=== PATIENT | male | born 1965 | race Caucasian/White ===

== ENCOUNTER 2018-08-06 18:42 | Inpatient (IN) | payer OTHER, BC ==
[2018-08-06] MEDS ORDERED: SODIUM CHLORIDE 1,000 ML IV STA (19:09)
[2018-08-06] MEDS: NOREPINEPHRINE BITARTRATE 4,000 MCG in DEXTROSE 5%-WATER - 496 ML IV SCH (19:25)
[2018-08-06] MEDS ORDERED: NOREPINEPHRINE BITARTRATE 4 MG/4 ML ML IV ONE (19:29)
[2018-08-06 19:35] LABS: VENOUS PO2 35.8 mmHg (30-40)
[2018-08-06 19:40] LABS: VENOUS PH 6.85 (7.31-7.41)
[2018-08-06 19:41] LABS: VENOUS PC02 98.5 mmHg (41-51)
[2018-08-06 19:43] LABS: BASO % 0.8 % (0-2.0); EOS % 0.7 % (0-4.5); HEMATOCRIT 37.9 % (35.4-49); HEMOGLOBIN 11.3 GM/dL (11.7-16.9); LYMPH % 26.9 % (8-40); MCH 30.9 pg (25.7-33.7); MCHC 29.8 g/dl (32.0-35.9); MEAN CELL VOLUME 103.6 fl (80-96); MEAN PLT VOLUME 10.8 fl (7.5-11.1); MONO % 5.2 % (3.8-10.2); NEUT % 66.4 % (42.8-82.8); PLATELET COUNT 218 K/MM3 (134-434); RBC 3.66 M/mm3 (4.00-5.60); RDW 17.6 % (11.9-15.9)
--- NOTE | 2018-08-06 20:04 | PDOC ---
Attending Attestation - Resident Resident Name: Reginald Connors - HPI HPI: 08/06/18 20:15 The patient is a 52 year old male, with a significant past medical history of CHF, Pulmonary Hypertension, O2 Dependent,Sleep Apnea, Constipation,GI Bleed, Renal Failure, ESRD on Hemodialysis, Anemia, Gout, Diabetes Mellitus, who presents to the emergency department for witnessed cardiac arrest at around 1810 this evening. <Jessica Weir - Last Filed: 08/06/18 20:17> - ED Attending Attestation I have performed the following: I have examined & evaluated the patient, The case was reviewed & discussed with the resident, I agree w/resident's findings & plan, Exceptions are as noted - Physicial Exam PE: 08/07/18 01:30 Vitals: Triage Vital signs reviewed General Appearance: Morbidly obese, intubated. CPR in progress Head: Atraumatic, Eyes: Pupils fixed Cardiac:Asystole Lungs: Intubated/ Bilateral Breath Sounds Abdomen: Soft, non distended, normal bowel sounds, non tender to palpation Skin: Warm and dry, no rashes or lesions, no rash, no petechiae Neuro: Unresponsive - Critical Care Time Total Critical Care Time: 65 Critical Care Statement: The care of this patient involved high complexity decision making to prevent further life threatening deterioration of the patient 's condition and/or to evaluate & treat vital organ system(s) failure or risk of failure. - Medical Decision Making 08/06/18 20:09 52 years old past medical history significant for CHF pulmonary hypertension insulin-dependent diabetes renal failure on dialysis Thursday who presents to the emergency department with witnessed cardiac arrest while at dialysis today. At approximately 545 during dialysis patient had a witnessed arrest CPR was started EMS was called upon arrival by EMS at approximately 6 PM patient intubated with a Kendrick airway tube patient was pulseless CPR continued patient was given 1 amp of calcium gluconate 1 amp of sodium bicarbonate, and 3 rounds of epinephrine. High-quality CPR continued during transfer with no return of spontaneous circulation. Patient arrived at the emergency department about 6:30 CPR continued additional bicarbonate and epinephrine given Patient with large amount of vomit in airway difficult to obtain oxygen saturation difficult to auscultate breath sounds decision made to reintubate After suctioning patient reintubated with no complications confirmed by direct visualization auscultation and capnography After greater than 1 hour of total CPR patient regained a pulse blood pressure 160 initially patient noted to be tachycardic but with a blood pressure and a pulse Post arrest EKG intially demonstrated wide complex tachycardia, Repeat EKG showed narrow complex sinus rhythm Hypothermia protocol initiated Reevaluation patient's blood pressure began to drop started on peripheral Levophed central line placed confirmed by ultrasound and x-ray Map greater than 60 Repeat labs notable for hyperkalemia 6.5 patient had a ready received sodium bicarbonate and calcium gluconate insulin and dextrose given Patient's at bedside informed and updated. Prognosis very guarded at this time discussed at length with Patient admitted to ICU for further management. <Richard Valencia - Last Filed: 08/07/18 01:33> Attestations - Attestations 08/06/18 20:16 Documentation prepared by Jessica Weir, acting as medical coding specialist for Richard Valencia MD <Jessica Weir - Last Filed: 08/06/18 20:17>
[2018-08-06 20:08] LABS: INR 1.1 (0.83-1.09)
[2018-08-06 20:11] LABS: ACTIVATED PTT 27.5 SECONDS (25.2-36.5)
[2018-08-06 20:34] LABS: MACROCYTOSIS 1+
[2018-08-06 20:35] LABS: PLATELET ESTIMATE ADEQUATE
--- NOTE | 2018-08-06 20:40 | PDOC ---
History of Present Illness <Judi Storey - Last Filed: 08/06/18 21:05> <Carlos Manuel Montana - Last Filed: 08/06/18 21:16> - History of Present Illness Initial Comments: 08/06/18 22:12 52M with pmh CHF pulmonary hypertension insulin-dependent diabetes renal failure on dialysis M/W/F brought in by EMS after witnessed cardiac arrest while at dialysis today an hour and half before the end. At approximately 545 during dialysis patient had a witnessed arrest CPR was started EMS was called upon arrival by EMS at approximately 6 PM patient intubated with a Kendrick airway tube patient was PEA. CPR with ANGELIA machine continued patient was given 1 amp of calcium gluconate 1 amp of sodium bicarbonate, and 4 rounds of epinephrine. High-quality CPR continued during transfer with no return of spontaneous circulation. Patient arrived at the emergency department about 6:30. Continued CPR with Angelia machine and patient given 3 more rounds of epi, 1 of bicard and 1 of calcium after which the patient switched his rhythm from PEA to Wide complex V-Tach with pulse. Meanwhile large amount of vomit notice in airway with low saturation in the 40- 30's and difficulty venticlating. Patyient was reintubated with ET tube and sat came back up to 100%. Confirmed by direct visualization auscultation and capnography ROSC was obtained 60min post arrest. After suctioning patient reintubated with no complications After greater than 1 hour of total CPR patient regained a pulse blood pressure 160 initially patient noted to be tachycardic but with a blood pressure and a pulse <Reginald Connors - Last Filed: 08/06/18 22:56> - General Chief Complaint: Cardiac Arrest Stated Complaint: CARDIAC ARREST Time Seen by Provider: 08/06/18 19:08 Past History <Judi Storey - Last Filed: 08/06/18 21:05> <Carlos Manuel Montana - Last Filed: 08/06/18 21:16> - Past Medical History Anemia: Yes (REQUIRING TRANSFUSION) Asthma: No Cancer: No Cardiac Disorders: Yes (HYPERKALEMIC CARDIAC ARREST) CVA: No COPD: Yes (RESOLVED) CHF: Yes (DIASTOLIC CHF H/O) Dementia: No Diabetes: Yes (IDDM) GI Disorders: Yes (SLIDING HIATAL HERNIA,MULTIPLE ANTRAL EROSIONS) Disorders: No HTN: Yes (PULMONARY HYPERTENSION H/O) Hypercholesterolemia: Yes Liver Disease: No Seizures: No Thyroid Disease: No - Surgical History Abdominal Surgery: Yes (BILATERAL INGUINAL HERNIA) Appendectomy: No Cardiac Surgery: Yes (EXPLORATORY S/P TRAUMA: 1982) Cholecystectomy: No Lung Surgery: Yes (MAMMARY ARTERY SEVERED BY GLASS REQUIRING THORACOTOMY-1982) Neurologic Surgery: No Orthopedic Surgery: No - Suicide/Smoking/Psychosocial Hx Smoking Status: No Smoking History: Unknown if ever smoked Have you smoked in the past 12 months: No Number of Cigarettes Smoked Daily: 0 If you are a former smoker, when did you quit?: 1994 Hx Alcohol Use: No Drug/Substance Use Hx: No Substance Use Type: None Hx Substance Use Treatment: No <Reginald Connors - Last Filed: 08/06/18 22:56> - Past Medical History Allergies/Adverse Reactions: Allergies Allergy/AdvReac Type Severity Reaction Status Date / Time amoxicillin trihydrate Allergy Intermediate Rash Verified 08/06/18 19:55 [From Augmentin] ciprofloxacin [From Cipro] Allergy Intermediate Rash Verified 08/06/18 19:55 ciprofloxacin HCl Allergy Intermediate Rash Verified 08/06/18 19:55 [From Cipro] potassium clavulanate Allergy Intermediate Rash Verified 08/06/18 19:55 [From Augmentin] cyclosporine Allergy Verified 08/06/18 19:55 Home Medications: Ambulatory Orders Aspirin [ASA -] 81 mg PO DAILY 02/14/16 Atorvastatin Ca [Lipitor] 10 mg PO HS 02/14/16 Gabapentin 400 mg PO DAILY 02/14/16 Sevelamer Carbonate [Renvela] 3,200 mg PO TID 01/05/18 Folic Acid/Vit B Complex and C [Dialyvite Tablet] 1 each PO 08/06/18 Review of Systems - Review of Systems Able to Perform ROS?: No <Reginald Connors - Last Filed: 08/06/18 22:56> *Physical Exam - Vital Signs Last Vital Signs Temp Pulse Resp BP Pulse Ox 61 14 79/59 L 100 08/06/18 19:25 08/06/18 19:05 08/06/18 19:25 08/06/18 19:05 <Judi Storey - Last Filed: 08/06/18 21:05> - Vital Signs Last Vital Signs Temp Pulse Resp BP Pulse Ox 61 14 79/59 L 100 08/06/18 19:25 08/06/18 19:05 08/06/18 19:25 08/06/18 19:05 <Carlos Manuel Montana - Last Filed: 08/06/18 21:16> - Vital Signs Last Vital Signs Temp Pulse Resp BP Pulse Ox 61 14 79/59 L 100 08/06/18 19:25 08/06/18 19:05 08/06/18 19:25 08/06/18 19:05 - Physical Exam General Appearance: Yes: Obese HEENT: positive: Other (intubated, vomitus in the mouth) Respiratory/Chest: positive: Other (ventilated) Gastrointestinal/Abdominal: positive: Other (Greatly protuberant and distended abdomen. ) Neurologic: positive: Other (pupils fixed and dilated.) <Reginald Connors - Last Filed: 08/06/18 22:56> Procedures - Intubation Time of Intubation: 18:45 Intubation Method: orotracheal Blade used: Mac Tube Size (Fr): 7.0 Tube position @ lip (cm): 22 Tube position confirmed by: Direct visualization, CO2 detector, Chest x-ray, Breath sounds Breath Sounds after Intubation: equal Intubation Complications: no complications Post Intubation Xray: Yes <Judi Storey - Last Filed: 08/06/18 21:05> - Central Line Central Line Lumen: triple Central Line Position: internal jugular (L) Complications: none Post Central Line Insertion: sutured, good blood return, position confirmed w/ CXR <Carlos Manuel Montana - Last Filed: 08/06/18 21:16> ED Treatment Course - LABORATORY CBC & Chemistry Diagram: 08/06/18 19:10 08/06/18 19:10 - ADDITIONAL ORDERS Additional order review: Laboratory Results 08/06/18 08/06/18 08/06/18 19:10 19:10 19:10 PT with INR INR PTT (Actin FS) VBG pH POC VBG pCO2 POC VBG pO2 VBG HCO3 VBG O2 Sat (Marzena) VBG Base Excess Sodium Potassium Chloride Carbon Dioxide Anion Gap BUN Creatinine Creat Clearance w eGFR POC Glucometer 398 Random Glucose Lactic Acid 12.2 H* Calcium Total Bilirubin AST ALT Alkaline Phosphatase Troponin I < 0.02 Total Protein Albumin 08/06/18 08/06/18 08/06/18 19:10 19:10 19:10 PT with INR 13.00 INR 1.10 H PTT (Actin FS) 27.5 VBG pH 6.85 L* POC VBG pCO2 98.5 H* POC VBG pO2 35.8 VBG HCO3 16.3 L VBG O2 Sat (Marzena) 30.4 L VBG Base Excess -19.7 L Sodium Cancelled Potassium Cancelled Chloride Cancelled Carbon Dioxide Cancelled Anion Gap Cancelled BUN Cancelled Creatinine Cancelled Creat Clearance w eGFR Cancelled POC Glucometer Random Glucose Cancelled Lactic Acid Calcium Cancelled Total Bilirubin Cancelled AST Cancelled ALT Cancelled Alkaline Phosphatase Cancelled Troponin I Total Protein Cancelled Albumin Cancelled 08/06/18 08/06/18 19:10 19:10 RBC 3.66 L MCV 103.6 H MCHC 29.8 L RDW 17.6 H MPV 10.8 Neutrophils % 66.4 Lymphocytes % 26.9 D Monocytes % 5.2 Eosinophils % 0.7 Basophils % 0.8 POC Glucometer 398 - Medications Given in the ED: ED Medications Discontinued Medications Generic Name Dose Route Start Last Admin Trade Name Devonq PRN Reason Stop Dose Admin Sodium Chloride 1,000 mls @ 1,000 mls/hr 08/06/18 19:09 08/06/18 19:00 Normal Saline - IV 08/06/18 20:08 1,000 mls/hr ASDIR STA Administration <Judi Storey - Last Filed: 08/06/18 21:05> - LABORATORY CBC & Chemistry Diagram: 08/06/18 19:10 08/06/18 20:30 - ADDITIONAL ORDERS Additional order review: Laboratory Results 08/06/18 08/06/18 08/06/18 20:30 19:10 19:10 PT with INR INR PTT (Actin FS) VBG pH POC VBG pCO2 POC VBG pO2 VBG HCO3 VBG O2 Sat (Marzena) VBG Base Excess Sodium 136 Potassium 6.5 H* Chloride 100 Carbon Dioxide 16 L Anion Gap 20 H BUN 56 H Creatinine 5.5 H Creat Clearance w eGFR 10.97 POC Glucometer 398 Random Glucose 424 H* Lactic Acid Calcium 9.0 Total Bilirubin 0.3 AST 120 H ALT 87 H Alkaline Phosphatase 188 H Troponin I < 0.02 Total Protein 6.6 Albumin 2.7 L 08/06/18 08/06/18 08/06/18 19:10 19:10 19:10 PT with INR INR PTT (Actin FS) VBG pH 6.85 L* POC VBG pCO2 98.5 H* POC VBG pO2 35.8 VBG HCO3 16.3 L VBG O2 Sat (Marzena) 30.4 L VBG Base Excess -19.7 L Sodium Cancelled Potassium Cancelled Chloride Cancelled Carbon Dioxide Cancelled Anion Gap Cancelled BUN Cancelled Creatinine Cancelled Creat Clearance w eGFR Cancelled POC Glucometer Random Glucose Cancelled Lactic Acid 12.2 H* Calcium Cancelled Total Bilirubin Cancelled AST Cancelled ALT Cancelled Alkaline Phosphatase Cancelled Troponin I Total Protein Cancelled Albumin Cancelled 08/06/18 19:10 PT with INR 13.00 INR 1.10 H PTT (Actin FS) 27.5 VBG pH POC VBG pCO2 POC VBG pO2 VBG HCO3 VBG O2 Sat (Marzena) VBG Base Excess Sodium Potassium Chloride Carbon Dioxide Anion Gap BUN Creatinine Creat Clearance w eGFR POC Glucometer Random Glucose Lactic Acid Calcium Total Bilirubin AST ALT Alkaline Phosphatase Troponin I Total Protein Albumin 08/06/18 08/06/18 19:10 19:10 RBC 3.66 L MCV 103.6 H MCHC 29.8 L RDW 17.6 H MPV 10.8 Neutrophils % 66.4 Lymphocytes % 26.9 D Monocytes % 5.2 Eosinophils % 0.7 Basophils % 0.8 POC Glucometer 398 - Medications Given in the ED: ED Medications Discontinued Medications Generic Name Dose Route Start Last Admin Trade Name Freq PRN Reason Stop Dose Admin Sodium Chloride 1,000 mls @ 1,000 mls/hr 08/06/18 19:09 08/06/18 19:00 Normal Saline - IV 08/06/18 20:08 1,000 mls/hr ASDIR STA Administration <Carlos Manuel Montana - Last Filed: 08/06/18 21:16> - LABORATORY CBC & Chemistry Diagram: 08/06/18 19:10 08/06/18 20:30 - ADDITIONAL ORDERS Additional order review: Laboratory Results 08/06/18 08/06/18 08/06/18 19:10 19:10 19:10 WBC RBC Hgb Hct MCV MCH MCHC RDW Plt Count MPV Absolute Neuts (auto) Neutrophils % Lymphocytes % Monocytes % Eosinophils % Basophils % Nucleated RBC % PT with INR INR PTT (Actin FS) VBG pH POC VBG pCO2 POC VBG pO2 VBG HCO3 VBG O2 Sat (Marzena) VBG Base Excess Sodium Potassium Chloride Carbon Dioxide Anion Gap BUN Creatinine Creat Clearance w eGFR POC Glucometer 398 Random Glucose Lactic Acid 12.2 H* Calcium Total Bilirubin AST ALT Alkaline Phosphatase Troponin I < 0.02 Total Protein Albumin 08/06/18 08/06/18 08/06/18 19:10 19:10 19:10 WBC RBC Hgb Hct MCV MCH MCHC RDW Plt Count MPV Absolute Neuts (auto) Neutrophils % Lymphocytes % Monocytes % Eosinophils % Basophils % Nucleated RBC % PT with INR 13.00 INR 1.10 H PTT (Actin FS) 27.5 VBG pH 6.85 L* POC VBG pCO2 98.5 H* POC VBG pO2 35.8 VBG HCO3 16.3 L VBG O2 Sat (Marzena) 30.4 L VBG Base Excess -19.7 L Sodium Cancelled Potassium Cancelled Chloride Cancelled Carbon Dioxide Cancelled Anion Gap Cancelled BUN Cancelled Creatinine Cancelled Creat Clearance w eGFR Cancelled POC Glucometer Random Glucose Cancelled Lactic Acid Calcium Cancelled Total Bilirubin Cancelled AST Cancelled ALT Cancelled Alkaline Phosphatase Cancelled Troponin I Total Protein Cancelled Albumin Cancelled 08/06/18 19:10 WBC 23.0 H RBC 3.66 L Hgb 11.3 L Hct 37.9 MCV 103.6 H MCH 30.9 MCHC 29.8 L RDW 17.6 H Plt Count 218 MPV 10.8 Absolute Neuts (auto) 15.3 H Neutrophils % 66.4 Lymphocytes % 26.9 D Monocytes % 5.2 Eosinophils % 0.7 Basophils % 0.8 Nucleated RBC % 1 H PT with INR INR PTT (Actin FS) VBG pH POC VBG pCO2 POC VBG pO2 VBG HCO3 VBG O2 Sat (Marzena) VBG Base Excess Sodium Potassium Chloride Carbon Dioxide Anion Gap BUN Creatinine Creat Clearance w eGFR POC Glucometer Random Glucose Lactic Acid Calcium Total Bilirubin AST ALT Alkaline Phosphatase Troponin I Total Protein Albumin 08/06/18 08/06/18 19:10 19:10 RBC 3.66 L MCV 103.6 H MCHC 29.8 L RDW 17.6 H MPV 10.8 Neutrophils % 66.4 Lymphocytes % 26.9 D Monocytes % 5.2 Eosinophils % 0.7 Basophils % 0.8 POC Glucometer 398 - RADIOLOGY Radiology Studies Ordered: Category Date Time Status CXRPORT [CHEST X-RAY PORTABLE*] [RAD] Stat Radiology 08/06/18 19:59 Completed - Medications Given in the ED: ED Medications Discontinued Medications Generic Name Dose Route Start Last Admin Trade Name John PRN Reason Stop Dose Admin Sodium Chloride 1,000 mls @ 1,000 mls/hr 08/06/18 19:09 08/06/18 19:00 Normal Saline - IV 08/06/18 20:08 1,000 mls/hr ASDIR STA Administration <Reginald Connors - Last Filed: 08/06/18 22:56> Medical Decision Making - Medical Decision Making 08/06/18 22:20 Hypotension correcteed withplacement of RIJ central line and norepinephrine. Correcting hyperkalemia with insulin and albuterol. Calcium already given to protext the heart. EKG @ 18:57: Wide QRS tachycardia, RBBB, inferior infarct, age undertermined, vent rate 129 EKG @20:51: Unusual P axis, possible ectopic atrial rhythm, RBB, vent rate 67 PAtient admitted to ICU 08/06/18 22:55 <Reginald Connors - Last Filed: 08/06/18 22:56> *DC/Admit/Observation/Transfer <Judi Storey - Last Filed: 08/06/18 21:05> <Carlos Manuel Montana - Last Filed: 08/06/18 21:16> - Discharge Dispostion Decision to Admit order: Yes <Reginald Connors - Last Filed: 08/06/18 22:56> Diagnosis at time of Disposition: Cardiac arrest
--- NOTE | 2018-08-06 20:46 | PN ---
Teaching Attending Note Name of Resident: Jose L Hill ATTENDING PHYSICIAN STATEMENT I saw and evaluated the patient. I reviewed the resident's note and discussed the case with the resident. I agree with the resident's findings and plan as documented. SUBJECTIVE: Patient is a 52 year old man with PMH of CHF, pulmonary hypertension, insulin- treated DM, ESRD on hemodialysis (M-W-F) and chronic hypotension (on midodrine) who presents to the ER with witnessed cardiac arrest while at dialysis today. At approximately 545 during dialysis patient had a witnessed arrest CPR was started EMS was called upon arrival by EMS at approximately 6 PM patient intubated with a Kendrick airway tube patient was pulseless CPR continued patient was given 1 amp of calcium gluconate 1 amp of sodium bicarbonate, and 3 rounds of epinephrine. High-quality CPR continued during transfer with no return of spontaneous circulation. Patient arrived at the emergency department about 6:30 CPR continued additional bicarbonate and epinephrine given. Patient with large amount of vomit in airway difficult to obtain oxygen saturation difficult to auscultate breath sounds decision made to reintubate. After greater than 1 hour of total CPR patient regained a pulse blood pressure 160 initially patient noted to be tachycardic but with a low blood pressure. Patient started on levphed and is on hypothermia protocol. OBJECTIVE: Unresponsive and intubated; obese Vital Signs Period Temp Pulse Resp BP Sys/[place] Pulse Ox Last 24 Hr 97.7 F 0-122 14-16 00-99/00-59 97-100 HEENT: No Jaundice, eye redness or discharge, Normocephalic, atraumatic. OGT in place. External ears are normal; No nasal discharge. Neck: Supple, nontender. No palpable adenopathy or thyromegaly. No JVD Chest: Skin tears on chest wall and sequelae of pruritus. Clear to auscultation and percussion. Heart: Regular. No S3, rub or murmur Abdomen: Distended, soft, and tympanic no HSM. No rebound or guarding. Hypoactive bowel sounds. Ext: Peripheral pulses intact. No leg edema. Left arm AV fistula. Skin: Warm and dry. No petechiae, rash or ecchymosis. Neuro: Intubated and unresponsive. Psych: Cannot assess Current Medications Generic Name Dose Route Start Last Admin Trade Name Freq PRN Reason Stop Dose Admin Chlorhexidine Gluconate 1 applic 08/06/18 22:00 Hibiclens For Decolonization - TP HS ELEONORA Norepinephrine Bitartrate 4, 500 mls @ 37.5 mls/hr 08/06/18 19:30 08/06/18 20 :00 000 mcg/ Dextrose IV 8 mcg/min TITR ELEONORA 60 mls/hr Titration Protocol 5 MCG/MIN Mupirocin 1 applic 08/06/18 22:00 Bactroban Ointment (For Decolonization) - NS 08/11/18 21:59 BID [facility] Home Medications Medication Instructions Recorded Aspirin [ASA -] 81 mg PO DAILY 02/14/16 Atorvastatin Ca [Lipitor] 10 mg PO HS 02/14/16 Gabapentin 400 mg PO DAILY 02/14/16 Sevelamer Carbonate [Renvela] 3,200 mg PO TID 01/05/18 Folic Acid/Vit B Complex and C 1 each PO 08/06/18 [Dialyvite Tablet] Abnormal Lab Results 08/06/18 08/06/18 08/06/18 19:10 19:10 19:10 WBC 23.0 H RBC 3.66 L Hgb 11.3 L MCV 103.6 H MCHC 29.8 L RDW 17.6 H Absolute Neuts (auto) 15.3 H Monocytes % (Manual) 3 L D Myelocytes % (Man) 5 H Nucleated RBC % 4 H Metamyelocytes 3 H INR 1.10 H ABG pH ABG pCO2 at Pt Temp ABG pO2 at Pt Temp ABG HCO3 ABG Base Excess VBG pH 6.85 L* POC VBG pCO2 98.5 H* VBG HCO3 16.3 L VBG O2 Sat (Marzena) 30.4 L VBG Base Excess -19.7 L Potassium Carbon Dioxide Anion Gap BUN Creatinine Random Glucose Lactic Acid AST ALT Alkaline Phosphatase Albumin 08/06/18 08/06/18 08/06/18 19:10 20:30 22:20 WBC RBC Hgb MCV MCHC RDW Absolute Neuts (auto) Monocytes % (Manual) Myelocytes % (Man) Nucleated RBC % Metamyelocytes INR ABG pH 6.96 L* ABG pCO2 at Pt Temp 75.1 H* ABG pO2 at Pt Temp 126 H ABG HCO3 16.1 L ABG Base Excess -17.2 L VBG pH POC VBG pCO2 VBG HCO3 VBG O2 Sat (Marzena) VBG Base Excess Potassium 6.5 H* Carbon Dioxide 16 L Anion Gap 20 H BUN 56 H Creatinine 5.5 H Random Glucose 424 H* Lactic Acid 12.2 H* AST 120 H ALT 87 H Alkaline Phosphatase 188 H Albumin 2.7 L ASSESSMENT AND PLAN: 1. ESRD/Post cardiac arrest and resuscitation - Etiology of cardiac arrest is unclear. Patient is being managed in the ICU on the ventilator and hypothermia blanket in place. Will manage hyperkalemia conservatively with Ca gluconate, glucose and insulin, pending dialysis. Once stable, will get abdominal CT to evaluate distension. Its unclear whether leukocytosis preceded CPR. No obvious source of infection. Sepsis workup done; will consult ID and ?treat with broad spectrum antibiotics pending culture. 2. Hypoalbuminemia - Possibly due to combined effects of malnutrition and inflammation associated with comorbid chronic conditions. Will ensure adequate dietary protein intake and also consult fur tinter. 3. DM For now, we will hold the home diabetes drugs and implement sliding scale insulin regimen. Provide comprehensive diabetes care with patient teaching and counseling about the importance of adherence to prescribed diabetes regimen, euglycemia, eye care and foot care. 4. Macrocytic Anemia - Do basic anemia work up including serial stool guaiacs, reticulocyte count and iron studies. Check B12 and folate levels. 5. Obesity Once clincially stable and appropriate, will after school counselor on the risks associated with obesity. Will provide patient all the necessary assistance, counseling and positive reinforcement to facilitate weight loss. Consult fur tinter. 6. DVT prophylaxis - Heparin 5000u sq tid. 7. Advance directives - Full code
[2018-08-06 21:09] LABS: ALBUMIN 2.7 g/dl (3.4-5.0); ALK PHOS 188 U/L (45-117); ANION GAP 20 MMOL/L (8-16); BILIRUBIN,TOTAL 0.3 mg/dL (0.2-1); BLOOD UREA NITROGEN 56 mg/dL (7-18); CHLORIDE 100 mmol/L (98-107); CO2 16 mmol/L (21-32); CREATININE 5.5 mg/dL (0.55-1.3); SGOT/AST 120 U/L (15-37); SGPT/ALT 87 U/L (13-61); SODIUM 136 mmol/L (136-145); TOT PROT 6.6 g/dl (6.4-8.2)
[2018-08-06 21:11] LABS: GLUCOSE,RANDOM 424 mg/dL (74-106)
[2018-08-06 21:12] LABS: POTASSIUM 6.5 mmol/L (3.5-5.1)
[2018-08-06] MEDS ORDERED: INSULIN REGULAR HUMAN 100 UNITS/ML *VIAL IVPUSH ONE (21:18)
[2018-08-06] MEDS ORDERED: ALBUTEROL SO4 0.5 % INH SOLN 2.5 MG/0.5 ML VIAL.NEB. NEB ONE (21:20)
[2018-08-06] MEDS ORDERED: INSULIN REGULAR HUMAN 100 UNITS/ML *VIAL ONE (21:34)
--- NOTE | 2018-08-06 22:20 | HP ---
CHIEF COMPLAINT: Cardiac Arrest PCP: Dr. Schroeder HISTORY OF PRESENT ILLNESS: 52yo M with h/o ESRD (M/W/F), dCHF, IDDM, pulmonary HTN, MJ, gout, and anemia of chronic disease who presented to the ED due to a witnessed cardiac arrest. Pt was receiving HD today and about 1.5 hrs into his session he was witnessed to become unresponsive 2/2 to sudden cardiac arrest (~5:45pm). During his dialysis session it was noted that pt was hypotensive and was given Midodrine for support. Pt has previously been on Midodrine before, however he did not respond to his baseline dosing this time. ACLS protocol was followed and upon arrival of EMS pt was intubated with a Kendrick Supraglottic tube and placed on a kelly compression device. Pt's original rhythm was noted to be PEA. Pt received 4 rounds of epi, 1 amp NaHCO3, 1 amp CaGluc in the field. Pt arrived at the ED shortly thereafter where CPR/ACLS protocol was continued. He received another 3 rounds of epi, 1 amp HCO3, and 1 amp CaGluc while noting rhythm changes to Wide Complex ventricular tachycardia. At this point pt was noted to have large amount secretions from his oropharynx with desaturation to 40's on pulse oximetry. Pt's was reintubated with size 7.0 ETT at the 22 jania resulting in increased saturations and notable ROSC at this time (total arrest time 50minutes). Pt had no return of neurological function and thus post-arrest TTM was initiated. Pt was placed on Levophed due to refractory hypotension at this time. PAST MEDICAL HISTORY: ESRD (M/W/F) dCHF IDDM PAH HTN MJ Gout Anemia of chronic disease PAST SURGICAL HISTORY: AVF creation Social History: Unable to obtain Family History: Unable to obtain Allergies amoxicillin trihydrate [From Augmentin] Allergy (Intermediate, Verified 19:55) Rash ciprofloxacin [From Cipro] Allergy (Intermediate, Verified 08/06/18 19:55) Rash ciprofloxacin HCl [From Cipro] Allergy (Intermediate, Verified 08/06/18 19:55) Rash potassium clavulanate [From Augmentin] Allergy (Intermediate, Verified 08/06/18 19:55) Rash cyclosporine Allergy (Verified 08/06/18 19:55) HOME MEDICATIONS: Home Medications Medication Instructions Recorded Aspirin [ASA -] 81 mg PO DAILY 02/14/16 Atorvastatin Ca [Lipitor] 10 mg PO HS 02/14/16 Gabapentin 400 mg PO DAILY 02/14/16 Sevelamer Carbonate [Renvela] 3,200 mg PO TID 01/05/18 Folic Acid/Vit B Complex and C 1 each PO 08/06/18 [Dialyvite Tablet] REVIEW OF SYSTEMS Unable to obtain PHYSICAL EXAMINATION Vital Signs - 24 hr 08/06/18 08/06/18 08/06/18 18:45 18:50 19:00 Temperature Pulse Rate 0 L Pulse Rate [ Apical] Respiratory 14 Rate Blood Pressure 00/00 L Blood Pressure [Right Arm] O2 Sat by Pulse 100 Oximetry (%) 08/06/18 08/06/18 08/06/18 19:05 19:25 20:00 Temperature 97.7 F Pulse Rate 122 H 61 81 Pulse Rate [ 78 Apical] Respiratory 14 16 Rate Blood Pressure 79/59 L 89/50 L Blood Pressure 89/50 L [Right Arm] O2 Sat by Pulse 100 100 Oximetry (%) 08/06/18 21:15 Temperature Pulse Rate Pulse Rate [ 81 Apical] Respiratory 16 Rate Blood Pressure Blood Pressure 99/55 L [Right Arm] O2 Sat by Pulse 100 Oximetry (%) GENERAL: Unresponsive to painful stimuli HEENT: Dried blood of left nare, NC, atraumatic calvarium, fixed pupils without corneal reflex, no doll's eyes, no gag reflex elicited, ETT noted with feculent materials suctions from oropharynx NECK: No JVD, trachea midline LUNGS: Rhonchorous breath sounds bilaterally. No wheezes, and no crackles. AC ventilator mode HEART: RRR, normal S1 and S2 without murmu. Chest wall noted with abrasions from Kelly device ABDOMEN: Soft, distended, distant hypoactive bowel sounds, no livedo reticularis MUSCULOSKELETAL: No CVA tenderness. EXTREMITIES: 1+ DP pulses, warm, No peripheral edema. Cap refill ~2-3sec. L AVF noted with weak palpable thrill NEUROLOGICAL: Fixed pupils, no corneal reflex, no doll's eyes appreciated, no gag reflex with ETT suction catheter SKIN: Warm, dry, normal turgor, no rashes Laboratory Results 08/06/18 08/06/18 08/06/18 19:10 19:10 19:10 WBC 23.0 H RBC 3.66 L Hgb 11.3 L Hct 37.9 MCV 103.6 H MCH 30.9 MCHC 29.8 L RDW 17.6 H Plt Count 218 MPV 10.8 Absolute Neuts (auto) 15.3 H Neutrophils % 66.4 Neutrophils % (Manual) 51.0 D Band Neutrophils % 10.0 Lymphocytes % 26.9 D Lymphocytes % (Manual) 25.0 Monocytes % 5.2 Monocytes % (Manual) 3 L D Eosinophils % 0.7 Eosinophils % (Manual) 1.0 D Basophils % 0.8 Basophils % (Manual) 0.0 Myelocytes % (Man) 5 H Nucleated RBC % 4 H Metamyelocytes 3 H Platelet Estimate Adequate Macrocytosis 1+ PT with INR 13.00 INR 1.10 H PTT (Actin FS) 27.5 VBG pH 6.85 L* POC VBG pCO2 98.5 H* POC VBG pO2 35.8 VBG HCO3 16.3 L VBG O2 Sat (Marzena) 30.4 L VBG Base Excess -19.7 L Sodium Potassium Chloride Carbon Dioxide Anion Gap BUN Creatinine Creat Clearance w eGFR POC Glucometer Random Glucose Lactic Acid Calcium Total Bilirubin AST ALT Alkaline Phosphatase Troponin I Total Protein Albumin Blood Type Antibody Screen 08/06/18 08/06/18 08/06/18 19:10 19:10 19:10 WBC RBC Hgb Hct MCV MCH MCHC RDW Plt Count MPV Absolute Neuts (auto) Neutrophils % Neutrophils % (Manual) Band Neutrophils % Lymphocytes % Lymphocytes % (Manual) Monocytes % Monocytes % (Manual) Eosinophils % Eosinophils % (Manual) Basophils % Basophils % (Manual) Myelocytes % (Man) Nucleated RBC % Metamyelocytes Platelet Estimate Macrocytosis PT with INR INR PTT (Actin FS) VBG pH POC VBG pCO2 POC VBG pO2 VBG HCO3 VBG O2 Sat (Marzena) VBG Base Excess Sodium Cancelled Potassium Cancelled Chloride Cancelled Carbon Dioxide Cancelled Anion Gap Cancelled BUN Cancelled Creatinine Cancelled Creat Clearance w eGFR Cancelled POC Glucometer Random Glucose Cancelled Lactic Acid 12.2 H* Calcium Cancelled Total Bilirubin Cancelled AST Cancelled ALT Cancelled Alkaline Phosphatase Cancelled Troponin I < 0.02 Total Protein Cancelled Albumin Cancelled Blood Type Antibody Screen 08/06/18 08/06/18 08/06/18 19:10 19:10 20:30 WBC RBC Hgb Hct MCV MCH MCHC RDW Plt Count MPV Absolute Neuts (auto) Neutrophils % Neutrophils % (Manual) Band Neutrophils % Lymphocytes % Lymphocytes % (Manual) Monocytes % Monocytes % (Manual) Eosinophils % Eosinophils % (Manual) Basophils % Basophils % (Manual) Myelocytes % (Man) Nucleated RBC % Metamyelocytes Platelet Estimate Macrocytosis PT with INR INR PTT (Actin FS) VBG pH POC VBG pCO2 POC VBG pO2 VBG HCO3 VBG O2 Sat (Marzena) VBG Base Excess Sodium 136 Potassium 6.5 H* Chloride 100 Carbon Dioxide 16 L Anion Gap 20 H BUN 56 H Creatinine 5.5 H Creat Clearance w eGFR 10.97 POC Glucometer 398 Random Glucose 424 H* Lactic Acid Calcium 9.0 Total Bilirubin 0.3 AST 120 H ALT 87 H Alkaline Phosphatase 188 H Troponin I Total Protein 6.6 Albumin 2.7 L Blood Type A POSITIVE Antibody Screen Negative ASSESSMENT/PLAN: Cardiac arrest with ROSC after 60 minutes Distributive shock Mixed metabolic and respiratory acidosis Lactic acidosis Abdominal distention Leukocytosis Hyperkalemia Transaminitis ESRD (M/W/F HD) IDDM HFpEF Neuro: No neurological return of baseline after PEA to V-tach arrest Begin TTM for target of <33* C if possible declining at 0.5*C per hour (Head CT needed for r/o ICH prior to initiation) --Start 24hr TTM once target temperature reached No brainstem reflexes appreciated; will assess after TTM however poor prognosis given neurological findings and time of arrest >>>15 min Respiratory: Pt on AC mode of vent 500/14/100%/5 Maintain saturations of >90% Likely aspiration pneumonitis given findings during arrest and post-arrest Continue further suctioning Low threshold for antibiotic administration given pneumonitis picture CXR daily Monitor ABG for interval improvement of respiratory acidosis while on AC Cardiovascular: Differential wide on cardiac arrest --Most likely 2/2 to hypotension during dialysis resulting in aspiration pneumonitis and resultant severe hypoxia --Currently on Levophed 8mcg; titrate for MAP 65+ --Troponins elevated due to cardiac arrest; no need to trend to peak Cardiology on board Renal: Pt anuric per ; no need for clements Nephrology on board; discussion re: possible dialysis in AM for correction of metabolic derangments Monitor Cr/BUN; increase multifactorial with global hypotension and improper dialysis being top Hyperkalemia likely factor of Cr failure and cell lysis; pt given CaGluc, albuterol, and insulin prior; trend K+ HCO3 amps as needed for mitigation of metabolic acidosis while lactic acidosis clears GI: Elevated transaminitis likely early liver injury vs. early shock liver presentation Trend LFTs but expect to increase in short term due to global hypotension Distention likely insufflation from supraglottic airway Decompressive OG placed with resultant AXR showing malpositioning of OG --Removed OG and NG placed by me in R nare (jania 65) with better stomach auscultation and notable return of feculant material through wall suction --AXR ordered with f/u showing placement below diaphragm Endocrine: BGM ACHS and ISS Strict glycemic control paramount in critically ill patient; goal 120-150 ID: Leukocytosis likely reactive, however must r/o reactive on top of infection Monitor temp BCx and UCx ordered in ED Lactic acidosis elevated 2/2 to cardiac arrest, continue to monitor ID on board One dose Meropenem for broadspectrum coverage to be dosed by pharmacy given ESRD FEN: Fluids: Use for CV stability as needed with monitoring volume status Electrolyte abnormalities: Hyperkalemia Nutrition: intubated Dispo: ICU admission GOC: Verbalized that pt has poor prognosis given sheer amount of time of the cardiac arrest without any meaninful return of neurological function. Per currently pt remains full code with all measures wanted. Son is en route as well. Further discussions to continue as weight of prognosis is still being processed by family. Case discussed with Dr. Noé Hill, DO - Im PGy-2 Visit type - Emergency Visit Emergency Visit: Yes ED Registration Date: 08/06/18 Care time: The patient presented to the Emergency Department on the above date and was hospitalized for further evaluation of their emergent condition. - New Patient This patient is new to me today: Yes Date on this admission: 08/07/18 - Critical Care Critical Care patient: Yes Total Critical Care Time (in minutes): 45 Critical Care Statement: The care of this patient involved high complexity decision making to prevent further life threatening deterioration of the patient 's condition and/or to evaluate & treat vital organ system(s) failure or risk of failure.
[2018-08-06 22:30] LABS: ARTERIAL BLD GAS O2 SATURATION 95.7 % (95-98); ARTERIAL BLOOD GAS BASE EXCESS -17.2 meq/l (-2-2); ARTERIAL BLOOD GAS PO2 126 mmHg (80-105); CARBOXYHEMOGLOBIN 0.7 % (0-2)
[2018-08-06 22:33] LABS: ALLENS TEST POSITIVE
[2018-08-06 22:37] LABS: ARTERIAL BLOOD GAS PCO2 75.1 mmHg (35-45); ARTERIAL BLOOD GAS pH 6.96 (7.35-7.45)
[2018-08-06] MEDS: CHLORHEXIDINE GLUCONATE 4% CLEANSER FOR DECOLONIZATION TP SCH (23:36)
[2018-08-06] MEDS: MUPIROCIN 2% TOPICAL OINTMENT FOR DECOLONIZATION NS SCH (23:56)
--- NOTE | 2018-08-07 00:09 | CONSULT ---
Consultation: REQUESTING PROVIDER: Dr. Connors CONSULT REQUEST: We have been asked to medically evaluate this patient for s/p cardiac arrest. HISTORY OF PRESENT ILLNESS: History taken by pt's and ED staff. 52M w/ pmhx of IDDM, diastolic CHF, pulmonary HTN, renal failure (on HD MWF), sleep apnea, gout presented to the ED after a cardiac arrest. Pt was getting hemodialysis when had a witnessed cardiac arrest 1.5 hours prior to the completion of his HD session at about 5:45pm. CPR was started and upon EMS arrival, pt was intubated with a Kendrick airway tube noted to be in PEA. He was then given 1 amp of calcium gluconate 1 amp of sodium bicarbonate, and 4 rounds of epinephrine. High-quality CPR continued during transfer with no return of spontaneous circulation. Upon arrival in the ED at 630pm, pt presented with continued CPR via TOPHER machine. He was given 3 more rounds of epi, 1 of bicarb and 1 of calcium after which the patient switched his rhythm from PEA to Wide complex V-Tach with a pulse. Large amount of vomit was noted in pt's oropharynx with desaturation in the 30-40s. As a result, pt as re-intubated with an ET tube which improved O2 sat to 100%. ROSC as obtained about 60 min post-arrest. Upon encounter, pt was started on hypothermia treatment for post-cardiac arrest protocol. He was also noted to be hyperkalemix at 6.5 after which he was given insulin and albuterol as well as previously treated with calcium gluconate. 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 Duarte about 2 weeks ago due to symptoms of shortness of breath and cyanotic lips during dialysis. Pt was subsequently advised to take Midodrine before, during, and after dialysis to prevent hypotensive episodes during dialysis. Pt has known history of hypotension over the pats 6-7 months. denies any pt history or family history of cardiac arrest. REVIEW OF SYSTEMS: Unable to obtain. PHYSICAL EXAMINATION Vital Signs - 24 hr 08/06/18 08/06/18 08/06/18 18:45 18:50 19:00 Temperature Pulse Rate 0 L Pulse Rate [ Apical] Respiratory 14 Rate Blood Pressure 00/00 L Blood Pressure [Right Arm] O2 Sat by Pulse 100 Oximetry (%) 03/08/06/18 08/06/18 19:05 19:25 20:00 Temperature 97.7 F Pulse Rate 122 H 61 81 Pulse Rate [ 78 Apical] Respiratory 14 16 Rate Blood Pressure 79/59 L 89/50 L Blood Pressure 89/50 L [Right Arm] O2 Sat by Pulse 100 100 Oximetry (%) 08/06/18 08/06/18 08/06/18 21:15 22:22 22:24 Temperature Pulse Rate 82 Pulse Rate [ 81 Apical] Respiratory 16 14 Rate Blood Pressure Blood Pressure 99/55 L [Right Arm] O2 Sat by Pulse 100 97 Oximetry (%) GENERAL: Intubated. Unresponsive to sternal rub. HEENT: AT/NC. Pupils fixed b/l. ET tube in place. Vomit remnants noted in oropharynx. NG tube in place. NECK: RIJ line in place. LUNGS: scattered rhonchi b/l. HEART: RRR. S1, S2. No murmurs noted. ABDOMEN: Obese. Significantly distended irreguarly shaped abdomen. No fluid shift, MUSCULOSKELETAL: EXTREMITIES: 2+ b/l dorsalis pedis pulses. NEUROLOGICAL: Absent pupillary or gag reflex b/l. SKIN: Multiple superficial lesions noted on midsternum. Laboratory Results - last 24 hr 08/06/18 08/06/18 08/06/18 19:10 19:10 19:10 WBC 23.0 H RBC 3.66 L Hgb 11.3 L Hct 37.9 MCV 103.6 H MCH 30.9 MCHC 29.8 L RDW 17.6 H Plt Count 218 MPV 10.8 Absolute Neuts (auto) 15.3 H Neutrophils % 66.4 Neutrophils % (Manual) 51.0 D Band Neutrophils % 10.0 Lymphocytes % 26.9 D Lymphocytes % (Manual) 25.0 Monocytes % 5.2 Monocytes % (Manual) 3 L D Eosinophils % 0.7 Eosinophils % (Manual) 1.0 D Basophils % 0.8 Basophils % (Manual) 0.0 Myelocytes % (Man) 5 H Nucleated RBC % 4 H Metamyelocytes 3 H Platelet Estimate Adequate Macrocytosis 1+ PT with INR 13.00 INR 1.10 H PTT (Actin FS) 27.5 Anticoagulation Therapy Puncture Site Patient Temperature ABG pH ABG pCO2 at Pt Temp ABG pO2 at Pt Temp ABG HCO3 ABG O2 Sat (Measured) ABG O2 Content ABG Base Excess Get Test VBG pH 6.85 L* POC VBG pCO2 98.5 H* POC VBG pO2 35.8 VBG HCO3 16.3 L VBG O2 Sat (Marzena) 30.4 L VBG Base Excess -19.7 L Carboxyhemoglobin Methemoglobin O2 Delivery Device Oxygen Flow Rate Vent Mode Vent Rate Mechanical Rate PEEP Pressure Support Vent Sodium Potassium Chloride Carbon Dioxide Anion Gap BUN Creatinine Creat Clearance w eGFR POC Glucometer Random Glucose Lactic Acid Calcium Total Bilirubin AST ALT Alkaline Phosphatase Troponin I Total Protein Albumin Blood Type Antibody Screen 08/06/18 08/06/18 08/06/18 19:10 19:10 19:10 WBC RBC Hgb Hct MCV MCH MCHC RDW Plt Count MPV Absolute Neuts (auto) Neutrophils % Neutrophils % (Manual) Band Neutrophils % Lymphocytes % Lymphocytes % (Manual) Monocytes % Monocytes % (Manual) Eosinophils % Eosinophils % (Manual) Basophils % Basophils % (Manual) Myelocytes % (Man) Nucleated RBC % Metamyelocytes Platelet Estimate Macrocytosis PT with INR INR PTT (Actin FS) Anticoagulation Therapy Puncture Site Patient Temperature ABG pH ABG pCO2 at Pt Temp ABG pO2 at Pt Temp ABG HCO3 ABG O2 Sat (Measured) ABG O2 Content ABG Base Excess Get Test VBG pH POC VBG pCO2 POC VBG pO2 VBG HCO3 VBG O2 Sat (Marzena) VBG Base Excess Carboxyhemoglobin Methemoglobin O2 Delivery Device Oxygen Flow Rate Vent Mode Vent Rate Mechanical Rate PEEP Pressure Support Vent Sodium Cancelled Potassium Cancelled Chloride Cancelled Carbon Dioxide Cancelled Anion Gap Cancelled BUN Cancelled Creatinine Cancelled Creat Clearance w eGFR Cancelled POC Glucometer Random Glucose Cancelled Lactic Acid 12.2 H* Calcium Cancelled Total Bilirubin Cancelled AST Cancelled ALT Cancelled Alkaline Phosphatase Cancelled Troponin I < 0.02 Total Protein Cancelled Albumin Cancelled Blood Type Antibody Screen 08/06/18 08/06/18 08/06/18 19:10 19:10 20:30 WBC RBC Hgb Hct MCV MCH MCHC RDW Plt Count MPV Absolute Neuts (auto) Neutrophils % Neutrophils % (Manual) Band Neutrophils % Lymphocytes % Lymphocytes % (Manual) Monocytes % Monocytes % (Manual) Eosinophils % Eosinophils % (Manual) Basophils % Basophils % (Manual) Myelocytes % (Man) Nucleated RBC % Metamyelocytes Platelet Estimate Macrocytosis PT with INR INR PTT (Actin FS) Anticoagulation Therapy Puncture Site Patient Temperature ABG pH ABG pCO2 at Pt Temp ABG pO2 at Pt Temp ABG HCO3 ABG O2 Sat (Measured) ABG O2 Content ABG Base Excess Get Test VBG pH POC VBG pCO2 POC VBG pO2 VBG HCO3 VBG O2 Sat (Marzena) VBG Base Excess Carboxyhemoglobin Methemoglobin O2 Delivery Device Oxygen Flow Rate Vent Mode Vent Rate Mechanical Rate PEEP Pressure Support Vent Sodium 136 Potassium 6.5 H* Chloride 100 Carbon Dioxide 16 L Anion Gap 20 H BUN 56 H Creatinine 5.5 H Creat Clearance w eGFR 10.97 POC Glucometer 398 Random Glucose 424 H* Lactic Acid Calcium 9.0 Total Bilirubin 0.3 AST 120 H ALT 87 H Alkaline Phosphatase 188 H Troponin I Total Protein 6.6 Albumin 2.7 L Blood Type A POSITIVE Antibody Screen Negative 08/06/18 22:20 WBC RBC Hgb Hct MCV MCH MCHC RDW Plt Count MPV Absolute Neuts (auto) Neutrophils % Neutrophils % (Manual) Band Neutrophils % Lymphocytes % Lymphocytes % (Manual) Monocytes % Monocytes % (Manual) Eosinophils % Eosinophils % (Manual) Basophils % Basophils % (Manual) Myelocytes % (Man) Nucleated RBC % Metamyelocytes Platelet Estimate Macrocytosis PT with INR INR PTT (Actin FS) Anticoagulation Therapy No Result Required. Puncture Site Right radial Patient Temperature 96 ABG pH 6.96 L* ABG pCO2 at Pt Temp 75.1 H* ABG pO2 at Pt Temp 126 H ABG HCO3 16.1 L ABG O2 Sat (Measured) 95.7 ABG O2 Content 16.6 ABG Base Excess -17.2 L Get Test Positive VBG pH POC VBG pCO2 POC VBG pO2 VBG HCO3 VBG O2 Sat (Marzena) VBG Base Excess Carboxyhemoglobin 0.7 Methemoglobin 0.6 O2 Delivery Device Vent Oxygen Flow Rate 100% Vent Mode No Result Required. Vent Rate 14 Mechanical Rate No Result Required. PEEP 5.0 Pressure Support Vent No Result Required. Sodium Potassium Chloride Carbon Dioxide Anion Gap BUN Creatinine Creat Clearance w eGFR POC Glucometer Random Glucose Lactic Acid Calcium Total Bilirubin AST ALT Alkaline Phosphatase Troponin I Total Protein Albumin Blood Type Antibody Screen Active Medications Chlorhexidine Gluconate (Hibiclens For Decolonization -) 1 applic TP HS ELEONORA Last Admin: 08/06/18 23:36 Dose: 1 applic Norepinephrine Bitartrate 4, (000 mcg/ Dextrose) 500 mls @ 37.5 mls/hr IV TITR ELEONORA; Protocol Last Titration: 08/06/18 20:00 Dose: 8 mcg/min, 60 mls/hr Vasopressin 50 units/ Sodium (Chloride) 100 mls @ 4 mls/hr IVPB ASDIR ELEONORA; Protocol Mupirocin (Bactroban Ointment (For Decolonization) -) 1 applic NS BID ELEONORA Stop: 08/11/18 21:59 Last Admin: 08/06/18 23:56 Dose: Not Given CONSULTS: Cardio- Dr. Duarte IMAGING: * EKG (18:57:54): Wide QRS tachycardia, RBBB, HR 129, QTc 577 * EKG (20:51:20): sinus rhythm, RBBB, HR 67, QTc 481 ms ASSESSMENT/PLAN: 52M w/ pmhx of IDDM, diastolic CHF, pulmonary HTN, renal failure (on HD MWF), sleep apnea, gout presented to the ED after a cardiac arrest CV #Post-cardiac arrest and resuscitation; likely 2/2 HD-induced hypotension, r/o infection -Pt achieved ROSC after ~60 min after multiple cycles of epi -Cont Levophed GTT and Vasopressin GTT for pressor support; maintain MAP >65 -Currently on hypothermia protocol; maintain at 33 degrees C [id number] -Trops neg x1, will repeat trops; EKG noted above -Cardio consulted #Lactic Acidosis -Initial lactate 12.2; will repeat lactate RENAL #CKD on HD MWF -likely 2/2 uncontrolled IDDM -nephro consulted -avoid nephrotoxins #Hyperkalemia; K+ 6.5 -given calcium gluconate, insulin, albuterol -will repeat CMP NEURO -Not currently on sedation -Neurochecks GI #Transaminitis -may be due to hepatic injury as a result of poor perfusion -repeat CMP in AM ENDO #IDDM -hold home meds -BGM/ISS ACHS ID -BCx, UCx, U/A pending; r/o infection Prophylaxis -SCDs/SQH -Protonix 4 mg IVP QD FEN -no IVf -replete lytes PRN (K+) -NPO Dispo -admit to ICU -full code Visit type - Emergency Visit Emergency Visit: Yes ED Registration Date: 08/06/18 Care time: The patient presented to the Emergency Department on the above date and was hospitalized for further evaluation of their emergent condition. - New Patient This patient is new to me today: Yes Date on this admission: 08/07/18 - Critical Care Critical Care patient: Yes Total Critical Care Time (in minutes): 40 Critical Care Statement: The care of this patient involved high complexity decision making to prevent further life threatening deterioration of the patient 's condition and/or to evaluate & treat vital organ system(s) failure or risk of failure.
[2018-08-07] MEDS ORDERED: VASOPRESSIN 20 UNITS/ML VIAL IV ONE (00:11)
[2018-08-07] MEDS: VASOPRESSIN 50 UNITS in SODIUM CHLORIDE 97.5 ML IVPB SCH (00:15)
[2018-08-07 01:41] LABS: ANION GAP 15 MMOL/L (8-16); BLOOD UREA NITROGEN 61 mg/dL (7-18); CALCIUM 8.5 mg/dL (8.5-10.1); CHLORIDE 99 mmol/L (98-107); CO2 20 mmol/L (21-32); CREATININE 5.4 mg/dL (0.55-1.3); SODIUM 134 mmol/L (136-145)
[2018-08-07 01:45] LABS: GLUCOSE,RANDOM 376 mg/dL (74-106)
[2018-08-07] MEDS ORDERED: NOREPINEPHRINE BITARTRATE 4 MG/4 ML ML IV ONE ×3 (02:21→14:35)
[2018-08-07] MEDS ORDERED: HEPARIN NA (PORCINE) 5,000 UNITS/ML 1ML VIAL SQ SCH (06:00)
[2018-08-07] MEDS: INSULIN SLIDING SCALE (NOVOLOG) 1 VIAL SQ SCH ×4 (06:30→21:41)
[2018-08-07 06:39] LABS: ALLENS TEST POSITIVE; ARTERIAL BLD GAS O2 SATURATION 92.6 % (95-98); ARTERIAL BLOOD GAS BASE EXCESS -14.1 meq/l (-2-2); ARTERIAL BLOOD GAS PO2 68.2 mmHg (80-105)
[2018-08-07 06:40] LABS: ARTERIAL BLOOD GAS PCO2 55.5 mmHg (35-45); ARTERIAL BLOOD GAS pH 7.09 (7.35-7.45)
[2018-08-07] MEDS ORDERED: SODIUM BICARBONATE 8.4% 50 MEQ/50 ML DISP.SYRIN IV ONE (06:46)
[2018-08-07 06:50] LABS: BASO % 0.2 % (0-2.0); HEMATOCRIT 40.9 % (35.4-49); HEMOGLOBIN 12.4 GM/dL (11.7-16.9); LYMPH % 1.7 % (8-40); MCHC 30.3 g/dl (32.0-35.9); MEAN PLT VOLUME 9.8 fl (7.5-11.1); MONO % 6.3 % (3.8-10.2); NEUT % 91.8 % (42.8-82.8); PLATELET COUNT 287 K/MM3 (134-434); RBC 4.13 M/mm3 (4.00-5.60); RDW 17.3 % (11.9-15.9)
[2018-08-07 07:02] LABS: WHITE BLOOD COUNT 30.9 K/mm3 (4.0-10.0)
[2018-08-07 07:16] LABS: ALBUMIN 2.7 g/dl (3.4-5.0); ALK PHOS 180 U/L (45-117); ANION GAP 14 MMOL/L (8-16); BILIRUBIN,TOTAL 0.6 mg/dL (0.2-1); BLOOD UREA NITROGEN 60 mg/dL (7-18); CALCIUM 8.3 mg/dL (8.5-10.1); CHLORIDE 100 mmol/L (98-107); CO2 19 mmol/L (21-32); CREATININE 5.7 mg/dL (0.55-1.3); POTASSIUM 5.8 mmol/L (3.5-5.1); SGOT/AST 176 U/L (15-37); SGPT/ALT 93 U/L (13-61); SODIUM 132 mmol/L (136-145); TOT PROT 6.9 g/dl (6.4-8.2)
[2018-08-07 07:18] LABS: GLUCOSE,RANDOM 399 mg/dL (74-106)
[2018-08-07 07:19] LABS: PHOSPHOROUS > 9.0 mg/dL (2.5-4.9)
--- NOTE | 2018-08-07 07:37 | CON.NEP ---
Consult Consult Specialty:: nephrology Reason for Consultation:: esrd - History of Present Illness Chief Complaint: cardiac arrest History of Present Illness: 52yo M with h/o ESRD (M/W/F), dCHF, IDDM, pulmonary HTN, MJ, gout, and anemia of chronic disease who presented to the ED due to a witnessed cardiac arrest. Pt was receiving HD and about 1.5 hrs into his session he was witnessed to become unresponsive 2/2 to sudden cardiac arrest (~5:45pm). ACLS protocol was followed and upon arrival of EMS pt was intubated with a Kendrick Supraglottic tube and placed on a kelly compression device. Pt's original rhythm was noted to be PEA. Pt received 4 rounds of epi, 1 amp NaHCO3, 1 amp CaGluc in the field. Pt arrived at the ED shortly thereafter where CPR/ACLS protocol was continued. He received another 3 rounds of epi, 1 amp HCO3, and 1 amp CaGluc while noting rhythm changes to Wide Complex ventricular tachycardia. At this point pt was noted to have large amount secretions from his oropharynx with desaturation to 40's on pulse oximetry. Pt's was reintubated with size 7.0 ETT at the 22 jania resulting in increased saturations and notable ROSC at this time (total arrest time 50minutes). Pt had no return of neurological function and thus post-arrest Targeted Temperature Management was initiated. Pt was placed on Levophed due to refractory hypotension. He is unable to give a history. Remains on pressors. Had a large amount of defecation per nursing staff. Pupils are fixed but not maxiammly dialted. - History Source History Provided By: Medical Record Limitations to Obtaining History: Clinical Condition - Past Medical History [employer]IL[employer] WORKER: Yes: Peripheral Neuropathy Cardio/Vascular: Yes: CHF, Pulmonary Hypertension Pulmonary: Yes: O2 Dependent, Sleep Apnea Gastrointestinal: Yes: Constipation, GI Bleed Renal/: Yes: Renal Failure, Renal Inusuff, Hemodialysis Musculoskeletal: Yes: Chronic low back pain Rheumatology: Yes: Gout Endocrine: Yes: Diabetes Mellitus Dermatology: Yes: Other - Past Surgical History Past Surgical History: Yes: Hernia Repair - Alcohol/Substance Use Hx Alcohol Use: No History of Substance Use: reports: None - Smoking History Smoking history: Unknown if ever smoked Have you smoked in the past 12 months: No Aproximately how many cigarettes per day: 0 If you are a former smoker, when did you quit?: 1994 - Social History Usual Living Arrangement: With Significant Other ADL: Independent History of Recent Travel: No Home Medications - Allergies Allergies/Adverse Reactions: Allergies Allergy/AdvReac Type Severity Reaction Status Date / Time amoxicillin trihydrate Allergy Intermediate Rash Verified 08/06/18 19:55 [From Augmentin] ciprofloxacin [From Cipro] Allergy Intermediate Rash Verified 08/06/18 19:55 ciprofloxacin HCl Allergy Intermediate Rash Verified 08/06/18 19:55 [From Cipro] potassium clavulanate Allergy Intermediate Rash Verified 08/06/18 19:55 [From Augmentin] cyclosporine Allergy Verified 08/06/18 19:55 - Home Medications Home Medications: Ambulatory Orders Aspirin [ASA -] 81 mg PO DAILY 02/14/16 Atorvastatin Ca [Lipitor] 10 mg PO HS 02/14/16 Gabapentin 400 mg PO DAILY 02/14/16 Sevelamer Carbonate [Renvela] 3,200 mg PO TID 01/05/18 Folic Acid/Vit B Complex and C [Dialyvite Tablet] 1 each PO 08/06/18 Family Disease History - Family Disease History Family Disease History: Diabetes: Father (Parkinson's), Other: Father, Mother ( MS) Review of Systems Unable to obtain ROS, reason: intubated post arrest Nephrology Consult - Height Height: 5 ft 9 in - Weight Weight: 279 lb 5.211 oz - BMI Body Mass Index (BMI): 41.2 - Lab Results CBC,BMP: CBC, BMP 08/07/18 05:30 08/07/18 05:30 Anion Gap: Anion Gap Anion Gap 14 MMOL/L (8-16) 08/07/18 05:30 - Imaging Chest X-ray: Report Reviewed - Physical Examination Vital Signs: Vital Signs Temperature 92.3 F L 08/07/18 06:00 Pulse Rate 54 L 08/07/18 06:00 Respiratory Rate 18 08/07/18 06:57 Blood Pressure 125/68 08/07/18 06:00 O2 Sat by Pulse Oximetry (%) 100 08/07/18 01:08 Constitutional: Yes: Well Nourished, No Distress Eyes: Yes: Conjunctiva Clear, Other (pupils equal, dialted to 4 mm) HENT: Yes: Atraumatic, Normocephalic Neck: Yes: Supple, Trachea Midline Cardiovascular: Yes: Regular Rate and Rhythm Respiratory: Yes: Regular, Intubated Gastrointestinal: Yes: Normal Bowel Sounds, Soft Renal/: No: Bladder Distention Access for Hemodialysis: AV Fistula (has a needle still in it) Extremities: Yes: WNL Edema: No Neurological: Yes: Unresponsive Assessment/Plan IMPRESSION ESRD S/p cardiac arrest- remains on pressors Hyperkalemia cardiogenic shock metabolic acidosis and respiratory acidosis PLAN Can attempt redialysis to improve metabolic acidosis and hyperkalemia needs to increase minute ventilation cardiology eval CT of head once stable MV
[2018-08-07] MEDS ORDERED: SODIUM CHLORIDE 250 ML IV PRN (07:45)
[2018-08-07] MEDS: NOREPINEPHRINE BITARTRATE 4,000 MCG in DEXTROSE 5%-WATER - 496 ML IV SCH ×2 (08:00→21:30)
[2018-08-07] MEDS ORDERED: VANCOMYCIN HCL 1,250 MG in DEXTROSE 5%-WATER - 250 ML IVPB ONE (08:12)
[2018-08-07] MEDS ORDERED: INSULIN REGULAR HUMAN 100 UNITS/ML *VIAL IVPUSH ONE (08:17)
[2018-08-07] MEDS ORDERED: DEXTROSE 50%-WATER - 25 GM/50 ML VIAL IVPUSH ONE (08:18)
--- NOTE | 2018-08-07 08:25 | PN ---
Progress Note (short form) - Note Progress Note: ID CONSULT DICTATED IMP/RECCD 52 yo man esrd/hd, DM, admitted after witnessed arrest at HD, ROSC one hour large amount of vomit suctioned in airway now in ICU intubated on levophed and vasopressin cooling protocol s/p arrest suspected aspiration-sputum culture, f/u blood cultures, vancomycin 1 dose, clindamycin/cefepime for aspiration-adjust for esrd suspected cardiac event esrd/hd diabetes pen allergy- rash, has taken keflex in the past cipro allergy - rash overall prognosis grim d/w ICU staff Problem List - Problems (1) Cardiac arrest Code(s): I46.9 - CARDIAC ARREST, CAUSE UNSPECIFIED (2) Aspiration pneumonia Code(s): J69.0 - PNEUMONITIS DUE TO INHALATION OF FOOD AND VOMIT (3) ESRD on hemodialysis Code(s): N18.6 - END STAGE RENAL DISEASE; Z99.2 - DEPENDENCE ON RENAL DIALYSIS (4) Diabetes Code(s): E11.9 - TYPE 2 DIABETES MELLITUS WITHOUT COMPLICATIONS (5) Allergy to multiple antibiotics Code(s): Z88.1 - ALLERGY STATUS TO OTHER ANTIBIOTIC AGENTS STATUS
[2018-08-07] MEDS ORDERED: ALBUTEROL SO4 0.5 % INH SOLN 2.5 MG/0.5 ML VIAL.NEB. NEB ONE (08:45)
[2018-08-07] MEDS ORDERED: CEFEPIME HCL 1 GM VIAL (RESTRICTED TO ID) ONE (08:58)
[2018-08-07] MEDS ORDERED: DEXTROSE 5%-WATER 100 ML IVPB ONE (08:58)
--- NOTE | 2018-08-07 09:01 | CONS ---
DATE OF CONSULTATION: DATE OF DICTATION: 08/07/2018 INFECTIOUS DISEASE CONSULTATION REQUESTING PHYSICIAN: Hospitalist Service HISTORY OF PRESENT ILLNESS: This is 52-year-old man whom I know from prior admissions. He has a history of diabetes and renal failure. He is on dialysis. We had seen him in the past for a small scrotal sinus tract that he had had, and he had a chronic foot ulcer that was being managed by Podiatry. He had had multiple MRIs and no evidence of osteomyelitis. Apparently yesterday at dialysis he had a witnessed arrest while on dialysis. Between resuscitation at dialysis, EMS and in the ER, his was 1 hour. He was intubated and at the time of intubation he was noted to have a large amount of vomit in his airway. This morning he is in the ICU. He is on a cooling protocol. He is on Levophed and vasopressin. Chest x-ray revealed a right-sided infiltrate. ALLERGIES: HE HAS AN ALLERGY IN THE PAST TO AMOXICILLIN AND CIPRO, WHICH WERE BOTH RASH. Per prior records in the chart, he has taken Keflex before without any difficulty. PAST MEDICAL HISTORY: Notable for peripheral neuropathy, congestive heart failure, pulmonary hypertension, sleep apnea, constipation, renal failure, dialysis, anemia, chronic low back pain, gout, diabetes. He has had chronic foot infections for which he has been treated with antibiotics in the past. PAST SURGICAL HISTORY: He has had a hernia repair. He has a left AV fistula. MEDICATIONS: His medications at home include aspirin, Lipitor, gabapentin, Renvela, and Dialyvite vitamins. REVIEW OF SYSTEMS: Per the nursing staff, he has had multiple bowel movements since admission to the hospital. SOCIAL HISTORY: He lives at home with his family. 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 PHYSICAL EXAMINATION: Vital Signs: Temperature 92.3; he is on a cooling protocol. Pulse is 54, blood pressure 125/68, respiratory rate 14. He weighs 126 kg. HEENT: He is normocephalic. He is intubated. He has an OT tube with drainage. Pupils are fixed and not reactive. Neck: Supple. Lungs: Diminished breath sounds at the bases. Heart: Regular rate and rhythm. Abdomen: Soft, nontender. Extremities: Without edema. Skin: There is no evidence of any skin breakdown. DIAGNOSTIC STUDIES: His white count on admission was 23 last night and this morning was 30. Hemoglobin 12.4, platelets 287. INR is 1. BUN 60, creatinine 5.7, potassium 5.8, glucose 399, lactic acid 2, AST 176, ALT 93, alkaline phosphatase 180. Blood cultures are pending. Chest x-ray reveals a right-sided infiltrate. SUMMARY: This is a 52-year-old man admitted after a witnessed arrest at dialysis, status post prolonged resuscitation, now in the ICU intubated, on Levophed and vasopressin and cooling protocol. He is status post arrest with suspected aspiration. I suspect this is not an infectious event but a cardiac event. He has end-stage renal disease, on dialysis, with diabetes, PENICILLIN AND CIPRO ALLERGIES. I would suggest to get a sputum culture. Blood cultures have been obtained. We will treat him with vancomycin 1 dose. We will treat him with clindamycin and cefepime for aspiration, adjusted for his end-stage renal disease. Overall prognosis is grim. The case was discussed with the ICU staff. JE ALMAGUER M.D. [id number]
[2018-08-07] MEDS: CLINDAMYCIN 600MG PREMIX IVPB 600 MG/50 ML BAG IVPB SCH ×2 (09:05→18:19)
[2018-08-07] MEDS: CEFEPIME 1 GM in DEXTROSE 5%-WATER 100 ML IVPB SCH (09:05)
[2018-08-07] MEDS ORDERED: DEXTROSE 50%-WATER - 25 GM/50 ML VIAL ONE (09:22)
[2018-08-07 09:32] LABS: ARTERIAL BLD GAS O2 SATURATION 90.1 % (95-98); ARTERIAL BLOOD GAS BASE EXCESS -13.2 meq/l (-2-2); ARTERIAL BLOOD GAS PCO2 58.4 mmHg (35-45); ARTERIAL BLOOD GAS PO2 74.3 mmHg (80-105)
--- NOTE | 2018-08-07 09:39 | PN ---
Physical Exam: SUBJECTIVE: Patient seen and examined. Pt admitted s/p cardiac arrest during dialysis, with likely aspiration, and achievemnt of ROSC after about 1hr from the field into the ED. Pt started on TTM at about 10pm. OBJECTIVE: Vital Signs Period Temp Pulse Resp BP Sys/[place] Pulse Ox Last 24 Hr 92.3 F-97.7 F 0-122 14-18 00-125/00-71 97-100 Vital Signs Temp 97.3 F L 08/07/18 11:25 Pulse 64 08/07/18 11:30 Resp 22 H 08/07/18 11:30 BP 118/89 08/07/18 11:30 Pulse Ox 100 08/07/18 01:08 Intake & Output 08/06/18 08/07/18 08/07/18 23:59 11:59 23:59 Weight 118 kg 126.7 kg Other: Height 1.75 m 1.75 m Body Mass Index (BMI) 38.4 41.2 Weight Measurement Method Built in [facility] GENERAL: The patient is Intubated off sedation, on pressors- vasopressin and levophed- EYES: Pupils b/l fixed and dilated, absent gag reflex ENT: ETT-18>>22/500/100/5/5 LUNGS: Mechanical ventilation HEART: Regular rate and rhythm, S1, S2 ABDOMEN: Distended, , upper tympanitic, lower abdomen dull, absent bowel sounds EXTREMITIES: 2+ pulses, warm, well-perfused, no edema. NEUROLOGICAL:Not responsive off sedation CBC, BMP 08/07/18 10:15 Laboratory Results - last 24 hr 08/06/18 08/06/18 08/06/18 19:10 19:10 19:10 WBC 23.0 H RBC 3.66 L Hgb 11.3 L Hct 37.9 MCV 103.6 H MCH 30.9 MCHC 29.8 L RDW 17.6 H Plt Count 218 MPV 10.8 Absolute Neuts (auto) 15.3 H Neutrophils % 66.4 Neutrophils % (Manual) 51.0 D Band Neutrophils % 10.0 Lymphocytes % 26.9 D Lymphocytes % (Manual) 25.0 Monocytes % 5.2 Monocytes % (Manual) 3 L D Eosinophils % 0.7 Eosinophils % (Manual) 1.0 D Basophils % 0.8 Basophils % (Manual) 0.0 Myelocytes % (Man) 5 H Nucleated RBC % 4 H Metamyelocytes 3 H Platelet Estimate Adequate Macrocytosis 1+ PT with INR 13.00 INR 1.10 H PTT (Actin FS) 27.5 Anticoagulation Therapy Puncture Site Patient Temperature ABG pH ABG pCO2 at Pt Temp ABG pO2 at Pt Temp ABG HCO3 ABG O2 Sat (Measured) ABG O2 Content ABG Base Excess Get Test VBG pH 6.85 L* POC VBG pCO2 98.5 H* POC VBG pO2 35.8 VBG HCO3 16.3 L VBG O2 Sat (Marzena) 30.4 L VBG Base Excess -19.7 L Carboxyhemoglobin Methemoglobin O2 Delivery Device Oxygen Flow Rate Vent Mode Vent Rate Mechanical Rate PEEP Pressure Support Vent Sodium Potassium Chloride Carbon Dioxide Anion Gap BUN Creatinine Creat Clearance w eGFR POC Glucometer Random Glucose Lactic Acid Calcium Phosphorus Magnesium Total Bilirubin AST ALT Alkaline Phosphatase Troponin I Total Protein Albumin Blood Type Antibody Screen 08/06/18 08/06/18 08/06/18 19:10 19:10 19:10 WBC RBC Hgb Hct MCV MCH MCHC RDW Plt Count MPV Absolute Neuts (auto) Neutrophils % Neutrophils % (Manual) Band Neutrophils % Lymphocytes % Lymphocytes % (Manual) Monocytes % Monocytes % (Manual) Eosinophils % Eosinophils % (Manual) Basophils % Basophils % (Manual) Myelocytes % (Man) Nucleated RBC % Metamyelocytes Platelet Estimate Macrocytosis PT with INR INR PTT (Actin FS) Anticoagulation Therapy Puncture Site Patient Temperature ABG pH ABG pCO2 at Pt Temp ABG pO2 at Pt Temp ABG HCO3 ABG O2 Sat (Measured) ABG O2 Content ABG Base Excess Get Test VBG pH POC VBG pCO2 POC VBG pO2 VBG HCO3 VBG O2 Sat (Marzena) VBG Base Excess Carboxyhemoglobin Methemoglobin O2 Delivery Device Oxygen Flow Rate Vent Mode Vent Rate Mechanical Rate PEEP Pressure Support Vent Sodium Cancelled Potassium Cancelled Chloride Cancelled Carbon Dioxide Cancelled Anion Gap Cancelled BUN Cancelled Creatinine Cancelled Creat Clearance w eGFR Cancelled POC Glucometer Random Glucose Cancelled Lactic Acid 12.2 H* Calcium Cancelled Phosphorus Magnesium Total Bilirubin Cancelled AST Cancelled ALT Cancelled Alkaline Phosphatase Cancelled Troponin I < 0.02 Total Protein Cancelled Albumin Cancelled Blood Type Antibody Screen 08/06/18 08/06/18 08/06/18 19:10 19:10 20:30 WBC RBC Hgb Hct MCV MCH MCHC RDW Plt Count MPV Absolute Neuts (auto) Neutrophils % Neutrophils % (Manual) Band Neutrophils % Lymphocytes % Lymphocytes % (Manual) Monocytes % Monocytes % (Manual) Eosinophils % Eosinophils % (Manual) Basophils % Basophils % (Manual) Myelocytes % (Man) Nucleated RBC % Metamyelocytes Platelet Estimate Macrocytosis PT with INR INR PTT (Actin FS) Anticoagulation Therapy Puncture Site Patient Temperature ABG pH ABG pCO2 at Pt Temp ABG pO2 at Pt Temp ABG HCO3 ABG O2 Sat (Measured) ABG O2 Content ABG Base Excess Get Test VBG pH POC VBG pCO2 POC VBG pO2 VBG HCO3 VBG O2 Sat (Marzena) VBG Base Excess Carboxyhemoglobin Methemoglobin O2 Delivery Device Oxygen Flow Rate Vent Mode Vent Rate Mechanical Rate PEEP Pressure Support Vent Sodium 136 Potassium 6.5 H* Chloride 100 Carbon Dioxide 16 L Anion Gap 20 H BUN 56 H Creatinine 5.5 H Creat Clearance w eGFR 10.97 POC Glucometer 398 Random Glucose 424 H* Lactic Acid Calcium 9.0 Phosphorus Magnesium Total Bilirubin 0.3 AST 120 H ALT 87 H Alkaline Phosphatase 188 H Troponin I Total Protein 6.6 Albumin 2.7 L Blood Type A POSITIVE Antibody Screen Negative 08/06/18 08/07/18 08/07/18 22:20 00:38 00:38 WBC RBC Hgb Hct MCV MCH MCHC RDW Plt Count MPV Absolute Neuts (auto) Neutrophils % Neutrophils % (Manual) Band Neutrophils % Lymphocytes % Lymphocytes % (Manual) Monocytes % Monocytes % (Manual) Eosinophils % Eosinophils % (Manual) Basophils % Basophils % (Manual) Myelocytes % (Man) Nucleated RBC % Metamyelocytes Platelet Estimate Macrocytosis PT with INR INR PTT (Actin FS) Anticoagulation Therapy No Result Required. Puncture Site Right radial Patient Temperature 96 ABG pH 6.96 L* ABG pCO2 at Pt Temp 75.1 H* ABG pO2 at Pt Temp 126 H ABG HCO3 16.1 L ABG O2 Sat (Measured) 95.7 ABG O2 Content 16.6 ABG Base Excess -17.2 L Get Test Positive VBG pH POC VBG pCO2 POC VBG pO2 VBG HCO3 VBG O2 Sat (Marzena) VBG Base Excess Carboxyhemoglobin 0.7 Methemoglobin 0.6 O2 Delivery Device Vent Oxygen Flow Rate 100% Vent Mode No Result Required. Vent Rate 14 Mechanical Rate No Result Required. PEEP 5.0 Pressure Support Vent No Result Required. Sodium 134 L Potassium 6.0 H Chloride 99 Carbon Dioxide 20 L Anion Gap 15 BUN 61 H Creatinine 5.4 H Creat Clearance w eGFR 11.21 POC Glucometer Random Glucose 376 H* Lactic Acid 4.8 H* Calcium 8.5 Phosphorus Magnesium Total Bilirubin AST ALT Alkaline Phosphatase Troponin I 0.18 H Total Protein Albumin Blood Type Antibody Screen 08/07/18 08/07/18 08/07/18 05:30 05:30 05:30 WBC 30.9 H* RBC 4.13 Hgb 12.4 Hct 40.9 MCV 99.0 H MCH 30.0 MCHC 30.3 L RDW 17.3 H Plt Count 287 D MPV 9.8 Absolute Neuts (auto) 28.4 H Neutrophils % 91.8 H D Neutrophils % (Manual) Band Neutrophils % Lymphocytes % 1.7 L D Lymphocytes % (Manual) Monocytes % 6.3 Monocytes % (Manual) Eosinophils % 0.0 D Eosinophils % (Manual) Basophils % 0.2 Basophils % (Manual) Myelocytes % (Man) Nucleated RBC % 1 H Metamyelocytes Platelet Estimate Macrocytosis PT with INR INR PTT (Actin FS) Anticoagulation Therapy Puncture Site Patient Temperature ABG pH ABG pCO2 at Pt Temp ABG pO2 at Pt Temp ABG HCO3 ABG O2 Sat (Measured) ABG O2 Content ABG Base Excess Get Test VBG pH POC VBG pCO2 POC VBG pO2 VBG HCO3 VBG O2 Sat (Marzena) VBG Base Excess Carboxyhemoglobin Methemoglobin O2 Delivery Device Oxygen Flow Rate Vent Mode Vent Rate Mechanical Rate PEEP Pressure Support Vent Sodium 132 L Potassium 5.8 H Chloride 100 Carbon Dioxide 19 L Anion Gap 14 BUN 60 H Creatinine 5.7 H Creat Clearance w eGFR 10.53 POC Glucometer Random Glucose 399 H* Lactic Acid Calcium 8.3 L Phosphorus > 9.0 H* Magnesium 3.0 H Total Bilirubin 0.6 AST 176 H ALT 93 H Alkaline Phosphatase 180 H Troponin I 0.48 H Total Protein 6.9 Albumin 2.7 L Blood Type Antibody Screen 08/07/18 08/07/18 08/07/18 05:30 06:12 06:30 WBC RBC Hgb Hct MCV MCH MCHC RDW Plt Count MPV Absolute Neuts (auto) Neutrophils % Neutrophils % (Manual) Band Neutrophils % Lymphocytes % Lymphocytes % (Manual) Monocytes % Monocytes % (Manual) Eosinophils % Eosinophils % (Manual) Basophils % Basophils % (Manual) Myelocytes % (Man) Nucleated RBC % Metamyelocytes Platelet Estimate Macrocytosis PT with INR INR PTT (Actin FS) Anticoagulation Therapy Puncture Site Right radial Patient Temperature 92.0 ABG pH 7.09 L* ABG pCO2 at Pt Temp 55.5 H ABG pO2 at Pt Temp 68.2 L ABG HCO3 17.4 L ABG O2 Sat (Measured) 92.6 L ABG O2 Content 16.9 ABG Base Excess -14.1 L Get Test Positive VBG pH POC VBG pCO2 POC VBG pO2 VBG HCO3 VBG O2 Sat (Marzena) VBG Base Excess Carboxyhemoglobin Methemoglobin O2 Delivery Device Mech vent Oxygen Flow Rate 100% Vent Mode A/c Vent Rate 14 Mechanical Rate Yes PEEP 5.0 Pressure Support Vent 500 Sodium Potassium Chloride Carbon Dioxide Anion Gap BUN Creatinine Creat Clearance w eGFR POC Glucometer 402 Random Glucose Lactic Acid 2.0 Calcium Phosphorus Magnesium Total Bilirubin AST ALT Alkaline Phosphatase Troponin I Total Protein Albumin Blood Type Antibody Screen 08/07/18 08:51 WBC RBC Hgb Hct MCV MCH MCHC RDW Plt Count MPV Absolute Neuts (auto) Neutrophils % Neutrophils % (Manual) Band Neutrophils % Lymphocytes % Lymphocytes % (Manual) Monocytes % Monocytes % (Manual) Eosinophils % Eosinophils % (Manual) Basophils % Basophils % (Manual) Myelocytes % (Man) Nucleated RBC % Metamyelocytes Platelet Estimate Macrocytosis PT with INR INR PTT (Actin FS) Anticoagulation Therapy Puncture Site Patient Temperature ABG pH ABG pCO2 at Pt Temp ABG pO2 at Pt Temp ABG HCO3 ABG O2 Sat (Measured) ABG O2 Content ABG Base Excess Get Test VBG pH POC VBG pCO2 POC VBG pO2 VBG HCO3 VBG O2 Sat (Marzena) VBG Base Excess Carboxyhemoglobin Methemoglobin O2 Delivery Device Oxygen Flow Rate Vent Mode Vent Rate Mechanical Rate PEEP Pressure Support Vent Sodium Potassium Chloride Carbon Dioxide Anion Gap BUN Creatinine Creat Clearance w eGFR POC Glucometer 341 Random Glucose Lactic Acid Calcium Phosphorus Magnesium Total Bilirubin AST ALT Alkaline Phosphatase Troponin I Total Protein Albumin Blood Type Antibody Screen Active Medications Generic Name Dose Route Start Last Admin Trade Name Freq PRN Reason Stop Dose Admin Chlorhexidine Gluconate 1 applic 08/06/18 22:00 08/06/18 23:36 Hibiclens For Decolonization - TP 1 applic HS ELEONORA Administration Norepinephrine Bitartrate 4, 500 mls @ 37.5 mls/hr 08/06/18 19:30 08/06/18 20 :00 000 mcg/ Dextrose IV 8 mcg/min TITR ELEONORA 60 mls/hr Titration Protocol 5 MCG/MIN Vasopressin 50 units/ Sodium 100 mls @ 4 mls/hr 08/07/18 00:15 08/07/18 00:15 Chloride IVPB 2 units/hr TITR ELEONORA 4 mls/hr Administration Protocol 2 UNITS/HR Sodium Chloride 250 mls @ 3,000 mls/hr 08/07/18 07:45 Normal Saline - IV 08/08/18 07:45 PRN PRN Hypotension during Dialysis Vancomycin HCl 1,250 mg/ 250 mls @ 250 mls/2 hr 08/07/18 08:12 Dextrose IVPB 08/07/18 10:11 ONCE ONE Protocol Clindamycin Phosphate 600 mg in 50 mls @ 100 mls/hr 08/07/18 10:00 08/07/18 09:05 Cleocin 600 Mg Premix Ivpb - IVPB 100 mls/hr Q8H-IV ELEONORA Administration Protocol Cefepime HCl 1 gm/ Dextrose 100 mls @ 200 mls/hr 08/07/18 10:00 08/07/18 09: 05 IVPB 200 mls/hr DAILY ELEONORA Administration Insulin Aspart 1 vial 08/07/18 07:00 08/07/18 06:30 Novolog Vial Sliding Scale - SQ 14 unit ACHS ELEONORA Administration Protocol Mupirocin 1 applic 08/06/18 22:00 08/06/18 23:56 Bactroban Ointment (For Decolonization) - NS 08/11/18 21:59 Not Given BID ELEONORA Pantoprazole Sodium 40 mg 08/07/18 10:00 Protonix Iv IVPUSH DAILY [facility] CONSULTS: Cardio- Dr. Duarte IMAGING: * EKG (18:57:54): Wide QRS tachycardia, RBBB, HR 129, QTc 577 * EKG (20:51:20): sinus rhythm, RBBB, HR 67, QTc 481 ms ASSESSMENT/PLAN: 52M w/ pmhx of IDDM, diastolic CHF, pulmonary HTN, renal failure (on HD MWF), sleep apnea, gout presented to the ED after a cardiac arrest during dialysis CV #Post-cardiac arrest and resuscitation; likely 2/2 HD-induced hypotension, r/o infection (likely aspiration PNA) -Pt achieved ROSC after ~60 min after multiple cycles of epi -Cont Levophed GTT wean off Vasopressin GTT maintain MAP >65 -Currently on hypothermia protocol; maintain at 33 degrees C [id number] (Stop at 10pm) -Trops neg x1, will repeat trops; EKG noted above -Cardio consulted #Lactic Acidosis -Initial lactate 12.2; resolved on repeat RESP #Aspiration PNA likely -Intubated, off sedation, with fentanyl push for pain as needed -AB per ID - Respiratory acidosis noted on repeat ABGs- RR increased from 18 to 22 -ABG repeat RENAL #CKD on HD MWF -likely 2/2 uncontrolled IDDM -nephro consulted -avoid nephrotoxins #Hyperkalemia; K+ 6.5 on presentation -Received calcium gluconate, insulin, albuterol -repeat CMP improving K -Albuterol nebs -Per nephro- for dialysis NEURO -Not currently on sedation -Neurochecks - Fentanyl pushes for pain GI #Transaminitis -may be due to hepatic injury as a result of poor perfusion -repeat CMP in AM -Protonix Iv ENDO #IDDM -hold home meds -BGM/ISS ACHS ID -Leukocytosis -BCx, UCx, U/A pending; r/o infection -Dr Jc (pt with multiplke allergies) -Cefepime, clinda, vanco Prophylaxis -SCDs/SQH -Protonix 4 mg IVP QD FEN -no IVf -replete lytes PRN (K+) -NPO Dispo - ICU -full code- Spoke with patient's sister - Princess Miguel(Pharmacist)- via Cell phone of since sister speaks better [place] than . At this time, patient is full code. Updated sister as to clinical state and prognosis being poor. No formal HCP, no legal documents in chart. Per sister will need to give family time to discuss. Visit type - Emergency Visit Emergency Visit: Yes ED Registration Date: 08/06/18 Care time: The patient presented to the Emergency Department on the above date and was hospitalized for further evaluation of their emergent condition. - New Patient This patient is new to me today: Yes Date on this admission: 08/07/18 - Critical Care Critical Care patient: Yes Total Critical Care Time (in minutes): 40 Critical Care Statement: The care of this patient involved high complexity decision making to prevent further life threatening deterioration of the patient 's condition and/or to evaluate & treat vital organ system(s) failure or risk of failure.
[2018-08-07 09:50] LABS: ALLENS TEST POSITIVE
[2018-08-07] MEDS: PANTOPRAZOLE SODIUM 40 MG VIAL IVPUSH SCH (10:00)
[2018-08-07] MEDS ORDERED: CEFEPIME HCL/D5W 1 GM/50 ML BAG IVPB SCH (10:00)
--- NOTE | 2018-08-07 10:11 | PN ---
Teaching Attending Note Name of Resident: Alison Handy ATTENDING PHYSICIAN STATEMENT I saw and evaluated the patient. I reviewed the resident's note and discussed the case with the resident. I agree with the resident's findings and plan as documented. SUBJECTIVE: Patient seen and examined in the ICU. Events noted. Prolonged ROSC of over an hour. Intubated and minimally responsive on AC Mode of vent. Pupils are fixed and dilated. 20 mcq NE and 4 units Vasopressin for hemodynamic support. Intake & Output 08/04/18 08/05/18 08/06/18 08/07/18 23:59 23:59 23:59 23:59 Weight 260 lb 2.327 oz 279 lb 5.211 oz Last Vital Signs Temp Pulse Resp BP Pulse Ox 92.3 F L 57 L 18 100/62 100 08/07/18 06:00 08/07/18 08:00 08/07/18 08:45 08/07/18 08:00 08/07/18 01:08 Active Medications Chlorhexidine Gluconate (Hibiclens For Decolonization -) 1 applic TP HS ELEONORA Last Admin: 08/06/18 23:36 Dose: 1 applic Norepinephrine Bitartrate 4, (000 mcg/ Dextrose) 500 mls @ 37.5 mls/hr IV TITR ELEONORA; Protocol Last Admin: 08/07/18 08:00 Dose: 15 mcg/min, 112.5 mls/hr Vasopressin 50 units/ Sodium (Chloride) 100 mls @ 4 mls/hr IVPB TITR ELEONORA; Protocol Last Admin: 08/07/18 00:15 Dose: 2 units/hr, 4 mls/hr Sodium Chloride (Normal Saline -) 250 mls @ 3,000 mls/hr IV PRN PRN PRN Reason: Hypotension during Dialysis Stop: 08/08/18 07:45 Vancomycin HCl 1,250 mg/ (Dextrose) 250 mls @ 250 mls/2 hr IVPB ONCE ONE; Protocol Stop: 08/07/18 10:11 Clindamycin Phosphate (Cleocin 600 Mg Premix Ivpb -) 600 mg in 50 mls @ 100 mls /hr IVPB Q8H-IV ELEONORA; Protocol Last Admin: 08/07/18 09:05 Dose: 100 mls/hr Cefepime HCl 1 gm/ Dextrose 100 mls @ 200 mls/hr IVPB DAILY ELEONORA Last Admin: 08/07/18 09:05 Dose: 200 mls/hr Insulin Aspart (Novolog Vial Sliding Scale -) 1 vial SQ ACHS [facility]; Protocol Last Admin: 08/07/18 06:30 Dose: 14 unit Mupirocin (Bactroban Ointment (For Decolonization) -) 1 applic NS BID [facility] Stop: 08/11/18 21:59 Last Admin: 08/06/18 23:56 Dose: Not Given Pantoprazole Sodium (Protonix Iv) 40 mg IVPUSH DAILY [facility] GENERAL: Intubated. Unresponsive to sternal rub. HEENT: AT/NC. Pupils fixed b/l. ET tube in place. NG tube in place. NECK: RIJ line in place. LUNGS: scattered rhonchi b/l. HEART: RRR. S1, S2. No murmurs noted. ABDOMEN: Obese. distended, hypoactive BS MUSCULOSKELETAL: WNL EXTREMITIES: 2+ b/l dorsalis pedis pulses. NEUROLOGICAL: Obtunded,absent pupillary or gag reflex SKIN: Multiple superficial lesions noted on midsternum. Laboratory Results - last 24 hr 08/06/18 08/06/18 08/06/18 19:10 19:10 19:10 WBC 23.0 H RBC 3.66 L Hgb 11.3 L Hct 37.9 MCV 103.6 H MCH 30.9 MCHC 29.8 L RDW 17.6 H Plt Count 218 MPV 10.8 Absolute Neuts (auto) 15.3 H Neutrophils % 66.4 Neutrophils % (Manual) 51.0 D Band Neutrophils % 10.0 Lymphocytes % 26.9 D Lymphocytes % (Manual) 25.0 Monocytes % 5.2 Monocytes % (Manual) 3 L D Eosinophils % 0.7 Eosinophils % (Manual) 1.0 D Basophils % 0.8 Basophils % (Manual) 0.0 Myelocytes % (Man) 5 H Nucleated RBC % 4 H Metamyelocytes 3 H Platelet Estimate Adequate Macrocytosis 1+ PT with INR 13.00 INR 1.10 H PTT (Actin FS) 27.5 Anticoagulation Therapy Puncture Site Patient Temperature ABG pH ABG pCO2 at Pt Temp ABG pO2 at Pt Temp ABG HCO3 ABG O2 Sat (Measured) ABG O2 Content ABG Base Excess Get Test VBG pH 6.85 L* POC VBG pCO2 98.5 H* POC VBG pO2 35.8 VBG HCO3 16.3 L VBG O2 Sat (Marzena) 30.4 L VBG Base Excess -19.7 L Carboxyhemoglobin Methemoglobin O2 Delivery Device Oxygen Flow Rate Vent Mode Vent Rate Mechanical Rate PEEP Pressure Support Vent Sodium Potassium Chloride Carbon Dioxide Anion Gap BUN Creatinine Creat Clearance w eGFR POC Glucometer Random Glucose Lactic Acid Calcium Phosphorus Magnesium Total Bilirubin AST ALT Alkaline Phosphatase Troponin I Total Protein Albumin Blood Type Antibody Screen 08/06/18 08/06/18 08/06/18 19:10 19:10 19:10 WBC RBC Hgb Hct MCV MCH MCHC RDW Plt Count MPV Absolute Neuts (auto) Neutrophils % Neutrophils % (Manual) Band Neutrophils % Lymphocytes % Lymphocytes % (Manual) Monocytes % Monocytes % (Manual) Eosinophils % Eosinophils % (Manual) Basophils % Basophils % (Manual) Myelocytes % (Man) Nucleated RBC % Metamyelocytes Platelet Estimate Macrocytosis PT with INR INR PTT (Actin FS) Anticoagulation Therapy Puncture Site Patient Temperature ABG pH ABG pCO2 at Pt Temp ABG pO2 at Pt Temp ABG HCO3 ABG O2 Sat (Measured) ABG O2 Content ABG Base Excess Get Test VBG pH POC VBG pCO2 POC VBG pO2 VBG HCO3 VBG O2 Sat (Marzena) VBG Base Excess Carboxyhemoglobin Methemoglobin O2 Delivery Device Oxygen Flow Rate Vent Mode Vent Rate Mechanical Rate PEEP Pressure Support Vent Sodium Cancelled Potassium Cancelled Chloride Cancelled Carbon Dioxide Cancelled Anion Gap Cancelled BUN Cancelled Creatinine Cancelled Creat Clearance w eGFR Cancelled POC Glucometer Random Glucose Cancelled Lactic Acid 12.2 H* Calcium Cancelled Phosphorus Magnesium Total Bilirubin Cancelled AST Cancelled ALT Cancelled Alkaline Phosphatase Cancelled Troponin I < 0.02 Total Protein Cancelled Albumin Cancelled Blood Type Antibody Screen 08/06/18 08/06/18 08/06/18 19:10 19:10 20:30 WBC RBC Hgb Hct MCV MCH MCHC RDW Plt Count MPV Absolute Neuts (auto) Neutrophils % Neutrophils % (Manual) Band Neutrophils % Lymphocytes % Lymphocytes % (Manual) Monocytes % Monocytes % (Manual) Eosinophils % Eosinophils % (Manual) Basophils % Basophils % (Manual) Myelocytes % (Man) Nucleated RBC % Metamyelocytes Platelet Estimate Macrocytosis PT with INR INR PTT (Actin FS) Anticoagulation Therapy Puncture Site Patient Temperature ABG pH ABG pCO2 at Pt Temp ABG pO2 at Pt Temp ABG HCO3 ABG O2 Sat (Measured) ABG O2 Content ABG Base Excess Get Test VBG pH POC VBG pCO2 POC VBG pO2 VBG HCO3 VBG O2 Sat (Marzena) VBG Base Excess Carboxyhemoglobin Methemoglobin O2 Delivery Device Oxygen Flow Rate Vent Mode Vent Rate Mechanical Rate PEEP Pressure Support Vent Sodium 136 Potassium 6.5 H* Chloride 100 Carbon Dioxide 16 L Anion Gap 20 H BUN 56 H Creatinine 5.5 H Creat Clearance w eGFR 10.97 POC Glucometer 398 Random Glucose 424 H* Lactic Acid Calcium 9.0 Phosphorus Magnesium Total Bilirubin 0.3 AST 120 H ALT 87 H Alkaline Phosphatase 188 H Troponin I Total Protein 6.6 Albumin 2.7 L Blood Type A POSITIVE Antibody Screen Negative 08/06/18 08/07/18 08/07/18 22:20 00:38 00:38 WBC RBC Hgb Hct MCV MCH MCHC RDW Plt Count MPV Absolute Neuts (auto) Neutrophils % Neutrophils % (Manual) Band Neutrophils % Lymphocytes % Lymphocytes % (Manual) Monocytes % Monocytes % (Manual) Eosinophils % Eosinophils % (Manual) Basophils % Basophils % (Manual) Myelocytes % (Man) Nucleated RBC % Metamyelocytes Platelet Estimate Macrocytosis PT with INR INR PTT (Actin FS) Anticoagulation Therapy No Result Required. Puncture Site Right radial Patient Temperature 96 ABG pH 6.96 L* ABG pCO2 at Pt Temp 75.1 H* ABG pO2 at Pt Temp 126 H ABG HCO3 16.1 L ABG O2 Sat (Measured) 95.7 ABG O2 Content 16.6 ABG Base Excess -17.2 L Get Test Positive VBG pH POC VBG pCO2 POC VBG pO2 VBG HCO3 VBG O2 Sat (Marzena) VBG Base Excess Carboxyhemoglobin 0.7 Methemoglobin 0.6 O2 Delivery Device Vent Oxygen Flow Rate 100% Vent Mode No Result Required. Vent Rate 14 Mechanical Rate No Result Required. PEEP 5.0 Pressure Support Vent No Result Required. Sodium 134 L Potassium 6.0 H Chloride 99 Carbon Dioxide 20 L Anion Gap 15 BUN 61 H Creatinine 5.4 H Creat Clearance w eGFR 11.21 POC Glucometer Random Glucose 376 H* Lactic Acid 4.8 H* Calcium 8.5 Phosphorus Magnesium Total Bilirubin AST ALT Alkaline Phosphatase Troponin I 0.18 H Total Protein Albumin Blood Type Antibody Screen 08/07/18 08/07/18 08/07/18 05:30 05:30 05:30 WBC 30.9 H* RBC 4.13 Hgb 12.4 Hct 40.9 MCV 99.0 H MCH 30.0 MCHC 30.3 L RDW 17.3 H Plt Count 287 D MPV 9.8 Absolute Neuts (auto) 28.4 H Neutrophils % 91.8 H D Neutrophils % (Manual) Band Neutrophils % Lymphocytes % 1.7 L D Lymphocytes % (Manual) Monocytes % 6.3 Monocytes % (Manual) Eosinophils % 0.0 D Eosinophils % (Manual) Basophils % 0.2 Basophils % (Manual) Myelocytes % (Man) Nucleated RBC % 1 H Metamyelocytes Platelet Estimate Macrocytosis PT with INR INR PTT (Actin FS) Anticoagulation Therapy Puncture Site Patient Temperature ABG pH ABG pCO2 at Pt Temp ABG pO2 at Pt Temp ABG HCO3 ABG O2 Sat (Measured) ABG O2 Content ABG Base Excess Get Test VBG pH POC VBG pCO2 POC VBG pO2 VBG HCO3 VBG O2 Sat (Marzena) VBG Base Excess Carboxyhemoglobin Methemoglobin O2 Delivery Device Oxygen Flow Rate Vent Mode Vent Rate Mechanical Rate PEEP Pressure Support Vent Sodium 132 L Potassium 5.8 H Chloride 100 Carbon Dioxide 19 L Anion Gap 14 BUN 60 H Creatinine 5.7 H Creat Clearance w eGFR 10.53 POC Glucometer Random Glucose 399 H* Lactic Acid Calcium 8.3 L Phosphorus > 9.0 H* Magnesium 3.0 H Total Bilirubin 0.6 AST 176 H ALT 93 H Alkaline Phosphatase 180 H Troponin I 0.48 H Total Protein 6.9 Albumin 2.7 L Blood Type Antibody Screen 08/07/18 08/07/18 08/07/18 05:30 06:12 06:30 WBC RBC Hgb Hct MCV MCH MCHC RDW Plt Count MPV Absolute Neuts (auto) Neutrophils % Neutrophils % (Manual) Band Neutrophils % Lymphocytes % Lymphocytes % (Manual) Monocytes % Monocytes % (Manual) Eosinophils % Eosinophils % (Manual) Basophils % Basophils % (Manual) Myelocytes % (Man) Nucleated RBC % Metamyelocytes Platelet Estimate Macrocytosis PT with INR INR PTT (Actin FS) Anticoagulation Therapy Puncture Site Right radial Patient Temperature 92.0 ABG pH 7.09 L* ABG pCO2 at Pt Temp 55.5 H ABG pO2 at Pt Temp 68.2 L ABG HCO3 17.4 L ABG O2 Sat (Measured) 92.6 L ABG O2 Content 16.9 ABG Base Excess -14.1 L Get Test Positive VBG pH POC VBG pCO2 POC VBG pO2 VBG HCO3 VBG O2 Sat (Marzena) VBG Base Excess Carboxyhemoglobin Methemoglobin O2 Delivery Device Mec vent Oxygen Flow Rate 100% Vent Mode A/c Vent Rate 14 Mechanical Rate Yes PEEP 5.0 Pressure Support Vent 500 Sodium Potassium Chloride Carbon Dioxide Anion Gap BUN Creatinine Creat Clearance w eGFR POC Glucometer 402 Random Glucose Lactic Acid 2.0 Calcium Phosphorus Magnesium Total Bilirubin AST ALT Alkaline Phosphatase Troponin I Total Protein Albumin Blood Type Antibody Screen 08/07/18 08/07/18 08:51 09:15 WBC RBC Hgb Hct MCV MCH MCHC RDW Plt Count MPV Absolute Neuts (auto) Neutrophils % Neutrophils % (Manual) Band Neutrophils % Lymphocytes % Lymphocytes % (Manual) Monocytes % Monocytes % (Manual) Eosinophils % Eosinophils % (Manual) Basophils % Basophils % (Manual) Myelocytes % (Man) Nucleated RBC % Metamyelocytes Platelet Estimate Macrocytosis PT with INR INR PTT (Actin FS) Anticoagulation Therapy Puncture Site Right radial Patient Temperature ABG pH 7.10 L* ABG pCO2 at Pt Temp 58.4 H ABG pO2 at Pt Temp 74.3 L ABG HCO3 17.2 L ABG O2 Sat (Measured) 90.1 L ABG O2 Content 17.8 ABG Base Excess -13.2 L Get Test Positive VBG pH POC VBG pCO2 POC VBG pO2 VBG HCO3 VBG O2 Sat (Marzena) VBG Base Excess Carboxyhemoglobin Methemoglobin O2 Delivery Device [facility] vent Oxygen Flow Rate 80% Vent Mode A/c Vent Rate 18 Mechanical Rate Yes PEEP 5.0 Pressure Support Vent 500 Sodium Potassium Chloride Carbon Dioxide Anion Gap BUN Creatinine Creat Clearance w eGFR POC Glucometer 341 Random Glucose Lactic Acid Calcium Phosphorus Magnesium Total Bilirubin AST ALT Alkaline Phosphatase Troponin I Total Protein Albumin Blood Type Antibody Screen ASSESSMENT/PLAN: Prolonged CP arrest with Severe Anoxic Brain injury: likely progressing to brain IDDM Diastolic CHF Pulmonary HTN ESRD on HD Obstructive Sleep Apnea Gout Suspected Aspiration Pneumonitis Multifactorial Shock Lactic Acidosis TTM attained at 10PM continue until 10PM tonight and then passive rewarm ABX per ID Pressors to maintain MAP > 65 HD per Renal to improve acid base Vent settings were adjusted Overall prognosis appears grim for meaningful survival. To have discussions with and family. Dr Musa Critical care time spent in reviewing chart, evaluating patient and formulating plan - 36 minutes.
[2018-08-07] MEDS: MUPIROCIN 2% TOPICAL OINTMENT FOR DECOLONIZATION NS SCH ×2 (10:30→21:31)
[2018-08-07 11:22] LABS: HEMATOCRIT 38.8 % (35.4-49); HEMOGLOBIN 12.1 GM/dL (11.7-16.9); MCH 31.2 pg (25.7-33.7); MCHC 31.1 g/dl (32.0-35.9); MEAN CELL VOLUME 100.2 fl (80-96); MEAN PLT VOLUME 10.3 fl (7.5-11.1); PLATELET COUNT 264 K/MM3 (134-434); RBC 3.87 M/mm3 (4.00-5.60); RDW 17.5 % (11.9-15.9); WHITE BLOOD COUNT 29.5 K/mm3 (4.0-10.0)
[2018-08-07 12:35] LABS: ALBUMIN 2.5 g/dl (3.4-5.0); ALK PHOS 159 U/L (45-117); ANION GAP 13 MMOL/L (8-16); BILIRUBIN,TOTAL 0.5 mg/dL (0.2-1); BLOOD UREA NITROGEN 50 mg/dL (7-18); CALCIUM 7.8 mg/dL (8.5-10.1); CHLORIDE 102 mmol/L (98-107); CO2 19 mmol/L (21-32); CREATININE 4.8 mg/dL (0.55-1.3); MAGNESIUM 2.9 mg/dL (1.8-2.4); PHOSPHOROUS 7.2 mg/dL (2.5-4.9); POTASSIUM 5.2 mmol/L (3.5-5.1); SGOT/AST 133 U/L (15-37); SGPT/ALT 82 U/L (13-61); SODIUM 134 mmol/L (136-145); TOT PROT 6.4 g/dl (6.4-8.2)
[2018-08-07 12:39] LABS: GLUCOSE,RANDOM 467 mg/dL (74-106)
[2018-08-07 12:58] LABS: ANISOCYTOSIS 2+; MACROCYTOSIS 1+; PLATELET ESTIMATE NORMAL
--- NOTE | 2018-08-07 13:34 | CON.CARD ---
Cardiology Consult (text) - Consultation Consultation Note: cc: s/p cardiac arrest hx from charts, pt not communicating hpi: 52 m hx esrd on hd, htn, dm, hld, obesity, radha, dchf, here s/p cardiac arrest. Was getting hd yesterday and had pea arrest. Pulse regained and now intubated on pressors. pmh: per hpi psh: fistula fam: unable to obtain social: no tob ros: n/a 2/2 ams meds: Home Medications Medication Instructions Recorded Aspirin [ASA -] 81 mg PO DAILY 02/14/16 Atorvastatin Ca [Lipitor] 10 mg PO HS 02/14/16 Gabapentin 400 mg PO DAILY 02/14/16 Sevelamer Carbonate [Renvela] 3,200 mg PO TID 01/05/18 Folic Acid/Vit B Complex and C 1 each PO 08/06/18 [Dialyvite Tablet] pe: Vital Signs Temp 94.4 F L 08/07/18 13:00 Pulse 72 08/07/18 13:00 Resp 22 H 08/07/18 13:00 BP 115/76 08/07/18 13:00 Pulse Ox 100 08/07/18 01:08 Intake & Output 08/06/18 08/07/18 08/07/18 23:59 11:59 23:59 Weight 260 lb 2.327 oz 279 lb 5.211 oz Other: Height 5 ft 9 in 5 ft 9 in Body Mass Index (BMI) 38.4 41.2 Weight Measurement Method Built in [facility] nad, no jvd, sedated rrr s1s2 no mrg cta bl ant, vented no le edema abd nd pos bs pos dp pt no jaundice diaphoresis Laboratory Last Values WBC 29.5 K/mm3 (4.0-10.0) H 08/07/18 10:15 RBC 3.87 M/mm3 (4.00-5.60) L 08/07/18 10:15 Hgb 12.1 GM/dL (11.7-16.9) 08/07/18 10:15 Hct 38.8 % (35.4-49) 08/07/18 10:15 MCV 100.2 fl (80-96) H 08/07/18 10:15 MCH 31.2 pg (25.7-33.7) 08/07/18 10:15 MCHC 31.1 g/dl (32.0-35.9) L 08/07/18 10:15 RDW 17.5 % (11.9-15.9) H 08/07/18 10:15 Plt Count 264 K/MM3 (134-434) 08/07/18 10:15 MPV 10.3 fl (7.5-11.1) 08/07/18 10:15 Absolute Neuts (auto) 27.1 K/mm3 (1.5-8.0) H 08/07/18 10:15 Neutrophils % No Result Required. 08/07/18 10:15 Neutrophils % (Manual) 51.0 % (42.8-82.8) D 08/06/18 19:10 Band Neutrophils % 10.0 % 08/06/18 19:10 Lymphocytes % No Result Required. 08/07/18 10:15 Lymphocytes % (Manual) 25.0 % (8-40) 08/06/18 19:10 Monocytes % 6.3 % (3.8-10.2) 08/07/18 05:30 Monocytes % (Manual) 3 % (3.8-10.2) L D 08/06/18 19:10 Eosinophils % 0.0 % (0-4.5) D 08/07/18 05:30 Eosinophils % (Manual) 1.0 % (0-4.5) D 08/06/18 19:10 Basophils % 0.2 % (0-2.0) 08/07/18 05:30 Basophils % (Manual) 0.0 % (0-2.0) 08/06/18 19:10 Myelocytes % (Man) 5 % (0-2) H 08/06/18 19:10 Nucleated RBC % 0 % (0-0) 08/07/18 10:15 Metamyelocytes 3 % (0-2) H 08/06/18 19:10 Platelet Estimate Adequate 08/06/18 19:10 Macrocytosis 1+ 08/06/18 19:10 PT with INR 13.00 SEC (9.7-13.0) 08/06/18 19:10 INR 1.10 (0.83-1.09) H 08/06/18 19:10 PTT (Actin FS) 27.5 SECONDS (25.2-36.5) 08/06/18 19:10 Anticoagulation Therapy No Result Required. 08/06/18 22:20 Puncture Site Right radial 08/07/18 09:15 Patient Temperature 92.0 08/07/18 06:30 ABG pH 7.10 (7.35-7.45) L* 08/07/18 09:15 ABG pCO2 at Pt Temp 58.4 mmHg (35-45) H 08/07/18 09:15 ABG pO2 at Pt Temp 74.3 mmHg (80-105) L 08/07/18 09:15 ABG HCO3 17.2 mmol/L (22-27) L 08/07/18 09:15 ABG O2 Sat (Measured) 90.1 % (95-98) L 08/07/18 09:15 ABG O2 Content 17.8 % vol (15-22) 08/07/18 09:15 ABG Base Excess -13.2 meq/l (-2-2) L 08/07/18 09:15 Get Test Positive 08/07/18 09:15 VBG pH 6.85 (7.31-7.41) L* 08/06/18 19:10 POC VBG pCO2 98.5 mmHg (41-51) H* 08/06/18 19:10 POC VBG pO2 35.8 mmHg (30-40) 08/06/18 19:10 VBG HCO3 16.3 mmol/L (23-29) L 08/06/18 19:10 VBG O2 Sat (Marzena) 30.4 % (70-80) L 08/06/18 19:10 VBG Base Excess -19.7 meq/l (-2-2) L 08/06/18 19:10 Carboxyhemoglobin 0.7 % (0-2) 08/06/18 22:20 Methemoglobin 0.6 % (0-2) 08/06/18 22:20 O2 Delivery Device Mech vent 08/07/18 09:15 Oxygen Flow Rate 80% 08/07/18 09:15 Vent Mode A/c 08/07/18 09:15 Vent Rate 18 08/07/18 09:15 Mechanical Rate Yes 08/07/18 09:15 PEEP 5.0 cmH2O 08/07/18 09:15 Pressure Support Vent 500 08/07/18 09:15 Sodium 134 mmol/L (136-145) L 08/07/18 11:30 Potassium 5.2 mmol/L (3.5-5.1) H 08/07/18 11:30 Chloride 102 mmol/L (98-107) 08/07/18 11:30 Carbon Dioxide 19 mmol/L (21-32) L 08/07/18 11:30 Anion Gap 13 MMOL/L (8-16) 08/07/18 11:30 BUN 50 mg/dL (7-18) H 08/07/18 11:30 Creatinine 4.8 mg/dL (0.55-1.3) H 08/07/18 11:30 Creat Clearance w eGFR 12.84 (>60) 08/07/18 11:30 POC Glucometer 351 UNITS (80-120) 08/07/18 12:53 Random Glucose 467 mg/dL (74-106) H* 08/07/18 11:30 Lactic Acid 2.0 mmol/L (0.4-2.0) 08/07/18 05:30 Calcium 7.8 mg/dL (8.5-10.1) L 08/07/18 11:30 Phosphorus 7.2 mg/dL (2.5-4.9) H 08/07/18 11:30 Magnesium 2.9 mg/dL (1.8-2.4) H 08/07/18 11:30 Total Bilirubin 0.5 mg/dL (0.2-1) 08/07/18 11:30 AST 133 U/L (15-37) H 08/07/18 11:30 ALT 82 U/L (13-61) H 08/07/18 11:30 Alkaline Phosphatase 159 U/L (45-117) H 08/07/18 11:30 Troponin I 0.50 ng/ml (0.00-0.05) H 08/07/18 11:30 Total Protein 6.4 g/dl (6.4-8.2) 08/07/18 11:30 Albumin 2.5 g/dl (3.4-5.0) L 08/07/18 11:30 Blood Type A POSITIVE 08/06/18 19:10 Antibody Screen Negative 08/06/18 19:10 cxr: r pna echo 10/2014: nl lv/rv, mod lae, mild tr/pr, mild ao root dil echo 08/2015: nl lv/rv, lae, mild tr, rvsp 30-40 ecg: sr, rbbb tele: sr est cct 35 mins a/p: 52 m hx esrd on hd, htn, dm, hld, obesity, radha, dchf, here s/p cardiac arrest. cardiac arrest, shock, resp failure: -now intubated with hypotension requiring pressors -check echo, cont tele -no signs acs or chf -cont abx per ID, infectious w/u elevate trops: -mild trop elevation but still in borderline range, not c/w acs, more likely demand from cardiac arrest -check echo chronic diastolic chf: -stable vol status with HD -check updated htn: -hold htn meds due to shock requiring pressors now hld: -continue statin esrd: -cont hd per renal hld: -continue statin when stable
--- NOTE | 2018-08-07 14:31 | PN ---
Physical Exam: SUBJECTIVE: Patient seen and examined, intubated and sedated, getting HD, unable to do ROS. OBJECTIVE: Vital Signs Period Temp Pulse Resp BP Sys/C[place] Pulse Ox Last 24 Hr 92 F-97.7 F 0-122 14-22 00-125/00-89 97-100 Intake & Output 08/04/18 08/05/18 08/06/18 08/07/18 23:59 23:59 23:59 23:59 Weight 260 lb 2.327 oz 279 lb 5.211 oz GENERAL: intubated sedated, morbidly obese (BMI 41), hypothermia protocol in place HEAD: Normal with no signs of trauma. EYES: pupils fixed and dilated ENT: NG tube in place, dried blood on the nostrils NECK: soft, limited exam given habitus LUNGS: decreased air entry all over, further exam limited HEART: Regular rate and rhythm, S1, S2 ABDOMEN: soft, obese, distended, hypoactive bowel sounds. EXTREMITIES: 2+ pulses, warm, well-perfused, no edema. Laboratory Results - last 24 hr 08/06/18 08/06/18 08/06/18 19:10 19:10 19:10 WBC 23.0 H RBC 3.66 L Hgb 11.3 L Hct 37.9 MCV 103.6 H MCH 30.9 MCHC 29.8 L RDW 17.6 H Plt Count 218 MPV 10.8 Absolute Neuts (auto) 15.3 H Neutrophils % 66.4 Neutrophils % (Manual) 51.0 D Band Neutrophils % 10.0 Lymphocytes % 26.9 D Lymphocytes % (Manual) 25.0 Monocytes % 5.2 Monocytes % (Manual) 3 L D Eosinophils % 0.7 Eosinophils % (Manual) 1.0 D Basophils % 0.8 Basophils % (Manual) 0.0 Myelocytes % (Man) 5 H Promyelocytes % (Man) Blast Cells % (Manual) Nucleated RBC % 4 H Metamyelocytes 3 H Hypochromia Platelet Estimate Adequate Platelet Comment Polychromasia Poikilocytosis Anisocytosis Microcytosis Macrocytosis 1+ PT with INR 13.00 INR 1.10 H PTT (Actin FS) 27.5 Anticoagulation Therapy Puncture Site Patient Temperature ABG pH ABG pCO2 at Pt Temp ABG pO2 at Pt Temp ABG HCO3 ABG O2 Sat (Measured) ABG O2 Content ABG Base Excess Get Test VBG pH 6.85 L* POC VBG pCO2 98.5 H* POC VBG pO2 35.8 VBG HCO3 16.3 L VBG O2 Sat (Marzena) 30.4 L VBG Base Excess -19.7 L Carboxyhemoglobin Methemoglobin O2 Delivery Device Oxygen Flow Rate Vent Mode Vent Rate Mechanical Rate PEEP Pressure Support Vent Sodium Potassium Chloride Carbon Dioxide Anion Gap BUN Creatinine Creat Clearance w eGFR POC Glucometer Random Glucose Lactic Acid Calcium Phosphorus Magnesium Total Bilirubin AST ALT Alkaline Phosphatase Troponin I Total Protein Albumin Blood Type Antibody Screen 08/06/18 08/06/18 08/06/18 19:10 19:10 19:10 WBC RBC Hgb Hct MCV MCH MCHC RDW Plt Count MPV Absolute Neuts (auto) Neutrophils % Neutrophils % (Manual) Band Neutrophils % Lymphocytes % Lymphocytes % (Manual) Monocytes % Monocytes % (Manual) Eosinophils % Eosinophils % (Manual) Basophils % Basophils % (Manual) Myelocytes % (Man) Promyelocytes % (Man) Blast Cells % (Manual) Nucleated RBC % Metamyelocytes Hypochromia Platelet Estimate Platelet Comment Polychromasia Poikilocytosis Anisocytosis Microcytosis Macrocytosis PT with INR INR PTT (Actin FS) Anticoagulation Therapy Puncture Site Patient Temperature ABG pH ABG pCO2 at Pt Temp ABG pO2 at Pt Temp ABG HCO3 ABG O2 Sat (Measured) ABG O2 Content ABG Base Excess Get Test VBG pH POC VBG pCO2 POC VBG pO2 VBG HCO3 VBG O2 Sat (Marzena) VBG Base Excess Carboxyhemoglobin Methemoglobin O2 Delivery Device Oxygen Flow Rate Vent Mode Vent Rate Mechanical Rate PEEP Pressure Support Vent Sodium Cancelled Potassium Cancelled Chloride Cancelled Carbon Dioxide Cancelled Anion Gap Cancelled BUN Cancelled Creatinine Cancelled Creat Clearance w eGFR Cancelled POC Glucometer Random Glucose Cancelled Lactic Acid 12.2 H* Calcium Cancelled Phosphorus Magnesium Total Bilirubin Cancelled AST Cancelled ALT Cancelled Alkaline Phosphatase Cancelled Troponin I < 0.02 Total Protein Cancelled Albumin Cancelled Blood Type Antibody Screen 08/06/18 08/06/18 08/06/18 19:10 19:10 20:30 WBC RBC Hgb Hct MCV MCH MCHC RDW Plt Count MPV Absolute Neuts (auto) Neutrophils % Neutrophils % (Manual) Band Neutrophils % Lymphocytes % Lymphocytes % (Manual) Monocytes % Monocytes % (Manual) Eosinophils % Eosinophils % (Manual) Basophils % Basophils % (Manual) Myelocytes % (Man) Promyelocytes % (Man) Blast Cells % (Manual) Nucleated RBC % Metamyelocytes Hypochromia Platelet Estimate Platelet Comment Polychromasia Poikilocytosis Anisocytosis Microcytosis Macrocytosis PT with INR INR PTT (Actin FS) Anticoagulation Therapy Puncture Site Patient Temperature ABG pH ABG pCO2 at Pt Temp ABG pO2 at Pt Temp ABG HCO3 ABG O2 Sat (Measured) ABG O2 Content ABG Base Excess Get Test VBG pH POC VBG pCO2 POC VBG pO2 VBG HCO3 VBG O2 Sat (Marzena) VBG Base Excess Carboxyhemoglobin Methemoglobin O2 Delivery Device Oxygen Flow Rate Vent Mode Vent Rate Mechanical Rate PEEP Pressure Support Vent Sodium 136 Potassium 6.5 H* Chloride 100 Carbon Dioxide 16 L Anion Gap 20 H BUN 56 H Creatinine 5.5 H Creat Clearance w eGFR 10.97 POC Glucometer 398 Random Glucose 424 H* Lactic Acid Calcium 9.0 Phosphorus Magnesium Total Bilirubin 0.3 AST 120 H ALT 87 H Alkaline Phosphatase 188 H Troponin I Total Protein 6.6 Albumin 2.7 L Blood Type A POSITIVE Antibody Screen Negative 08/06/18 08/07/18 08/07/18 22:20 00:38 00:38 WBC RBC Hgb Hct MCV MCH MCHC RDW Plt Count MPV Absolute Neuts (auto) Neutrophils % Neutrophils % (Manual) Band Neutrophils % Lymphocytes % Lymphocytes % (Manual) Monocytes % Monocytes % (Manual) Eosinophils % Eosinophils % (Manual) Basophils % Basophils % (Manual) Myelocytes % (Man) Promyelocytes % (Man) Blast Cells % (Manual) Nucleated RBC % Metamyelocytes Hypochromia Platelet Estimate Platelet Comment Polychromasia Poikilocytosis Anisocytosis Microcytosis Macrocytosis PT with INR INR PTT (Actin FS) Anticoagulation Therapy No Result Required. Puncture Site Right radial Patient Temperature 96 ABG pH 6.96 L* ABG pCO2 at Pt Temp 75.1 H* ABG pO2 at Pt Temp 126 H ABG HCO3 16.1 L ABG O2 Sat (Measured) 95.7 ABG O2 Content 16.6 ABG Base Excess -17.2 L Get Test Positive VBG pH POC VBG pCO2 POC VBG pO2 VBG HCO3 VBG O2 Sat (Marzena) VBG Base Excess Carboxyhemoglobin 0.7 Methemoglobin 0.6 O2 Delivery Device Vent Oxygen Flow Rate 100% Vent Mode No Result Required. Vent Rate 14 Mechanical Rate No Result Required. PEEP 5.0 Pressure Support Vent No Result Required. Sodium 134 L Potassium 6.0 H Chloride 99 Carbon Dioxide 20 L Anion Gap 15 BUN 61 H Creatinine 5.4 H Creat Clearance w eGFR 11.21 POC Glucometer Random Glucose 376 H* Lactic Acid 4.8 H* Calcium 8.5 Phosphorus Magnesium Total Bilirubin AST ALT Alkaline Phosphatase Troponin I 0.18 H Total Protein Albumin Blood Type Antibody Screen 08/07/18 08/07/18 08/07/18 05:30 05:30 05:30 WBC 30.9 H* RBC 4.13 Hgb 12.4 Hct 40.9 MCV 99.0 H MCH 30.0 MCHC 30.3 L RDW 17.3 H Plt Count 287 D MPV 9.8 Absolute Neuts (auto) 28.4 H Neutrophils % 91.8 H D Neutrophils % (Manual) 90.0 H D Band Neutrophils % 4.0 Lymphocytes % 1.7 L D Lymphocytes % (Manual) 1.0 L D Monocytes % 6.3 Monocytes % (Manual) 4 Eosinophils % 0.0 D Eosinophils % (Manual) 0.0 D Basophils % 0.2 Basophils % (Manual) 0.0 Myelocytes % (Man) 0 D Promyelocytes % (Man) 0 Blast Cells % (Manual) 0 Nucleated RBC % 1 H Metamyelocytes 0 D Hypochromia 0 Platelet Estimate Normal Platelet Comment Present Polychromasia 2+ Poikilocytosis 0 Anisocytosis 2+ Microcytosis 1+ Macrocytosis 1+ PT with INR INR PTT (Actin FS) Anticoagulation Therapy Puncture Site Patient Temperature ABG pH ABG pCO2 at Pt Temp ABG pO2 at Pt Temp ABG HCO3 ABG O2 Sat (Measured) ABG O2 Content ABG Base Excess Get Test VBG pH POC VBG pCO2 POC VBG pO2 VBG HCO3 VBG O2 Sat (Marzena) VBG Base Excess Carboxyhemoglobin Methemoglobin O2 Delivery Device Oxygen Flow Rate Vent Mode Vent Rate Mechanical Rate PEEP Pressure Support Vent Sodium 132 L Potassium 5.8 H Chloride 100 Carbon Dioxide 19 L Anion Gap 14 BUN 60 H Creatinine 5.7 H Creat Clearance w eGFR 10.53 POC Glucometer Random Glucose 399 H* Lactic Acid Calcium 8.3 L Phosphorus > 9.0 H* Magnesium 3.0 H Total Bilirubin 0.6 AST 176 H ALT 93 H Alkaline Phosphatase 180 H Troponin I 0.48 H Total Protein 6.9 Albumin 2.7 L Blood Type Antibody Screen 08/07/18 08/07/18 08/07/18 05:30 06:12 06:30 WBC RBC Hgb Hct MCV MCH MCHC RDW Plt Count MPV Absolute Neuts (auto) Neutrophils % Neutrophils % (Manual) Band Neutrophils % Lymphocytes % Lymphocytes % (Manual) Monocytes % Monocytes % (Manual) Eosinophils % Eosinophils % (Manual) Basophils % Basophils % (Manual) Myelocytes % (Man) Promyelocytes % (Man) Blast Cells % (Manual) Nucleated RBC % Metamyelocytes Hypochromia Platelet Estimate Platelet Comment Polychromasia Poikilocytosis Anisocytosis Microcytosis Macrocytosis PT with INR INR PTT (Actin FS) Anticoagulation Therapy Puncture Site Right radial Patient Temperature 92.0 ABG pH 7.09 L* ABG pCO2 at Pt Temp 55.5 H ABG pO2 at Pt Temp 68.2 L ABG HCO3 17.4 L ABG O2 Sat (Measured) 92.6 L ABG O2 Content 16.9 ABG Base Excess -14.1 L Get Test Positive VBG pH POC VBG pCO2 POC VBG pO2 VBG HCO3 VBG O2 Sat (Marzena) VBG Base Excess Carboxyhemoglobin Methemoglobin O2 Delivery Device Mech vent Oxygen Flow Rate 100% Vent Mode A/c Vent Rate 14 Mechanical Rate Yes PEEP 5.0 Pressure Support Vent 500 Sodium Potassium Chloride Carbon Dioxide Anion Gap BUN Creatinine Creat Clearance w eGFR POC Glucometer 402 Random Glucose Lactic Acid 2.0 Calcium Phosphorus Magnesium Total Bilirubin AST ALT Alkaline Phosphatase Troponin I Total Protein Albumin Blood Type Antibody Screen 08/07/18 08/07/18 08/07/18 08:51 09:15 10:15 WBC 29.5 H RBC 3.87 L Hgb 12.1 Hct 38.8 MCV 100.2 H MCH 31.2 MCHC 31.1 L RDW 17.5 H Plt Count 264 MPV 10.3 Absolute Neuts (auto) 27.1 H Neutrophils % No Result Required. Neutrophils % (Manual) Band Neutrophils % Lymphocytes % No Result Required. Lymphocytes % (Manual) Monocytes % Monocytes % (Manual) Eosinophils % Eosinophils % (Manual) Basophils % Basophils % (Manual) Myelocytes % (Man) Promyelocytes % (Man) Blast Cells % (Manual) Nucleated RBC % 0 Metamyelocytes Hypochromia Platelet Estimate Platelet Comment Polychromasia Poikilocytosis Anisocytosis Microcytosis Macrocytosis PT with INR INR PTT (Actin FS) Anticoagulation Therapy Puncture Site Right radial Patient Temperature ABG pH 7.10 L* ABG pCO2 at Pt Temp 58.4 H ABG pO2 at Pt Temp 74.3 L ABG HCO3 17.2 L ABG O2 Sat (Measured) 90.1 L ABG O2 Content 17.8 ABG Base Excess -13.2 L Get Test Positive VBG pH POC VBG pCO2 POC VBG pO2 VBG HCO3 VBG O2 Sat (Marzena) VBG Base Excess Carboxyhemoglobin Methemoglobin O2 Delivery Device Mech vent Oxygen Flow Rate 80% Vent Mode A/c Vent Rate 18 Mechanical Rate Yes PEEP 5.0 Pressure Support Vent 500 Sodium Potassium Chloride Carbon Dioxide Anion Gap BUN Creatinine Creat Clearance w eGFR POC Glucometer 341 Random Glucose Lactic Acid Calcium Phosphorus Magnesium Total Bilirubin AST ALT Alkaline Phosphatase Troponin I Total Protein Albumin Blood Type Antibody Screen 08/07/18 08/07/18 11:30 12:53 WBC RBC Hgb Hct MCV MCH MCHC RDW Plt Count MPV Absolute Neuts (auto) Neutrophils % Neutrophils % (Manual) Band Neutrophils % Lymphocytes % Lymphocytes % (Manual) Monocytes % Monocytes % (Manual) Eosinophils % Eosinophils % (Manual) Basophils % Basophils % (Manual) Myelocytes % (Man) Promyelocytes % (Man) Blast Cells % (Manual) Nucleated RBC % Metamyelocytes Hypochromia Platelet Estimate Platelet Comment Polychromasia Poikilocytosis Anisocytosis Microcytosis Macrocytosis PT with INR INR PTT (Actin FS) Anticoagulation Therapy Puncture Site Patient Temperature ABG pH ABG pCO2 at Pt Temp ABG pO2 at Pt Temp ABG HCO3 ABG O2 Sat (Measured) ABG O2 Content ABG Base Excess Get Test VBG pH POC VBG pCO2 POC VBG pO2 VBG HCO3 VBG O2 Sat (Marzena) VBG Base Excess Carboxyhemoglobin Methemoglobin O2 Delivery Device Oxygen Flow Rate Vent Mode Vent Rate Mechanical Rate PEEP Pressure Support Vent Sodium 134 L Potassium 5.2 H Chloride 102 Carbon Dioxide 19 L Anion Gap 13 BUN 50 H Creatinine 4.8 H Creat Clearance w eGFR 12.84 POC Glucometer 351 Random Glucose 467 H* Lactic Acid Calcium 7.8 L Phosphorus 7.2 H Magnesium 2.9 H Total Bilirubin 0.5 AST 133 H ALT 82 H Alkaline Phosphatase 159 H Troponin I 0.50 H Total Protein 6.4 Albumin 2.5 L Blood Type Antibody Screen Active Medications Generic Name Dose Route Start Last Admin Trade Name John PRN Reason Stop Dose Admin Chlorhexidine Gluconate 1 applic 08/06/18 22:00 08/06/18 23:36 Hibiclens For Decolonization - TP 1 applic HS ELEONORA Administration Fentanyl 25 mcg 08/07/18 10:05 Sublimaze Injection - IVPUSH 08/08/18 10:14 Q4H PRN PAIN LEVEL 7 - 10 Norepinephrine Bitartrate 4, 500 mls @ 37.5 mls/hr 08/06/18 19:30 08/07/18 08 :00 000 mcg/ Dextrose IV 15 mcg/min TITR ELEONORA 112.5 mls/hr Administration Protocol 5 MCG/MIN Vasopressin 50 units/ Sodium 100 mls @ 4 mls/hr 08/07/18 00:15 08/07/18 00:15 Chloride IVPB 2 units/hr TITR ELEONORA 4 mls/hr Administration Protocol 2 UNITS/HR Sodium Chloride 250 mls @ 3,000 mls/hr 08/07/18 07:45 Normal Saline - IV 08/08/18 07:45 PRN PRN Hypotension during Dialysis Clindamycin Phosphate 600 mg in 50 mls @ 100 mls/hr 08/07/18 10:00 08/07/18 09:05 Cleocin 600 Mg Premix Ivpb - IVPB 100 mls/hr Q8H-IV ELEONORA Administration Protocol Cefepime HCl 1 gm/ Dextrose 100 mls @ 200 mls/hr 08/07/18 10:00 08/07/18 09: 05 IVPB 200 mls/hr DAILY ELEONORA Administration Insulin Aspart 1 vial 08/07/18 07:00 08/07/18 12:55 Novolog Vial Sliding Scale - SQ 10 unit ACHS ELEONORA Administration Protocol Mupirocin 1 applic 08/06/18 22:00 08/07/18 10:30 Bactroban Ointment (For Decolonization) - NS 08/11/18 21:59 1 applic BID ELEONORA Administration Pantoprazole Sodium 40 mg 08/07/18 10:00 08/07/18 10:00 Protonix Iv IVPUSH 40 mg DAILY ELEONORA Administration Home Medications Medication Instructions Recorded Aspirin [ASA -] 81 mg PO DAILY 10/06/16 Atorvastatin Ca [Lipitor] 10 mg PO HS 02/14/16 Gabapentin 400 mg PO DAILY 02/14/16 Sevelamer Carbonate [Renvela] 3,200 mg PO TID 01/05/18 Folic Acid/Vit B Complex and C 1 each PO 08/06/18 [Dialyvite Tablet] ASSESSMENT/PLAN: 52 yom with PMhx of IDDM, diastolic CHF, pulmonary HTN, renal failure (on HD MWF ), sleep apnea, gout, recently advised midodrine with HD, admitted with cardiac arrest (s/p almost 1 hour of CPR) -Cardiac arrest -Acute hypoxic respiratory failure -Shock, r/o sepsis, unlikely cardiogenic -Suspected aspiration PNA -Hyperkalemia -Acute combined respiratory metabolic acidosis -Hyperglycemia -Hyperkalemia -Chronic diastolic CHF -IDDM -Pulmonary HTN -ESRD on HD -MJ -Gout Plan: Intubated. Vasopressin/Norepinephrine. Ongoing hypothermia protocol. Currently getting HD. Monitor electrolytes. ID input noted. Cefepime/vanco/clindamycin. Follow up cultures. Hold Anti-HTN. Tube feeds Pupils fixed and dilated. Prognosis grim. Readdress post hypothermia protocol. Palliative care consult. Ongoing discussion with family [id number] Dispo ICU level of care. Plan discussed with nursing, care co-ordinated with ICU team. Total critical care time spent 37 min. Visit type - Emergency Visit Emergency Visit: Yes ED Registration Date: 08/06/18 Care time: The patient presented to the Emergency Department on the above date and was hospitalized for further evaluation of their emergent condition. - New Patient This patient is new to me today: Yes Date on this admission: 08/07/18 - Critical Care Critical Care patient: Yes Total Critical Care Time (in minutes): 37 Critical Care Statement: The care of this patient involved high complexity decision making to prevent further life threatening deterioration of the patient 's condition and/or to evaluate & treat vital organ system(s) failure or risk of failure.
[2018-08-07] MEDS ORDERED: ALBUTEROL SO4 0.083% IH SOL 2.5 MG/3 ML VIAL.NEB. NEB ONE (15:15)
[2018-08-07 15:39] LABS: ANISOCYTOSIS 1+; MACROCYTOSIS 0; PLATELET ESTIMATE NORMAL
[2018-08-07 17:09] LABS: ARTERIAL BLD GAS O2 SATURATION 97.7 % (95-98); ARTERIAL BLOOD GAS BASE EXCESS -1.9 meq/l (-2-2); ARTERIAL BLOOD GAS PCO2 43.4 mmHg (35-45); ARTERIAL BLOOD GAS PO2 100 mmHg (80-105); ARTERIAL BLOOD GAS pH 7.35 (7.35-7.45)
[2018-08-07 17:11] LABS: ALLENS TEST POSITIVE
[2018-08-07] MEDS: CHLORHEXIDINE GLUCONATE 4% CLEANSER FOR DECOLONIZATION TP SCH (21:32)
[2018-08-07 21:45] LABS: ALBUMIN 2.8 g/dl (3.4-5.0); ALK PHOS 185 U/L (45-117); ANION GAP 13 MMOL/L (8-16); BILIRUBIN,TOTAL 0.5 mg/dL (0.2-1); BLOOD UREA NITROGEN 25 mg/dL (7-18); CALCIUM 7.7 mg/dL (8.5-10.1); CHLORIDE 100 mmol/L (98-107); CO2 27 mmol/L (21-32); CREATININE 2.8 mg/dL (0.55-1.3); MAGNESIUM 2.1 mg/dL (1.8-2.4); POTASSIUM 3.7 mmol/L (3.5-5.1); SGOT/AST 145 U/L (15-37); SGPT/ALT 86 U/L (13-61); SODIUM 140 mmol/L (136-145); TOT PROT 6.9 g/dl (6.4-8.2)
[2018-08-07 22:06] LABS: GLUCOSE,RANDOM 314 mg/dL (74-106)
[2018-08-08] MEDS: CLINDAMYCIN 600MG PREMIX IVPB 600 MG/50 ML BAG IVPB SCH ×3 (02:30→18:20)
[2018-08-08] MEDS: VASOPRESSIN 50 UNITS in SODIUM CHLORIDE 97.5 ML IVPB SCH (03:07)
[2018-08-08 04:11] LABS: HBSAG SCREEN Negative (Negative); HEP B CORE AB, TOT Negative (Negative)
[2018-08-08] MEDS: INSULIN SLIDING SCALE (NOVOLOG) 1 VIAL SQ SCH ×4 (06:43→21:33)
[2018-08-08 06:58] LABS: HEMATOCRIT 34.7 % (35.4-49); HEMOGLOBIN 11.1 GM/dL (11.7-16.9); MCH 30.4 pg (25.7-33.7); MCHC 32.1 g/dl (32.0-35.9); MEAN CELL VOLUME 94.7 fl (80-96); MEAN PLT VOLUME 10.1 fl (7.5-11.1); PLATELET COUNT 185 K/MM3 (134-434); RBC 3.66 M/mm3 (4.00-5.60); RDW 16.6 % (11.9-15.9)
[2018-08-08 07:32] LABS: ALBUMIN 2.3 g/dl (3.4-5.0); ALK PHOS 153 U/L (45-117); ANION GAP 13 MMOL/L (8-16); BILIRUBIN,TOTAL 0.4 mg/dL (0.2-1); BLOOD UREA NITROGEN 38 mg/dL (7-18); CALCIUM 7.5 mg/dL (8.5-10.1); CHLORIDE 97 mmol/L (98-107); CO2 24 mmol/L (21-32); CREATININE 4.1 mg/dL (0.55-1.3); MAGNESIUM 2.2 mg/dL (1.8-2.4); PHOSPHOROUS 5.9 mg/dL (2.5-4.9); POTASSIUM 4.1 mmol/L (3.5-5.1); SGOT/AST 147 U/L (15-37); SGPT/ALT 65 U/L (13-61); SODIUM 134 mmol/L (136-145); TOT PROT 5.9 g/dl (6.4-8.2)
--- NOTE | 2018-08-08 07:51 | PN ---
Progress Note (short form) - Note Progress Note: RENAL remains unresponsive on levophed comfortable Last Vital Signs Temp Pulse Resp BP Pulse Ox 96.6 F L 72 22 H 92/61 100 08/08/18 06:00 08/08/18 06:00 08/08/18 06:37 08/08/18 06:00 08/07/18 21:00 lungs clear anteriorly cvs s1s2 rr abd soft ext no edema neuro not responsive CBC, BMP 08/08/18 05:30 08/08/18 05:30 Current Medications Generic Name Dose Route Start Last Admin Trade Name Freq PRN Reason Stop Dose Admin Chlorhexidine Gluconate 1 applic 08/06/18 22:00 08/07/18 21:32 Hibiclens For Decolonization - TP 1 applic HS ELEONORA Administration Fentanyl 25 mcg 08/07/18 10:05 Sublimaze Injection - IVPUSH 08/08/18 10:14 Q4H PRN PAIN LEVEL 7 - 10 Norepinephrine Bitartrate 4, 500 mls @ 37.5 mls/hr 08/06/18 19:30 08/07/18 23 :33 000 mcg/ Dextrose IV 5 mcg/min TITR ELEONORA 37.5 mls/hr Titration Protocol 5 MCG/MIN Vasopressin 50 units/ Sodium 100 mls @ 4 mls/hr 08/07/18 00:15 08/08/18 03:07 Chloride IVPB Not Given TITR ELEONORA Protocol 2 UNITS/HR Clindamycin Phosphate 600 mg in 50 mls @ 100 mls/hr 08/07/18 10:00 08/08/18 02:30 Cleocin 600 Mg Premix Ivpb - IVPB 100 mls/hr Q8H-IV ELEONORA Administration Protocol Cefepime HCl 1 gm/ Dextrose 100 mls @ 200 mls/hr 08/07/18 10:00 08/07/18 09: 05 IVPB 200 mls/hr DAILY ELEONORA Administration Insulin Aspart 1 vial 08/08/18 06:41 08/08/18 06:43 Novolog Vial Sliding Scale - SQ 12 unit ACHS ELEONORA Administration Protocol Mupirocin 1 applic 08/06/18 22:00 08/07/18 21:31 Bactroban Ointment (For Decolonization) - NS 08/11/18 21:59 1 applic BID ELEONORA Administration Pantoprazole Sodium 40 mg 08/07/18 10:00 08/07/18 10:00 Protonix Iv IVPUSH 40 mg DAILY ELEONORA Administration IMPRESSION esrd s/p cardiac arrest s/p resp and met acidosis which sems better after hd and adjusting vent anoxic brain injury PLAN continue pressors/antibiotics echo- to eval cardiogenic shock will need to be evaluated tomorrow for dialysis again (by Dr Jalloh) MV
[2018-08-08 07:56] LABS: GLUCOSE,RANDOM 410 mg/dL (74-106)
--- NOTE | 2018-08-08 10:05 | PN ---
Progress Note (short form) - Note Progress Note: intubated unresponsive Vital Signs Period Temp Pulse Resp BP Sys/[place] Pulse Ox Last 24 Hr 91.2 F-97.6 F 59-113 18-22 92-148/60-93 100 cor-rrr lulngs decreased bs on the right abd soft,nt ext left avf CBC, BMP 08/08/18 05:30 08/08/18 05:30 Microbiology 08/06/18 20:10 Blood - Peripheral Venous Blood Culture - Preliminary Pending Organism 08/06/18 20:10 Blood - Peripheral Venous Blood Culture - Preliminary NO GROWTH OBTAINED AFTER 24 HOURS, INCUBATION TO CONTINUE FOR 4 DAYS. a/p s/p arrest aspiration pneumonia bacteremia esrd/hd diabetes pen allergy- rash, has taken keflex in the past cipro allergy - rash overall prognosis grim continue clindamycin/cefepime check vancomycin level and redose Problem List - Problems (1) Cardiac arrest Code(s): I46.9 - CARDIAC ARREST, CAUSE UNSPECIFIED (2) Aspiration pneumonia Code(s): J69.0 - PNEUMONITIS DUE TO INHALATION OF FOOD AND VOMIT (3) ESRD on hemodialysis Code(s): N18.6 - END STAGE RENAL DISEASE; Z99.2 - DEPENDENCE ON RENAL DIALYSIS (4) Diabetes Code(s): E11.9 - TYPE 2 DIABETES MELLITUS WITHOUT COMPLICATIONS (5) Allergy to multiple antibiotics Code(s): Z88.1 - ALLERGY STATUS TO OTHER ANTIBIOTIC AGENTS STATUS
--- NOTE | 2018-08-08 10:25 | PN ---
Teaching Attending Note Name of Resident: Violeta Cerda ATTENDING PHYSICIAN STATEMENT I saw and evaluated the patient. I reviewed the resident's note and discussed the case with the resident. I agree with the resident's findings and plan as documented. SUBJECTIVE: Patient seen and examined in the ICU. AC Mode of vent. Minimal response to noxious stimuli. Overbreathing the ventilator. NE @ 5mcq for hemodynamic support. Intake & Output 08/05/18 08/06/18 08/07/18 08/08/18 23:59 23:59 23:59 23:59 Intake Total 358 596 Balance 358 596 Weight 260 lb 2.327 oz 279 lb 5.211 oz 272 lb 14.916 oz Last Vital Signs Temp Pulse Resp BP Pulse Ox 97.6 F 74 22 H 94/64 100 08/08/18 07:55 08/08/18 07:55 08/08/18 09:00 08/08/18 07:55 08/07/18 21:00 Active Medications Chlorhexidine Gluconate (Hibiclens For Decolonization -) 1 applic TP HS [facility] Last Admin: 08/07/18 21:32 Dose: 1 applic Norepinephrine Bitartrate 4, (000 mcg/ Dextrose) 500 mls @ 37.5 mls/hr IV TITR [facility]; Protocol Last Titration: 08/07/18 23:33 Dose: 5 mcg/min, 37.5 mls/hr Vasopressin 50 units/ Sodium (Chloride) 100 mls @ 4 mls/hr IVPB TITR [facility]; Protocol Last Admin: 08/08/18 03:07 Dose: Not Given Clindamycin Phosphate (Cleocin 600 Mg Premix Ivpb -) 600 mg in 50 mls @ 100 mls /hr IVPB Q8H-IV [facility]; Protocol Last Admin: 08/08/18 02:30 Dose: 100 mls/hr Cefepime HCl 1 gm/ Dextrose 100 mls @ 200 mls/hr IVPB DAILY [facility] Last Admin: 08/07/18 09:05 Dose: 200 mls/hr Insulin Aspart (Novolog Vial Sliding Scale -) 1 vial SQ ACHS [facility]; Protocol Last Admin: 08/08/18 06:43 Dose: 12 unit Mupirocin (Bactroban Ointment (For Decolonization) -) 1 applic NS BID [facility] Stop: 08/11/18 21:59 Last Admin: 08/07/18 21:31 Dose: 1 applic Pantoprazole Sodium (Protonix Iv) 40 mg IVPUSH DAILY [facility] Last Admin: 08/07/18 10:00 Dose: 40 mg GENERAL: Intubated. Unresponsive to sternal rub. HEENT: AT/NC. Pupils fixed b/l. ET tube in place. NG tube in place. NECK: RIJ line in place. LUNGS: scattered rhonchi b/l. HEART: RRR. S1, S2. No murmurs noted. ABDOMEN: Obese. distended, hypoactive BS MUSCULOSKELETAL: WNL EXTREMITIES: 2+ b/l dorsalis pedis pulses. NEUROLOGICAL: Obtunded,absent pupillary or gag reflex SKIN: Multiple superficial lesions noted on midsternum. Laboratory Results - last 24 hr 08/07/18 08/07/18 08/07/18 05:30 10:15 11:30 WBC 29.5 H RBC 3.87 L Hgb 12.1 Hct 38.8 MCV 100.2 H MCH 31.2 MCHC 31.1 L RDW 17.5 H Plt Count 264 MPV 10.3 Absolute Neuts (auto) 27.1 H Neutrophils % No Result Required. Neutrophils % (Manual) 90.0 H D 81.0 Band Neutrophils % 4.0 10.7 Lymphocytes % No Result Required. Lymphocytes % (Manual) 1.0 L D 1.0 L Monocytes % (Manual) 4 9 D Eosinophils % (Manual) 0.0 D 0.0 Basophils % (Manual) 0.0 0.0 Myelocytes % (Man) 0 D 1 D Promyelocytes % (Man) 0 0 Blast Cells % (Manual) 0 0 Nucleated RBC % 0 Metamyelocytes 0 D 0 Hypochromia 0 0 Platelet Estimate Normal Normal Platelet Comment Present Polychromasia 2+ 1+ Poikilocytosis 0 1+ Anisocytosis 2+ 1+ Microcytosis 1+ 1+ Macrocytosis 1+ 0 Anticoagulation Therapy Puncture Site ABG pH ABG pCO2 at Pt Temp ABG pO2 at Pt Temp ABG HCO3 ABG O2 Sat (Measured) ABG O2 Content ABG Base Excess Get Test O2 Delivery Device Oxygen Flow Rate Vent Mode Vent Rate Mechanical Rate PEEP Pressure Support Vent Sodium 134 L Potassium 5.2 H Chloride 102 Carbon Dioxide 19 L Anion Gap 13 BUN 50 H Creatinine 4.8 H Creat Clearance w eGFR 12.84 POC Glucometer Random Glucose 467 H* Calcium 7.8 L Phosphorus 7.2 H Magnesium 2.9 H Total Bilirubin 0.5 AST 133 H ALT 82 H Alkaline Phosphatase 159 H Creatine Kinase Creatine Kinase Index CK-MB (CK-2) Troponin I 0.50 H Total Protein 6.4 Albumin 2.5 L Hepatitis A Ab Total Hep Bs Antigen Hep Bs Antibody Hep B Core Total Ab Hep C Ab Diagnostic 08/07/18 08/07/18 08/07/18 11:30 11:30 12:53 WBC RBC Hgb Hct MCV MCH MCHC RDW Plt Count MPV Absolute Neuts (auto) Neutrophils % Neutrophils % (Manual) Band Neutrophils % Lymphocytes % Lymphocytes % (Manual) Monocytes % (Manual) Eosinophils % (Manual) Basophils % (Manual) Myelocytes % (Man) Promyelocytes % (Man) Blast Cells % (Manual) Nucleated RBC % Metamyelocytes Hypochromia Platelet Estimate Platelet Comment Polychromasia Poikilocytosis Anisocytosis Microcytosis Macrocytosis Anticoagulation Therapy Puncture Site ABG pH ABG pCO2 at Pt Temp ABG pO2 at Pt Temp ABG HCO3 ABG O2 Sat (Measured) ABG O2 Content ABG Base Excess Get Test O2 Delivery Device Oxygen Flow Rate Vent Mode Vent Rate Mechanical Rate PEEP Pressure Support Vent Sodium Potassium Chloride Carbon Dioxide Anion Gap BUN Creatinine Creat Clearance w eGFR POC Glucometer 351 Random Glucose Calcium Phosphorus Magnesium Total Bilirubin AST ALT Alkaline Phosphatase Creatine Kinase Creatine Kinase Index CK-MB (CK-2) Troponin I Total Protein Albumin Hepatitis A Ab Total Negative Hep Bs Antigen Negative Hep Bs Antibody Non reactive Hep B Core Total Ab Negative Hep C Ab Diagnostic <0.1 08/07/18 08/07/18 08/07/18 13:10 13:10 16:50 WBC RBC Hgb Hct MCV MCH MCHC RDW Plt Count MPV Absolute Neuts (auto) Neutrophils % Neutrophils % (Manual) Band Neutrophils % Lymphocytes % Lymphocytes % (Manual) Monocytes % (Manual) Eosinophils % (Manual) Basophils % (Manual) Myelocytes % (Man) Promyelocytes % (Man) Blast Cells % (Manual) Nucleated RBC % Metamyelocytes Hypochromia Platelet Estimate Platelet Comment Polychromasia Poikilocytosis Anisocytosis Microcytosis Macrocytosis Anticoagulation Therapy No Result Required. Puncture Site Right radial ABG pH 7.35 ABG pCO2 at Pt Temp 43.4 ABG pO2 at Pt Temp 100 ABG HCO3 23.2 ABG O2 Sat (Measured) 97.7 ABG O2 Content 16.8 ABG Base Excess -1.9 Get Test Positive O2 Delivery Device Mec.vent Oxygen Flow Rate 80 Vent Mode No Result Required. Vent Rate 22 Mechanical Rate No Result Required. PEEP 5.0 Pressure Support Vent No Result Required. Sodium 140 Potassium 3.7 Chloride 100 Carbon Dioxide 27 Anion Gap 13 BUN 25 H Creatinine 2.8 H Creat Clearance w eGFR 23.92 POC Glucometer Random Glucose 314 H* Calcium 7.7 L Phosphorus 4.0 Magnesium 2.1 Total Bilirubin 0.5 AST 145 H ALT 86 H Alkaline Phosphatase 185 H Creatine Kinase 460 H Creatine Kinase Index 3.1 CK-MB (CK-2) 14.7 H Troponin I 0.48 H Total Protein 6.9 Albumin 2.8 L Hepatitis A Ab Total Hep Bs Antigen Hep Bs Antibody Hep B Core Total Ab Hep C Ab Diagnostic 08/07/18 08/07/18 08/08/18 17:53 21:36 05:30 WBC RBC Hgb Hct MCV MCH MCHC RDW Plt Count MPV Absolute Neuts (auto) Neutrophils % Neutrophils % (Manual) Band Neutrophils % Lymphocytes % Lymphocytes % (Manual) Monocytes % (Manual) Eosinophils % (Manual) Basophils % (Manual) Myelocytes % (Man) Promyelocytes % (Man) Blast Cells % (Manual) Nucleated RBC % Metamyelocytes Hypochromia Platelet Estimate Platelet Comment Polychromasia Poikilocytosis Anisocytosis Microcytosis Macrocytosis Anticoagulation Therapy Puncture Site ABG pH ABG pCO2 at Pt Temp ABG pO2 at Pt Temp ABG HCO3 ABG O2 Sat (Measured) ABG O2 Content ABG Base Excess Get Test O2 Delivery Device Oxygen Flow Rate Vent Mode Vent Rate Mechanical Rate PEEP Pressure Support Vent Sodium 134 L Potassium 4.1 Chloride 97 L Carbon Dioxide 24 Anion Gap 13 BUN 38 H Creatinine 4.1 H Creat Clearance w eGFR 15.40 POC Glucometer 311 387 Random Glucose 410 H* Calcium 7.5 L Phosphorus 5.9 H Magnesium 2.2 Total Bilirubin 0.4 AST 147 H ALT 65 H Alkaline Phosphatase 153 H Creatine Kinase 401 H Creatine Kinase Index 3.3 CK-MB (CK-2) 13.3 H Troponin I 0.33 H Total Protein 5.9 L Albumin 2.3 L Hepatitis A Ab Total Hep Bs Antigen Hep Bs Antibody Hep B Core Total Ab Hep C Ab Diagnostic 08/08/18 08/08/18 05:30 06:39 WBC 15.0 H RBC 3.66 L Hgb 11.1 L Hct 34.7 L MCV 94.7 MCH 30.4 MCHC 32.1 RDW 16.6 H Plt Count 185 D MPV 10.1 Absolute Neuts (auto) Neutrophils % Neutrophils % (Manual) Band Neutrophils % Lymphocytes % Lymphocytes % (Manual) Monocytes % (Manual) Eosinophils % (Manual) Basophils % (Manual) Myelocytes % (Man) Promyelocytes % (Man) Blast Cells % (Manual) Nucleated RBC % Metamyelocytes Hypochromia Platelet Estimate Platelet Comment Polychromasia Poikilocytosis Anisocytosis Microcytosis Macrocytosis Anticoagulation Therapy Puncture Site ABG pH ABG pCO2 at Pt Temp ABG pO2 at Pt Temp ABG HCO3 ABG O2 Sat (Measured) ABG O2 Content ABG Base Excess Get Test O2 Delivery Device Oxygen Flow Rate Vent Mode Vent Rate Mechanical Rate PEEP Pressure Support Vent Sodium Potassium Chloride Carbon Dioxide Anion Gap BUN Creatinine Creat Clearance w eGFR POC Glucometer 364 Random Glucose Calcium Phosphorus Magnesium Total Bilirubin AST ALT Alkaline Phosphatase Creatine Kinase Creatine Kinase Index CK-MB (CK-2) Troponin I Total Protein Albumin Hepatitis A Ab Total Hep Bs Antigen Hep Bs Antibody Hep B Core Total Ab Hep C Ab Diagnostic ASSESSMENT/PLAN: Prolonged CP arrest with Severe Anoxic Brain injury: likely will progress to brain IDDM Diastolic CHF Pulmonary HTN ESRD on HD Obstructive Sleep Apnea Gout Suspected Aspiration Pneumonitis Multifactorial Shock Lactic Acidosis AC mode of vent Folow Neuro exam: he is still overbreathing the ventilator ABX per ID Pressors to maintain MAP > 65 HD per Renal to Overall prognosis appears grim for meaningful survival. To have discussions with and family. Requires ICU monitoring Dr Musa Critical care time spent in reviewing chart, evaluating patient and formulating plan - 36 minutes.
[2018-08-08] MEDS ORDERED: DEXTROSE 5%-WATER 100 ML IVPB ONE (11:19)
[2018-08-08] MEDS ORDERED: CEFEPIME HCL 1 GM VIAL (RESTRICTED TO ID) ONE (11:19)
[2018-08-08] MEDS: CEFEPIME 1 GM in DEXTROSE 5%-WATER 100 ML IVPB SCH (11:29)
[2018-08-08] MEDS: MUPIROCIN 2% TOPICAL OINTMENT FOR DECOLONIZATION NS SCH ×2 (11:29→21:34)
[2018-08-08] MEDS: PANTOPRAZOLE SODIUM 40 MG VIAL IVPUSH SCH (11:30)
--- NOTE | 2018-08-08 11:36 | PN ---
Physical Exam: SUBJECTIVE: Patient seen and examined at bedside. Warming restarted last night. No other acute events overnight. Was given Vasopressin yesterday, but currently on Levophed 5 this AM. OBJECTIVE: Vital Signs Period Temp Pulse Resp BP Sys/[place] Pulse Ox Last 24 Hr 91.2 F-99.6 F 59-113 18-22 92-148/60-93 100 GENERAL: Intubated and off sedation. EYES: Pupils b/l fixed and dilated, absent gag reflex ENT: ETT-18>>22/500/100/5/5. NG tube in place. LUNGS: Mechanical ventilationl scattered rhonchi b/l. HEART: Regular rate and rhythm, S1, S2. No murmurs noted. ABDOMEN: Soft, NT/ND. EXTREMITIES: 2+ pulses, warm, well-perfused, no edema. NEUROLOGICAL: Not responsive off sedation. Grimace to pain ABSENT. CBCD WBC 15.0 K/mm3 (4.0-10.0) H 08/08/18 05:30 RBC 3.66 M/mm3 (4.00-5.60) L 08/08/18 05:30 Hgb 11.1 GM/dL (11.7-16.9) L 08/08/18 05:30 Hct 34.7 % (35.4-49) L 08/08/18 05:30 MCV 94.7 fl (80-96) 08/08/18 05:30 MCHC 32.1 g/dl (32.0-35.9) 08/08/18 05:30 RDW 16.6 % (11.9-15.9) H 08/08/18 05:30 Plt Count 185 K/MM3 (134-434) D 08/08/18 05:30 MPV 10.1 fl (7.5-11.1) 08/08/18 05:30 CMP Sodium 134 mmol/L (136-145) L 08/08/18 05:30 Potassium 4.1 mmol/L (3.5-5.1) 08/08/18 05:30 Chloride 97 mmol/L (98-107) L 08/08/18 05:30 Carbon Dioxide 24 mmol/L (21-32) 08/08/18 05:30 Anion Gap 13 MMOL/L (8-16) 08/08/18 05:30 BUN 38 mg/dL (7-18) H 08/08/18 05:30 Creatinine 4.1 mg/dL (0.55-1.3) H 08/08/18 05:30 Creat Clearance w eGFR 15.40 (>60) 08/08/18 05:30 Calcium 7.5 mg/dL (8.5-10.1) L 08/08/18 05:30 Total Bilirubin 0.4 mg/dL (0.2-1) 08/08/18 05:30 AST 147 U/L (15-37) H 08/08/18 05:30 ALT 65 U/L (13-61) H 08/08/18 05:30 Alkaline Phosphatase 153 U/L (45-117) H 08/08/18 05:30 Total Protein 5.9 g/dl (6.4-8.2) L 08/08/18 05:30 Albumin 2.3 g/dl (3.4-5.0) L 08/08/18 05:30 Active Medications Chlorhexidine Gluconate (Hibiclens For Decolonization -) 1 applic TP HS [facility] Last Admin: 08/07/18 21:32 Dose: 1 applic Norepinephrine Bitartrate 4, (000 mcg/ Dextrose) 500 mls @ 37.5 mls/hr IV TITR [facility]; Protocol Last Titration: 08/07/18 23:33 Dose: 5 mcg/min, 37.5 mls/hr Vasopressin 50 units/ Sodium (Chloride) 100 mls @ 4 mls/hr IVPB TITR [facility]; Protocol Last Admin: 08/08/18 03:07 Dose: Not Given Clindamycin Phosphate (Cleocin 600 Mg Premix Ivpb -) 600 mg in 50 mls @ 100 mls /hr IVPB Q8H-IV [facility]; Protocol Last Admin: 08/08/18 02:30 Dose: 100 mls/hr Cefepime HCl 1 gm/ Dextrose 100 mls @ 200 mls/hr IVPB DAILY [facility] Last Admin: 08/07/18 09:05 Dose: 200 mls/hr Insulin Aspart (Novolog Vial Sliding Scale -) 1 vial SQ ACHS [facility]; Protocol Last Admin: 08/08/18 06:43 Dose: 12 unit Mupirocin (Bactroban Ointment (For Decolonization) -) 1 applic NS BID [facility] Stop: 08/11/18 21:59 Last Admin: 08/07/18 21:31 Dose: 1 applic Pantoprazole Sodium (Protonix Iv) 40 mg IVPUSH DAILY [facility] Last Admin: 08/07/18 10:00 Dose: 40 mg CONSULTS: Cardio- Dr. Duarte IMAGING: * EKG (18:57:54): Wide QRS tachycardia, RBBB, HR 129, QTc 577 * EKG (20:51:20): sinus rhythm, RBBB, HR 67, QTc 481 ms ASSESSMENT/PLAN: 52M w/ pmhx of IDDM, diastolic CHF, pulmonary HTN, renal failure (on HD MWF), sleep apnea, gout presented to the ED after a cardiac arrest during dialysis CV #Post-cardiac arrest and resuscitation; likely 2/2 HD-induced hypotension, r/o infection (likely aspiration PNA) -Pt achieved ROSC after ~60 min after multiple cycles of epi -Cont Levophed GTT wean off Vasopressin GTT maintain MAP >65 -Currently on hypothermia protocol; maintain at 33 degrees C [id number] (Stop at 10pm) -Trops neg x1, will repeat trops; EKG noted above -Cardio consulted -Echo ordered, cont cardiac monitoring #Lactic Acidosis; resolved. #Chronic diastolic CHF; stable with HD. #HTN/HLD -hold HTN meds due to hypotension -cont statin RESP #Aspiration PNA likely -Intubated, off sedation, with Fentanyl push for pain as needed -ABx per ID RENAL #CKD on HD MWF; likely 2/2 uncontrolled IDDM -HD done yesterday (08/07); possible HD tomorrow; await nephro recs -Echo ordered -avoid nephrotoxins #Hyperkalemia; resolved, 4.1 today. -Received calcium gluconate, insulin, albuterol -repeat CMP improving K -Albuterol nebs -Per nephro- for dialysis NEURO -Not currently on sedation -Neurochecks -Fentanyl pushes for pain GI #Transaminitis -may be due to hepatic injury as a result of poor perfusion -repeat CMP in AM -Protonix IV ENDO #IDDM -hold home meds -BGM/ISS ACHS ID #Leukocytosis; improving. -BCx, UCx, U/A pending; r/o infection -Dr. Hosea (pt with multiple allergies) -Cefepime, clinda; check vanc level and re-dose Prophylaxis -SCDs/SQH -Protonix 4 mg IVP QD FEN -no IVf -replete lytes PRN (K+) -NPO Dispo - ICU -full code- Spoke with patient's sister - Princess Miguel(Pharmacist)- via Cell phone of since sister speaks better [place] than . At this time, patient is full code. Updated sister as to clinical state and prognosis being poor. No formal HCP, no legal documents in chart. Per sister will need to give family time to discuss. Visit type - Emergency Visit Emergency Visit: Yes ED Registration Date: 08/06/18 Care time: The patient presented to the Emergency Department on the above date and was hospitalized for further evaluation of their emergent condition. - New Patient This patient is new to me today: No - Critical Care Critical Care patient: Yes Total Critical Care Time (in minutes): 35 Critical Care Statement: The care of this patient involved high complexity decision making to prevent further life threatening deterioration of the patient 's condition and/or to evaluate & treat vital organ system(s) failure or risk of failure.
[2018-08-08] MEDS ORDERED: NOREPINEPHRINE BITARTRATE 4 MG/4 ML ML IV ONE (12:12)
--- NOTE | 2018-08-08 12:23 | PN ---
Progress Note (short form) - Note Progress Note: s: intubated, sedated Current Medications Chlorhexidine Gluconate (Hibiclens For Decolonization -) 1 applic TP HS [facility] Last Admin: 08/07/18 21:32 Dose: 1 applic Norepinephrine Bitartrate 4, (000 mcg/ Dextrose) 500 mls @ 37.5 mls/hr IV TITR [facility]; Protocol Last Titration: 08/07/18 23:33 Dose: 5 mcg/min, 37.5 mls/hr Vasopressin 50 units/ Sodium (Chloride) 100 mls @ 4 mls/hr IVPB TITR [facility]; Protocol Last Admin: 08/08/18 03:07 Dose: Not Given Clindamycin Phosphate (Cleocin 600 Mg Premix Ivpb -) 600 mg in 50 mls @ 100 mls /hr IVPB Q8H-IV [facility]; Protocol Last Admin: 08/08/18 11:29 Dose: 100 mls/hr Cefepime HCl 1 gm/ Dextrose 100 mls @ 200 mls/hr IVPB DAILY [facility] Last Admin: 08/08/18 11:29 Dose: 200 mls/hr Insulin Aspart (Novolog Vial Sliding Scale -) 1 vial SQ ACHS [facility]; Protocol Last Admin: 08/08/18 06:43 Dose: 12 unit Mupirocin (Bactroban Ointment (For Decolonization) -) 1 applic NS BID [facility] Stop: 08/11/18 21:59 Last Admin: 08/08/18 11:29 Dose: 1 applic Pantoprazole Sodium (Protonix Iv) 40 mg IVPUSH DAILY [facility] Last Admin: 08/08/18 11:30 Dose: 40 mg Vital Signs Period Temp Pulse Resp BP Sys/[place] Pulse Ox Last 24 Hr 91.2 F-99.6 F 59-113 18-22 92-148/60-93 100 nad, no jvd, sedated rrr s1s2 no mrg cta bl ant, vented no le edema, + upper ext edema in hands bilaterally abd nd pos bs pos dp pt no jaundice diaphoresis cxr: r pna echo 10/2014: nl lv/rv, mod lae, mild tr/pr, mild ao root dil echo 08/2015: nl lv/rv, lae, mild tr, rvsp 30-40 ecg: sr, rbbb tele: sinus a/p: 52 m hx esrd on hd, htn, dm, hld, obesity, radha, dchf, here s/p cardiac arrest. cardiac arrest, shock, resp failure: -now intubated with hypotension requiring pressors, on cooling protocol -check echo, cont tele -no signs acs or chf -cont abx per ID, infectious w/u elevate trops: -mild trop elevation but still in borderline range, not c/w acs, more likely demand from cardiac arrest -check echo chronic diastolic chf: -stable vol status with HD -check updated htn: -hold htn meds due to shock requiring pressors now hld: -continue statin esrd: -cont hd per renal hld: -continue statin when stable estimated critical care time 35 min
[2018-08-08 14:58] VITALS: BMI 40.1
[2018-08-08] MEDS ORDERED: ACETAMINOPHEN 1000 MG/100 ML VIAL (NON FORMULARY) IVPB ONE (15:24)
--- NOTE | 2018-08-08 15:48 | PN ---
Physical Exam: SUBJECTIVE: Patient seen and examined, intubated sedated, family at bedside. OBJECTIVE: Vital Signs Period Temp Pulse Resp BP Sys/[place] Pulse Ox Last 24 Hr 91.2 F-99.6 F 59-113 22-22 92-148/60-93 100 Intake & Output 08/05/18 08/06/18 08/07/18 08/08/18 23:59 23:59 23:59 23:59 Intake Total 358 596 Balance 358 596 Weight 260 lb 2.327 oz 279 lb 5.211 oz 272 lb Intake & Output 08/05/18 08/06/18 08/07/18 08/08/18 23:59 23:59 23:59 23:59 Intake Total 358 596 Balance 358 596 Weight 260 lb 2.327 oz 279 lb 5.211 oz 272 lb GENERAL: intubated sedated, morbidly obese (BMI 41), hypothermia protocol in place HEAD: Normal with no signs of trauma. EYES: pupils fixed and dilated ENT: NG tube in place, dried blood on the nostrils NECK: soft, limited exam given habitus LUNGS: decreased air entry all over, further exam limited HEART: Regular rate and rhythm, S1, S2 ABDOMEN: soft, obese, distended, hypoactive bowel sounds. EXTREMITIES: 2+ pulses, warm, well-perfused, no edema. Laboratory Results - last 24 hr 08/07/18 08/07/18 08/07/18 10:15 11:30 11:30 WBC RBC Hgb Hct MCV MCH MCHC RDW Plt Count MPV Neutrophils % (Manual) 81.0 Eosinophils % (Manual) 0.0 Anticoagulation Therapy Puncture Site ABG pH ABG pCO2 at Pt Temp ABG pO2 at Pt Temp ABG HCO3 ABG O2 Sat (Measured) ABG O2 Content ABG Base Excess Get Test O2 Delivery Device Oxygen Flow Rate Vent Mode Vent Rate Mechanical Rate PEEP Pressure Support Vent Sodium Potassium Chloride Carbon Dioxide Anion Gap BUN Creatinine Creat Clearance w eGFR POC Glucometer Random Glucose Calcium Phosphorus Magnesium Total Bilirubin AST ALT Alkaline Phosphatase Creatine Kinase Creatine Kinase Index CK-MB (CK-2) Troponin I Total Protein Albumin Hepatitis A Ab Total Negative Hep Bs Antigen Negative Hep Bs Antibody Non reactive Hep B Core Total Ab Negative Hep C Ab Diagnostic <0.1 08/07/18 08/07/18 08/07/18 13:10 13:10 16:50 WBC RBC Hgb Hct MCV MCH MCHC RDW Plt Count MPV Neutrophils % (Manual) Eosinophils % (Manual) Anticoagulation Therapy No Result Required. Puncture Site Right radial ABG pH 7.35 ABG pCO2 at Pt Temp 43.4 ABG pO2 at Pt Temp 100 ABG HCO3 23.2 ABG O2 Sat (Measured) 97.7 ABG O2 Content 16.8 ABG Base Excess -1.9 Get Test Positive O2 Delivery Device Mec.vent Oxygen Flow Rate 80 Vent Mode No Result Required. Vent Rate 22 Mechanical Rate No Result Required. PEEP 5.0 Pressure Support Vent No Result Required. Sodium 140 Potassium 3.7 Chloride 100 Carbon Dioxide 27 Anion Gap 13 BUN 25 H Creatinine 2.8 H Creat Clearance w eGFR 23.92 POC Glucometer Random Glucose 314 H* Calcium 7.7 L Phosphorus 4.0 Magnesium 2.1 Total Bilirubin 0.5 AST 145 H ALT 86 H Alkaline Phosphatase 185 H Creatine Kinase 460 H Creatine Kinase Index 3.1 CK-MB (CK-2) 14.7 H Troponin I 0.48 H Total Protein 6.9 Albumin 2.8 L Hepatitis A Ab Total Hep Bs Antigen Hep Bs Antibody Hep B Core Total Ab Hep C Ab Diagnostic 08/07/18 08/07/18 08/08/18 17:53 21:36 05:30 WBC RBC Hgb Hct MCV MCH MCHC RDW Plt Count MPV Neutrophils % (Manual) Eosinophils % (Manual) Anticoagulation Therapy Puncture Site ABG pH ABG pCO2 at Pt Temp ABG pO2 at Pt Temp ABG HCO3 ABG O2 Sat (Measured) ABG O2 Content ABG Base Excess Get Test O2 Delivery Device Oxygen Flow Rate Vent Mode Vent Rate Mechanical Rate PEEP Pressure Support Vent Sodium 134 L Potassium 4.1 Chloride 97 L Carbon Dioxide 24 Anion Gap 13 BUN 38 H Creatinine 4.1 H Creat Clearance w eGFR 15.40 POC Glucometer 311 387 Random Glucose 410 H* Calcium 7.5 L Phosphorus 5.9 H Magnesium 2.2 Total Bilirubin 0.4 AST 147 H ALT 65 H Alkaline Phosphatase 153 H Creatine Kinase 401 H Creatine Kinase Index 3.3 CK-MB (CK-2) 13.3 H Troponin I 0.33 H Total Protein 5.9 L Albumin 2.3 L Hepatitis A Ab Total Hep Bs Antigen Hep Bs Antibody Hep B Core Total Ab Hep C Ab Diagnostic 08/08/18 08/08/18 08/08/18 05:30 06:39 12:23 WBC 15.0 H RBC 3.66 L Hgb 11.1 L Hct 34.7 L MCV 94.7 MCH 30.4 MCHC 32.1 RDW 16.6 H Plt Count 185 D MPV 10.1 Neutrophils % (Manual) Eosinophils % (Manual) Anticoagulation Therapy Puncture Site ABG pH ABG pCO2 at Pt Temp ABG pO2 at Pt Temp ABG HCO3 ABG O2 Sat (Measured) ABG O2 Content ABG Base Excess Get Test O2 Delivery Device Oxygen Flow Rate Vent Mode Vent Rate Mechanical Rate PEEP Pressure Support Vent Sodium Potassium Chloride Carbon Dioxide Anion Gap BUN Creatinine Creat Clearance w eGFR POC Glucometer 364 295 Random Glucose Calcium Phosphorus Magnesium Total Bilirubin AST ALT Alkaline Phosphatase Creatine Kinase Creatine Kinase Index CK-MB (CK-2) Troponin I Total Protein Albumin Hepatitis A Ab Total Hep Bs Antigen Hep Bs Antibody Hep B Core Total Ab Hep C Ab Diagnostic Active Medications Generic Name Dose Route Start Last Admin Trade Name Freq PRN Reason Stop Dose Admin Chlorhexidine Gluconate 1 applic 08/06/18 22:00 08/07/18 21:32 Hibiclens For Decolonization - TP 1 applic HS ELEONORA Administration Norepinephrine Bitartrate 4, 500 mls @ 37.5 mls/hr 08/06/18 19:30 08/07/18 23 :33 000 mcg/ Dextrose IV 5 mcg/min TITR ELEONORA 37.5 mls/hr Titration Protocol 5 MCG/MIN Vasopressin 50 units/ Sodium 100 mls @ 4 mls/hr 08/07/18 00:15 08/08/18 03:07 Chloride IVPB Not Given TITR ELEONORA Protocol 2 UNITS/HR Clindamycin Phosphate 600 mg in 50 mls @ 100 mls/hr 08/07/18 10:00 08/08/18 11:29 Cleocin 600 Mg Premix Ivpb - IVPB 100 mls/hr Q8H-IV ELEONORA Administration Protocol Cefepime HCl 1 gm/ Dextrose 100 mls @ 200 mls/hr 08/07/18 10:00 08/08/18 11: 29 IVPB 200 mls/hr DAILY ELEONORA Administration Insulin Aspart 1 vial 08/08/18 06:41 08/08/18 12:29 Novolog Vial Sliding Scale - SQ 8 unit ACHS ELEONORA Administration Protocol Mupirocin 1 applic 08/06/18 22:00 08/08/18 11:29 Bactroban Ointment (For Decolonization) - NS 08/11/18 21:59 1 applic BID ELEONORA Administration Pantoprazole Sodium 40 mg 08/07/18 10:00 08/08/18 11:30 Protonix Iv IVPUSH 40 mg DAILY ELEONORA Administration Microbiology 08/06/18 20:10 Blood - Peripheral Venous Blood Culture - Preliminary Pending Organism 08/06/18 20:10 Blood - Peripheral Venous Blood Culture - Preliminary NO GROWTH OBTAINED AFTER 24 HOURS, INCUBATION TO CONTINUE FOR 4 DAYS. ASSESSMENT/PLAN: 52 yom with PMhx of IDDM, diastolic CHF, pulmonary HTN, renal failure (on HD MWF ), sleep apnea, gout, recently advised midodrine with HD, admitted with cardiac arrest (s/p almost 1 hour of CPR) -Cardiac arrest -Acute hypoxic respiratory failure -Shock, r/o sepsis, unlikely cardiogenic -Suspected aspiration PNA -GPC bacteremia 1/2 -Hyperkalemia -Acute combined respiratory metabolic acidosis -Hyperglycemia -Hyperkalemia -Chronic diastolic CHF -IDDM -Pulmonary HTN -ESRD on HD -MJ -Gout Plan: Intubated. Off vasopressin. Titrate norepinephrine for MAP >65. s/p hypothermia protocol, now with passive rewarming. HD per renal. Monitor electrolytes. ID input noted. Cefepime/vanco/clindamycin. Blood cx 1/2 with GPC, follow up. Hold Anti-HTN. Discuss with ICU about tube feeds Add levemir 10 units daily Pupils fixed and dilated. Prognosis grim. Readdress with family. Palliative care consult. Ongoing discussion with family [id number] Dispo ICU level of care. Plan discussed with nursing, care co-ordinated with ICU team. Total critical care time spent 36 min. Visit type - Emergency Visit Emergency Visit: Yes ED Registration Date: 08/06/18 Care time: The patient presented to the Emergency Department on the above date and was hospitalized for further evaluation of their emergent condition. - New Patient This patient is new to me today: No - Critical Care Critical Care patient: Yes Total Critical Care Time (in minutes): 36 Critical Care Statement: The care of this patient involved high complexity decision making to prevent further life threatening deterioration of the patient 's condition and/or to evaluate & treat vital organ system(s) failure or risk of failure.
[2018-08-08] MEDS: INSULIN (LEVEMIR) 100 UNITS/ML UNITS SQ SCH (18:19)
[2018-08-08] MEDS ORDERED: ACETAMINOPHEN 325 MG TABLET (FP) PO ONE (21:22)
[2018-08-08] MEDS: CHLORHEXIDINE GLUCONATE 4% CLEANSER FOR DECOLONIZATION TP SCH (21:34)
[2018-08-09] MEDS ORDERED: HYDROCORTISONE SOD SUCCINATE 100 MG/2 ML VIAL IVPB SCH (02:00)
[2018-08-09] MEDS: VASOPRESSIN 50 UNITS in SODIUM CHLORIDE 97.5 ML IVPB SCH (02:50)
[2018-08-09] MEDS: CLINDAMYCIN 600MG PREMIX IVPB 600 MG/50 ML BAG IVPB SCH ×3 (02:54→17:37)
[2018-08-09 06:33] LABS: BASO % 0.1 % (0-2.0); EOS % 0.1 % (0-4.5); HEMATOCRIT 34.6 % (35.4-49); HEMOGLOBIN 10.7 GM/dL (11.7-16.9); LYMPH % 5.3 % (8-40); MCH 30.1 pg (25.7-33.7); MCHC 30.9 g/dl (32.0-35.9); MEAN CELL VOLUME 97.6 fl (80-96); MEAN PLT VOLUME 10.4 fl (7.5-11.1); NEUT % 85.5 % (42.8-82.8); PLATELET COUNT 196 K/MM3 (134-434); RBC 3.55 M/mm3 (4.00-5.60); RDW 17.4 % (11.9-15.9); WHITE BLOOD COUNT 22.3 K/mm3 (4.0-10.0)
[2018-08-09] MEDS: INSULIN SLIDING SCALE (NOVOLOG) 1 VIAL SQ SCH ×3 (07:00→17:23)
[2018-08-09 07:10] LABS: ALBUMIN 2.2 g/dl (3.4-5.0); ALK PHOS 179 U/L (45-117); ANION GAP 15 MMOL/L (8-16); BILIRUBIN,TOTAL 0.6 mg/dL (0.2-1); BLOOD UREA NITROGEN 53 mg/dL (7-18); CALCIUM 8.6 mg/dL (8.5-10.1); CHLORIDE 93 mmol/L (98-107); CO2 22 mmol/L (21-32); CREATININE 5.2 mg/dL (0.55-1.3); MAGNESIUM 2.6 mg/dL (1.8-2.4); POTASSIUM 5.2 mmol/L (3.5-5.1); SGOT/AST 244 U/L (15-37); SGPT/ALT 55 U/L (13-61); SODIUM 131 mmol/L (136-145)
[2018-08-09 07:15] LABS: GLUCOSE,RANDOM 414 mg/dL (74-106)
--- NOTE | 2018-08-09 08:13 | PN ---
Physical Exam: SUBJECTIVE: Patient seen and examined at bedside. No acute events overnight, pt remains stable on vent. Neurologically, pt has no pupillary response b/l or gag reflex. OBJECTIVE: Vital Signs Period Temp Pulse Resp BP Sys/[place] Pulse Ox Last 24 Hr 97.2 F-100.6 F 74-99 21-22 89-112/52-67 97 GENERAL: Intubated and off sedation. EYES: Pupils b/l fixed and dilated, absent corneal, gag, and cough reflex ENT: ETT-18>>22/500/100/5/5. NG tube in place. LUNGS: Mechanical ventilationl scattered rhonchi b/l. HEART: Regular rate and rhythm, S1, S2. No murmurs noted. ABDOMEN: Soft, NT/ND. EXTREMITIES: 2+ pulses, warm, well-perfused, no edema. NEUROLOGICAL: Not responsive off sedation. Grimace to pain ABSENT. CBC, BMP 08/09/18 05:30 08/09/18 05:30 Active Medications Chlorhexidine Gluconate (Hibiclens For Decolonization -) 1 applic TP HS ELEONORA Last Admin: 08/08/18 21:34 Dose: 1 applic Norepinephrine Bitartrate 4, (000 mcg/ Dextrose) 500 mls @ 37.5 mls/hr IV TITR ELEONORA; Protocol Last Titration: 08/09/18 06:00 Dose: 7 mcg/min, 52.5 mls/hr Vasopressin 50 units/ Sodium (Chloride) 100 mls @ 4 mls/hr IVPB TITR ELEONORA; Protocol Last Admin: 08/09/18 02:50 Dose: Not Given Clindamycin Phosphate (Cleocin 600 Mg Premix Ivpb -) 600 mg in 50 mls @ 100 mls /hr IVPB Q8H-IV ELEONORA; Protocol Last Admin: 08/09/18 02:54 Dose: 100 mls/hr Cefepime HCl 1 gm/ Dextrose 100 mls @ 200 mls/hr IVPB DAILY ELEONORA Last Admin: 08/08/18 11:29 Dose: 200 mls/hr Insulin Aspart (Novolog Vial Sliding Scale -) 1 vial SQ ACHS ELEONORA; Protocol Last Admin: 08/08/18 21:33 Dose: 10 unit Insulin Detemir (Levemir Vial) 10 units SQ DAILY ELEONORA Last Admin: 08/08/18 18:19 Dose: 10 units Mupirocin (Bactroban Ointment (For Decolonization) -) 1 applic NS BID [facility] Stop: 08/11/18 21:59 Last Admin: 08/08/18 21:34 Dose: 1 applic Pantoprazole Sodium (Protonix Iv) 40 mg IVPUSH DAILY [facility] Last Admin: 08/08/18 11:30 Dose: 40 mg CONSULTS: Cardio- Dr. Duarte ID- Dr. Jc Neuro- Dr. Loomis IMAGING: * EKG (18:57:54): Wide QRS tachycardia, RBBB, HR 129, QTc 577 * EKG (20:51:20): sinus rhythm, RBBB, HR 67, QTc 481 ms ASSESSMENT/PLAN: 52M w/ pmhx of IDDM, diastolic CHF, pulmonary HTN, renal failure (on HD MWF), sleep apnea, gout presented to the ED after a cardiac arrest during dialysis CV #Post-cardiac arrest and resuscitation; likely 2/2 HD-induced hypotension, r/o infection (likely aspiration PNA) -Pt achieved ROSC after ~60 min after multiple cycles of epi -Cont Levophed GTT for pressor support; maintain MAP >65 -Cardio consulted -Echo ordered, cont cardiac monitoring #Lactic Acidosis; resolved. #Chronic diastolic CHF; stable with HD. #HTN/HLD -hold HTN meds due to hypotension -cont statin RESP #Aspiration PNA -Intubated, off sedation, with Fentanyl push for pain as needed -ABx per ID -Pt is making spontaneous breaths on CPAP with RR ~6; sign of brainstem function still present, although minimal RENAL #CKD on HD MWF; likely 2/2 uncontrolled IDDM -Last HD done on 08/07; Per nephro, will hold off on HD for now per family request. Organ donation team contacted and pt's data given to clinical for evaluation -Echo ordered -Avoid nephrotoxins #Hyperkalemia; Elevated, K 5.2 today -will likely need HD NEURO -Not currently on sedation -Neurochecks -Fentanyl pushes for pain -Neuro consulted to evaluate neurological function; will obtain head CT GI #Transaminitis -may be due to hepatic injury as a result of poor perfusion -repeat CMP in AM -Protonix IV ENDO #IDDM -hold home meds -Levemir 10U QD -BGM/ISS ACHS ID #Leukocytosis; improving. -BCx +staph coag neg; per ID, suspect contamination. Follow up final cultures. -Per ID, cont Cefepime, clinda. No vancomycin needed Prophylaxis -SCDs/SQH -Protonix 4 mg IVP QD FEN -no IVf -replete lytes PRN (K+) -NPO Dispo -cont to monitor in ICU -DNR; Spoke to pt's sister, Princess, via phone as well as pt's at bedside. Pt is a registered organ donor according to sister and family is requesting to proceed forward with organ donation. Awaiting call back from organ donor foundation. Visit type - Emergency Visit Emergency Visit: Yes ED Registration Date: 08/06/18 Care time: The patient presented to the Emergency Department on the above date and was hospitalized for further evaluation of their emergent condition. - New Patient This patient is new to me today: No - Critical Care Critical Care patient: Yes Total Critical Care Time (in minutes): 35 Critical Care Statement: The care of this patient involved high complexity decision making to prevent further life threatening deterioration of the patient 's condition and/or to evaluate & treat vital organ system(s) failure or risk of failure.
[2018-08-09 08:55] LABS: PHOSPHOROUS > 9.0 mg/dL (2.5-4.9)
[2018-08-09] MEDS ORDERED: CEFEPIME HCL 1 GM VIAL (RESTRICTED TO ID) ONE (09:16)
[2018-08-09] MEDS ORDERED: DEXTROSE 5%-WATER 100 ML IVPB ONE (09:16)
--- NOTE | 2018-08-09 09:17 | PN ---
Progress Note (short form) - Note Progress Note: intubated unresponsive Vital Signs Period Temp Pulse Resp BP Sys/[place] Pulse Ox Last 24 Hr 97.2 F-100.6 F 74-99 21-22 89-112/52-67 97 cor-rrr lungs decreased bs at bases abd soft,nt ext no edema +avf left arm CBC, BMP 08/09/18 05:30 08/09/18 05:30 Microbiology 08/06/18 20:10 Blood - Peripheral Venous Blood Culture - Preliminary Staphylococcus Coagulase Neg 08/06/18 20:10 Blood - Peripheral Venous Blood Culture - Preliminary NO GROWTH OBTAINED AFTER 48 HOURS, INCUBATION TO CONTINUE FOR 3 DAYS. Current Medications Chlorhexidine Gluconate (Hibiclens For Decolonization -) 1 applic TP HS ELEONORA Last Admin: 08/08/18 21:34 Dose: 1 applic Norepinephrine Bitartrate 4, (000 mcg/ Dextrose) 500 mls @ 37.5 mls/hr IV TITR ELEONORA; Protocol Last Titration: 08/09/18 06:00 Dose: 7 mcg/min, 52.5 mls/hr Vasopressin 50 units/ Sodium (Chloride) 100 mls @ 4 mls/hr IVPB TITR ELEONORA; Protocol Last Admin: 08/09/18 02:50 Dose: Not Given Clindamycin Phosphate (Cleocin 600 Mg Premix Ivpb -) 600 mg in 50 mls @ 100 mls /hr IVPB Q8H-IV ELEONORA; Protocol Last Admin: 08/09/18 02:54 Dose: 100 mls/hr Cefepime HCl 1 gm/ Dextrose 100 mls @ 200 mls/hr IVPB DAILY ELEONORA Last Admin: 08/08/18 11:29 Dose: 200 mls/hr Insulin Aspart (Novolog Vial Sliding Scale -) 1 vial SQ ACHS ELEONORA; Protocol Last Admin: 08/08/18 21:33 Dose: 10 unit Insulin Detemir (Levemir Vial) 10 units SQ DAILY ELEONORA Last Admin: 08/08/18 18:19 Dose: 10 units Mupirocin (Bactroban Ointment (For Decolonization) -) 1 applic NS BID E[facility]ONORA Stop: 08/11/18 21:59 Last Admin: 08/08/18 21:34 Dose: 1 applic Pantoprazole Sodium (Protonix Iv) 40 mg IVPUSH DAILY ELEONORA Last Admin: 08/08/18 11:30 Dose: 40 mg a/p s/p arrest aspiration pneumonia bacteremia-SCN- suspect contaminant- one bottle esrd/hd diabetes pen allergy- rash, has taken keflex in the past cipro allergy - rash continue clindamycin/cefepime no need for further vancomycin overall prognosis is poor Problem List - Problems (1) Cardiac arrest Code(s): I46.9 - CARDIAC ARREST, CAUSE UNSPECIFIED (2) Aspiration pneumonia Code(s): J69.0 - PNEUMONITIS DUE TO INHALATION OF FOOD AND VOMIT (3) ESRD on hemodialysis Code(s): N18.6 - END STAGE RENAL DISEASE; Z99.2 - DEPENDENCE ON RENAL DIALYSIS (4) Diabetes Code(s): E11.9 - TYPE 2 DIABETES MELLITUS WITHOUT COMPLICATIONS (5) Allergy to multiple antibiotics Code(s): Z88.1 - ALLERGY STATUS TO OTHER ANTIBIOTIC AGENTS STATUS
[2018-08-09] MEDS: PANTOPRAZOLE SODIUM 40 MG VIAL IVPUSH SCH (09:24)
[2018-08-09] MEDS: CEFEPIME 1 GM in DEXTROSE 5%-WATER 100 ML IVPB SCH (09:24)
[2018-08-09] MEDS: MUPIROCIN 2% TOPICAL OINTMENT FOR DECOLONIZATION NS SCH ×2 (09:36→21:17)
[2018-08-09] MEDS: INSULIN (LEVEMIR) 100 UNITS/ML UNITS SQ SCH (09:51)
[2018-08-09 09:56] LABS: ANISOCYTOSIS 1+; MACROCYTOSIS 1+; PLATELET ESTIMATE NORMAL
--- NOTE | 2018-08-09 10:06 | PN ---
Progress Note, Physician Chief Complaint: cardiac arrest History of Present Illness: intubated. no sedation--not responsive - Current Medication List Current Medications: Active Medications Chlorhexidine Gluconate (Hibiclens For Decolonization -) 1 applic TP HS [facility] Last Admin: 08/08/18 21:34 Dose: 1 applic Heparin Sodium (Porcine) (Heparin -) 5,000 unit SQ TID [facility] Norepinephrine Bitartrate 4, (000 mcg/ Dextrose) 500 mls @ 37.5 mls/hr IV TITR ELEONORA; Protocol Last Titration: 08/09/18 09:24 Dose: 10 mcg/min, 75 mls/hr Vasopressin 50 units/ Sodium (Chloride) 100 mls @ 4 mls/hr IVPB TITR ELEONORA; Protocol Last Admin: 08/09/18 02:50 Dose: Not Given Clindamycin Phosphate (Cleocin 600 Mg Premix Ivpb -) 600 mg in 50 mls @ 100 mls /hr IVPB Q8H-IV ELEONORA; Protocol Last Admin: 08/09/18 09:24 Dose: 100 mls/hr Cefepime HCl 1 gm/ Dextrose 100 mls @ 200 mls/hr IVPB DAILY [facility] Last Admin: 08/09/18 09:24 Dose: 200 mls/hr Insulin Aspart (Novolog Vial Sliding Scale -) 1 vial SQ ACHS [facility]; Protocol Last Admin: 08/09/18 07:00 Dose: 14 unit Insulin Detemir (Levemir Vial) 10 units SQ DAILY [facility] Last Admin: 08/09/18 09:51 Dose: 10 units Mupirocin (Bactroban Ointment (For Decolonization) -) 1 applic NS BID [facility] Stop: 08/11/18 21:59 Last Admin: 08/09/18 09:36 Dose: 1 applic Pantoprazole Sodium (Protonix Iv) 40 mg IVPUSH DAILY [facility] Last Admin: 08/09/18 09:24 Dose: 40 mg - Objective Vital Signs: Vital Signs Temperature 97.2 F L 08/09/18 07:00 Pulse Rate 77 08/09/18 09:24 Respiratory Rate 22 H 08/09/18 08:11 Blood Pressure 74/47 L 08/09/18 09:24 O2 Sat by Pulse Oximetry (%) 97 08/08/18 21:00 Constitutional: Yes: No Distress, Calm, Obese Cardiovascular: Yes: Regular Rate and Rhythm, S1, S2. No: Gallop, Murmur Respiratory: Yes: Regular, CTA Bilaterally (anteriorly). No: Accessory Muscle Use, Rales, Wheezes Extremities: Yes: Cold Edema: No Neurological: No: Alert, Oriented Psychiatric: No: Agitated Labs: CBC, BMP 08/09/18 05:30 08/09/18 05:30 INR, PTT INR 1.10 (0.83-1.09) H 08/06/18 19:10 Assessment/Plan cxr: r pna Echo 02/25: TDS. nl LV/EF. RV mildly enlarged with mild decr RVSF. nl LA. mild AI MPI 2017 (cristal): no STs. technically limited iamges/patchy tracer uptake. medium sized reversible defect mid-IW/inferolateral. nl EF, nl LV cavity size/ no TID ecg: sr, rbbb tele: a/p: 52 m hx esrd on hd, htn, dm, hld, obesity, mj, dchf, here s/p cardiac arrest. PEA cardiac arrest, shock, resp failure, anoxic brain injury: -now intubated with hypotension requiring pressors, s/p cooling protocol -hemody stable but requiring levophed--continue -cont tele -no signs acs or chf -cont abx per ID, infectious w/u possible underlying CAD, elevated trops: - pt with prior MPI technically very limited, with reversible defect in inferior /inferolateral wall possibly ischemia. has had no anginal sx's and hence was medically managed - trop acutely adolfo here however peak 0.5 (indeterminate range) and flat trend-- likely Type II ME from cardiac arrest with transient hypoperfusion, +/- sec to shocks (if given) chronic diastolic chf, pulm HTN with RV dysfunction: -had prolonged stay here-->[place] several years ago with severe CHF and severe pulm HTN/RV failure -treated there and HD initiated, with echoes showing improvement in RV size/ function since (only mildly down) -serial echoes stable as of last in 2018 -decilned w/u of prior MJ dx -stable vol status with HD -check updated htn: -hold htn meds due to shock requiring pressors now DM on insulin: -per primary team esrd: -cont hd per renal hld: -continue statin when stable estimated crit care time in pt exam, data review, formulating mgmt plan of potentially life-threatening complications = 35 min family at bedside, aware of grave prognosis. they are awaiting brain eval by neuro, considering withdrawal of care.
--- NOTE | 2018-08-09 10:27 | EKG ---
Test Reason : Blood Pressure : / mmHG Vent. Rate : 067 BPM Atrial Rate : 067 BPM P-R Int : 154 ms QRS Dur : 148 ms QT Int : 456 ms P-R-T Axes : -71 061 054 degrees QTc Int : 481 ms UNUSUAL P AXIS, POSSIBLE ECTOPIC ATRIAL RHYTHM RIGHT BUNDLE BRANCH BLOCK ABNORMAL ECG WHEN COMPARED WITH ECG OF 06-AUG-2018 18:57, ECTOPIC ATRIAL RHYTHM HAS REPLACED WIDE QRS TACHYCARDIA VENT. RATE HAS DECREASED BY 62 BPM Confirmed by AMRIT GONZALEZ MD ([id number]) on 08/09/2018 10:27:26 AM Referred By: Confirmed By:AMRIT GONZALEZ MD
--- NOTE | 2018-08-09 10:54 | EKG ---
Test Reason : Blood Pressure : / mmHG Vent. Rate : 129 BPM Atrial Rate : 153 BPM P-R Int : 000 ms QRS Dur : 138 ms QT Int : 394 ms P-R-T Axes : 000 258 047 degrees QTc Int : 577 ms WIDE QRS TACHYCARDIA RIGHT BUNDLE BRANCH BLOCK ABNORMAL ECG WHEN COMPARED WITH ECG OF 17-AUG-2015 14:59, WIDE QRS TACHYCARDIA IS PRESENT VENT. RATE HAS INCREASED BY 53 BPM Confirmed by LISA HOLLOWAY, AMRIT ([id number]) on 08/09/2018 10:54:12 AM Referred By: Confirmed By:AMRIT GONZALEZ MD
--- NOTE | 2018-08-09 12:27 | PN ---
Progress Note, Physician History of Present Illness: Pt seen and examined at bedside. He was admitted as a cardiac arrest on Thursday evening. Pt is in the ICU. He is not responding to stimuli or waking up. Per the chart the arrest lasted for about 50 minutes. - Current Medication List Current Medications: Active Medications Chlorhexidine Gluconate (Hibiclens For Decolonization -) 1 applic TP HS ELEONORA Last Admin: 08/08/18 21:34 Dose: 1 applic Heparin Sodium (Porcine) (Heparin -) 5,000 unit SQ TID ELEONORA Norepinephrine Bitartrate 4, (000 mcg/ Dextrose) 500 mls @ 37.5 mls/hr IV TITR ELEONORA; Protocol Last Titration: 08/09/18 09:24 Dose: 10 mcg/min, 75 mls/hr Vasopressin 50 units/ Sodium (Chloride) 100 mls @ 4 mls/hr IVPB TITR ELEONORA; Protocol Last Admin: 08/09/18 02:50 Dose: Not Given Clindamycin Phosphate (Cleocin 600 Mg Premix Ivpb -) 600 mg in 50 mls @ 100 mls /hr IVPB Q8H-IV ELEONORA; Protocol Last Admin: 08/09/18 09:24 Dose: 100 mls/hr Cefepime HCl 1 gm/ Dextrose 100 mls @ 200 mls/hr IVPB DAILY ELEONORA Last Admin: 08/09/18 09:24 Dose: 200 mls/hr Insulin Aspart (Novolog Vial Sliding Scale -) 1 vial SQ ACHS ELEONORA; Protocol Last Admin: 08/09/18 11:32 Dose: 14 unit Insulin Detemir (Levemir Vial) 10 units SQ DAILY ELEONORA Last Admin: 08/09/18 09:51 Dose: 10 units Mupirocin (Bactroban Ointment (For Decolonization) -) 1 applic NS BID ELEONORA Stop: 08/11/18 21:59 Last Admin: 08/09/18 09:36 Dose: 1 applic Pantoprazole Sodium (Protonix Iv) 40 mg IVPUSH DAILY ELEONORA Last Admin: 08/09/18 09:24 Dose: 40 mg - Objective Vital Signs: Vital Signs Temperature 97.2 F L 08/09/18 07:00 Pulse Rate 77 08/09/18 09:24 Respiratory Rate 22 H 08/09/18 11:05 Blood Pressure 74/47 L 08/09/18 09:24 O2 Sat by Pulse Oximetry (%) 97 08/08/18 21:00 Constitutional: Yes: No Distress Eyes: Yes: Other (pupils non reactive) Neck: Yes: Supple Cardiovascular: Yes: S1, S2 Respiratory: Yes: Mechanically Ventilated Gastrointestinal: Yes: Soft, Abdomen, Obese Genitourinary: Yes: Incontinence Musculoskeletal: Yes: Muscle Weakness Edema: LUE: Trace, RUE: Trace, LLE: Trace, RLE: Trace Integumentary: Yes: WNL Neurological: Yes: Lethargy, Unresponsive Labs: CBC, BMP 08/09/18 05:30 08/09/18 05:30 INR, PTT INR 1.10 (0.83-1.09) H 08/06/18 19:10 - ....Imaging Chest X-ray: Report Reviewed Problem List - Problems (1) Cardiac arrest Code(s): I46.9 - CARDIAC ARREST, CAUSE UNSPECIFIED (2) ESRD on hemodialysis Code(s): N18.6 - END STAGE RENAL DISEASE; Z99.2 - DEPENDENCE ON RENAL DIALYSIS (3) Anemia Code(s): D64.9 - ANEMIA, UNSPECIFIED Qualifiers: Anemia type: iron deficiency anemia due to chronic blood loss Qualified Code(s): D50.0 - Iron deficiency anemia secondary to blood loss (chronic) (4) CHF (congestive heart failure) Code(s): I50.9 - HEART FAILURE, UNSPECIFIED Assessment/Plan Current Medications Generic Name Dose Route Start Last Admin Trade Name Freq PRN Reason Stop Dose Admin Chlorhexidine Gluconate 1 applic 08/06/18 22:00 08/08/18 21:34 Hibiclens For Decolonization - TP 1 applic HS ELEONORA Administration Heparin Sodium (Porcine) 5,000 unit 08/09/18 14:00 Heparin - SQ TID ELEONORA Norepinephrine Bitartrate 4, 500 mls @ 37.5 mls/hr 08/06/18 19:30 08/09/18 09 :24 000 mcg/ Dextrose IV 10 mcg/min TITR ELEONORA 75 mls/hr Titration Protocol 5 MCG/MIN Vasopressin 50 units/ Sodium 100 mls @ 4 mls/hr 08/07/18 00:15 08/09/18 02:50 Chloride IVPB Not Given TITR ELEONORA Protocol 2 UNITS/HR Clindamycin Phosphate 600 mg in 50 mls @ 100 mls/hr 08/07/18 10:00 08/09/18 09:24 Cleocin 600 Mg Premix Ivpb - IVPB 100 mls/hr Q8H-IV ELEONORA Administration Protocol Cefepime HCl 1 gm/ Dextrose 100 mls @ 200 mls/hr 08/07/18 10:00 08/09/18 09: 24 IVPB 200 mls/hr DAILY ELEONORA Administration Insulin Aspart 1 vial 08/08/18 06:41 08/09/18 11:32 Novolog Vial Sliding Scale - SQ 14 unit ACHS ELEONORA Administration Protocol Insulin Detemir 10 units 08/08/18 16:00 08/09/18 09:51 Levemir Vial SQ 10 units DAILY ELEONORA Administration Mupirocin 1 applic 08/06/18 22:00 08/09/18 09:36 Bactroban Ointment (For Decolonization) - NS 08/11/18 21:59 1 applic BID ELEONORA Administration Pantoprazole Sodium 40 mg 08/07/18 10:00 08/09/18 09:24 Protonix Iv IVPUSH 40 mg DAILY ELEONORA Administration Impression 1. ESRD 2. cardiac arrest PEA 3. gout 4. DM 5. neuropathy 6. hyperlipidemia 7. obesity 8. aspiration PNA 9. CHF diastolic Plan - spoke to family, Sherie and his sister. They would like to hold off dialysis for now. They would also like a neruo evaluation. They also asked for the organ donor network to be called. - cont vent support - pressors to a MAP of 65 - neuro called by ICU to see pt - discussed at length with ICU team - discussed with cardio
--- NOTE | 2018-08-09 13:05 | PN ---
Teaching Attending Note Name of Resident: Violeta Cerda ATTENDING PHYSICIAN STATEMENT I saw and evaluated the patient. I reviewed the resident's note and discussed the case with the resident. I agree with the resident's findings and plan as documented. SUBJECTIVE: Pt seen and examined in the ICU. Remains intubated, unresponsive off sedation. + spontaneous breaths but no other cranial reflexes. OBJECTIVE: Vital Signs Period Temp Pulse Resp BP Sys/[place] Pulse Ox Last 24 Hr 97.2 F-100.6 F 74-99 21-22 74-112/47-67 97 Intake & Output 08/06/18 08/07/18 08/08/18 08/09/18 23:59 23:59 23:59 23:59 Intake Total 358 1246 Balance 358 1246 Weight 118 kg 126.7 kg 123.377 kg Gen: intubated, unresponsive Heart: RRR Lung: scattered rhonchi Abd: soft, nontender Ext: + edema CBC, BMP 08/09/18 05:30 08/09/18 05:30 Active Medications Chlorhexidine Gluconate (Hibiclens For Decolonization -) 1 applic TP HS ELEONORA Last Admin: 08/08/18 21:34 Dose: 1 applic Heparin Sodium (Porcine) (Heparin -) 5,000 unit SQ TID ELEONORA Norepinephrine Bitartrate 4, (000 mcg/ Dextrose) 500 mls @ 37.5 mls/hr IV TITR ELEONORA; Protocol Last Titration: 08/09/18 09:24 Dose: 10 mcg/min, 75 mls/hr Vasopressin 50 units/ Sodium (Chloride) 100 mls @ 4 mls/hr IVPB TITR ELEONORA; Protocol Last Admin: 08/09/18 02:50 Dose: Not Given Clindamycin Phosphate (Cleocin 600 Mg Premix Ivpb -) 600 mg in 50 mls @ 100 mls /hr IVPB Q8H-IV ELEONORA; Protocol Last Admin: 08/09/18 09:24 Dose: 100 mls/hr Cefepime HCl 1 gm/ Dextrose 100 mls @ 200 mls/hr IVPB DAILY ELEONORA Last Admin: 08/09/18 09:24 Dose: 200 mls/hr Insulin Aspart (Novolog Vial Sliding Scale -) 1 vial SQ ACHS ELEONORA; Protocol Last Admin: 08/09/18 11:32 Dose: 14 unit Insulin Detemir (Levemir Vial) 10 units SQ DAILY ELEONORA Last Admin: 08/09/18 09:51 Dose: 10 units Mupirocin (Bactroban Ointment (For Decolonization) -) 1 applic NS BID [facility] Stop: 08/11/18 21:59 Last Admin: 08/09/18 09:36 Dose: 1 applic Pantoprazole Sodium (Protonix Iv) 40 mg IVPUSH DAILY [facility] Last Admin: 08/09/18 09:24 Dose: 40 mg ASSESSMENT AND PLAN: s/p Cardiopulmonary Arrest Suspect Severe Anoxic Brain Injury Suspect Aspiration Pneumonia Septic Shock Lactic Acidosis +Troponins likely Demand Ischemia ESRD on HD LV Diastolic Dysfunction Pulmonary HTN Morbid Obesity Obstructive Sleep Apnea DM - continue antibiotics - f/u cultures - titrate pressors to maintain MAP >65 - monitor off all sedation to assess mental status - monitor neuro exam - not a candidate for weaning at this time - DVT/GI prophylaxis - poor overall prognosis for meaningful recovery - continue discussions regarding goals of care - pt DNR critical care time spent in reviewing chart, evaluating patient and formulating plan 35 min
[2018-08-09] MEDS: HEPARIN NA (PORCINE) 5,000 UNITS/ML 1ML VIAL SQ SCH ×2 (13:37→23:17)
--- NOTE | 2018-08-09 13:56 | CONSULT ---
Consult - text type - Consultation Consultation Note: Neurology CHIEF COMPLAINT: Cardiac Arrest PCP: Dr. Schroeder HISTORY OF PRESENT ILLNESS: 52yo M with h/o ESRD (M/W/F), dCHF, IDDM, pulmonary HTN, MJ, gout, and anemia of chronic disease who presented to the ED due to a witnessed cardiac arrest. Pt was receiving HD and about 1.5 hrs into his session he was witnessed to become unresponsive 2/2 to sudden cardiac arrest (~5:45pm). During his dialysis session it was noted that pt was hypotensive and was given Midodrine for support. Pt has previously been on Midodrine before, however he did not respond to his baseline dosing this time. ACLS protocol was followed and upon arrival of EMS pt was intubated with a Kendrick Supraglottic tube and placed on a kelly compression device. Pt's original rhythm was noted to be PEA. Pt received 4 rounds of epi, 1 amp NaHCO3, 1 amp CaGluc in the field. Pt arrived at the ED shortly thereafter where CPR/ACLS protocol was continued. He received another 3 rounds of epi, 1 amp HCO3, and 1 amp CaGluc while noting rhythm changes to Wide Complex ventricular tachycardia. At this point pt was noted to have large amount secretions from his oropharynx with desaturation to 40's on pulse oximetry. Pt's was reintubated with size 7.0 ETT at the 22 jania resulting in increased saturations and notable ROSC at this time (total arrest time 50minutes ) per notes. Pt had no return of neurological function and thus post-arrest TTM was initiated. Pt was placed on Levophed due to refractory hypotension at this time. I was contacted by family friend, Dr. Juan who is not participating in care, but close to the family and provided details of case. Consulted by ICU for neurologic status and managment. discussed with resident and patient seenat bedside, does not demonstrate evidence of gag reflex or corneal reflex. Minimal pupillary response on the left from 4-3 mm at best. discussed with the ICU to have noncontrast head CT for objective evaluation, can not proclaim brain (patient also with brief but shallow spontaneous respiration off vent as per Dr. Musa). However, very poor prognosis and not likely to have meaningful recovery. Spoke with daughter, Sherie, in detail regarding clinical status and poor prognosis. They're considering organ donation and compassionate extubation, which is certainly reasonable. PAST MEDICAL HISTORY: ESRD (M/W/F) dCHF IDDM PAH HTN MJ Gout Anemia of chronic disease PAST SURGICAL HISTORY: AVF creation Social History: Unable to obtain Family History: Unable to obtain Allergies amoxicillin trihydrate [From Augmentin] Allergy (Intermediate, Verified 19:55) Rash ciprofloxacin [From Cipro] Allergy (Intermediate, Verified 08/06/18 19:55) Rash ciprofloxacin HCl [From Cipro] Allergy (Intermediate, Verified 08/06/18 19:55) Rash potassium clavulanate [From Augmentin] Allergy (Intermediate, Verified 08/06/18 19:55) Rash cyclosporine Allergy (Verified 08/06/18 19:55) HOME MEDICATIONS: Home Medications Medication Instructions Recorded Aspirin [ASA -] 81 mg PO DAILY 02/14/16 Atorvastatin Ca [Lipitor] 10 mg PO HS 02/14/16 Gabapentin 400 mg PO DAILY 02/14/16 Sevelamer Carbonate [Renvela] 3,200 mg PO TID 01/05/18 Folic Acid/Vit B Complex and C 1 each PO 08/06/18 [Dialyvite Tablet] REVIEW OF SYSTEMS Unable to obtain PHYSICAL EXAMINATION Vital Signs Period Temp Pulse Resp BP Sys/[place] Pulse Ox Last 24 Hr 97.2 F-100.6 F 74-99 16-22 74-112/47-67 97 GENERAL: Unresponsive to painful stimuli HEENT: Dried blood of left nare, NC, atraumatic calvarium, fixed pupils without corneal reflex, no doll's eyes, no gag reflex elicited, ETT noted with feculent materials suctions from oropharynx NECK: No JVD, trachea midline LUNGS: Rhonchorous breath sounds bilaterally. No wheezes, and no crackles. AC ventilator mode HEART: RRR, normal S1 and S2 without murmu. Chest wall noted with abrasions from Kelly device ABDOMEN: Soft, distended, distant hypoactive bowel sounds, no livedo reticularis MUSCULOSKELETAL: No CVA tenderness. EXTREMITIES: 1+ DP pulses, warm, No peripheral edema. Cap refill ~2-3sec. L AVF noted with weak palpable thrill NEUROLOGICAL: Fixed pupils, no corneal reflex, no gag reflex with ETT suction catheter, does not respond to noxious stimulation SKIN: Warm, dry, normal turgor, no rashes CBCD WBC 22.3 K/mm3 (4.0-10.0) H 08/09/18 05:30 RBC 3.55 M/mm3 (4.00-5.60) L 08/09/18 05:30 Hgb 10.7 GM/dL (11.7-16.9) L 08/09/18 05:30 Hct 34.6 % (35.4-49) L 08/09/18 05:30 MCV 97.6 fl (80-96) H 08/09/18 05:30 MCHC 30.9 g/dl (32.0-35.9) L 08/09/18 05:30 RDW 17.4 % (11.9-15.9) H 08/09/18 05:30 Plt Count 196 K/MM3 (134-434) 08/09/18 05:30 MPV 10.4 fl (7.5-11.1) 08/09/18 05:30 CMP Sodium 131 mmol/L (136-145) L 08/09/18 05:30 Potassium 5.2 mmol/L (3.5-5.1) H 08/09/18 05:30 Chloride 93 mmol/L (98-107) L 08/09/18 05:30 Carbon Dioxide 22 mmol/L (21-32) 08/09/18 05:30 Anion Gap 15 MMOL/L (8-16) 08/09/18 05:30 BUN 53 mg/dL (7-18) H 08/09/18 05:30 Creatinine 5.2 mg/dL (0.55-1.3) H 08/09/18 05:30 Creat Clearance w eGFR 11.71 (>60) 08/09/18 05:30 Random Glucose 414 mg/dL (74-106) H* 08/09/18 05:30 Calcium 8.6 mg/dL (8.5-10.1) 08/09/18 05:30 Total Bilirubin 0.6 mg/dL (0.2-1) 08/09/18 05:30 AST 244 U/L (15-37) H 08/09/18 05:30 ALT 55 U/L (13-61) 08/09/18 05:30 Alkaline Phosphatase 179 U/L (45-117) H 08/09/18 05:30 Total Protein 6.0 g/dl (6.4-8.2) L 08/09/18 05:30 Albumin 2.2 g/dl (3.4-5.0) L 08/09/18 05:30 CARDIAC ENZYMES Creatine Kinase 401 U/L (26-308) H 08/08/18 05:30 Troponin I 0.33 ng/ml (0.00-0.05) H 08/08/18 05:30 ASSESSMENT/PLAN: 52yo M with h/o ESRD (M/W/F), dCHF, IDDM, pulmonary HTN, MJ, gout, and anemia of chronic disease who presented to the ED due to a witnessed cardiac arrest. Pt was receiving HD and about 1.5 hrs into his session he was witnessed to become unresponsive 2/2 to sudden cardiac arrest (~5:45pm), total arrest time 50 minutes per notes. Pt had no return of neurological function and thus post- arrest TTM was initiated. Pt was placed on Levophed due to refractory hypotension at this time. I was contacted by family friend, Dr. Juan who is not participating in care, but close to the family and provided details of case. Consulted by ICU for neurologic status and managment. discussed with resident and patient seenat bedside, does not demonstrate evidence of gag reflex or corneal reflex. Minimal pupillary response on the left from 4-3 mm at best. discussed with the ICU to have noncontrast head CT for objective evaluation, can not proclaim brain (patient also with brief but shallow spontaneous respiration off vent as per Dr. Musa). However, very poor prognosis and not likely to have meaningful recovery. Spoke with daughter, Sherie, in detail regarding clinical status and poor prognosis. They're considering organ donation and compassionate extubation, which is certainly reasonable. Follow up CT head, family to decide goals of care. May hold off dialysis if family wishes as may be medically futile. Critical care time 45 mins.
--- NOTE | 2018-08-09 15:00 | ECHO ---
Name: OLYA VANESSA Exam:Adult Echocardiogram Study Date: 08/09/2018 10:25 AM Age: 52 yrs Reason For Study: S/P ARREST Height: 69 in Weight: 279 lb BSA: 2.4 m2 Doppler Measurements & Calculations MV E max georgi: 66.9 cm/sec Ao V2 max: 69.4 cm/sec MV A max georgi: 58.7 cm/sec Ao max P.9 mmHg MV E/A: 1.1 MV dec time: 0.21 sec LV V1 max P.2 mmHg LV V1 max: 89.2 cm/sec Procedure The study was technically limited with all images being suboptimal in quality. Left Ventricle The left ventricle is not well visualized. LV systolic function and regional wall motion could not be accurately assessed due to poor acoustic window. Right Ventricle The right ventricle is not well visualized. Atria The left atrium is not well visualized. Right atrium not well visualized. Mitral Valve The mitral valve is not well visualized. Tricuspid Valve The tricuspid valve is not well visualized. Aortic Valve The aortic valve is not well visualized. Pulmonic Valve The pulmonic valve is not well visualized. Great Vessels The aortic root is not well visualized. Pericardium/Pleura There is no pericardial effusion. Interpretation Summary The study was technically limited with all images being suboptimal in quality. LV systolic function and regional wall motion could not be accurately assessed due to poor acoustic w indow The right ventricle is not well visualized. Valvular regurgitation could not be accurately assessed due to poor acoustic window There is no pericardial effusion. Dev Brian MD 08/09/2018 03:00 PM
--- NOTE | 2018-08-09 16:00 | PN ---
Teaching Attending Note Name of Resident: Sara Norman ATTENDING PHYSICIAN STATEMENT I saw and evaluated the patient. I reviewed the resident's note and discussed the case with the resident. I agree with the resident's findings and plan as documented with exceptions below. SUBJECTIVE: Patient seen and examined. Intubated, sedated. Family at bedside. OBJECTIVE: Vital Signs Period Temp Pulse Resp BP Sys/[place] Pulse Ox Last 24 Hr 97.2 F-100.6 F 74-99 16-22 74-112/47-67 97 Intake & Output 08/06/18 08/07/18 08/08/18 08/09/18 23:59 23:59 23:59 23:59 Intake Total 358 1246 Balance 358 1246 Weight 260 lb 2.327 oz 279 lb 5.211 oz 272 lb GENERAL: intubated sedated, morbidly obese (BMI 41), HEAD: Normal with no signs of trauma. EYES: pupils fixed and dilated ENT: NG tube in place, dried blood on the nostrils NECK: soft, limited exam given habitus LUNGS: decreased air entry all over, further exam limited HEART: Regular rate and rhythm, S1, S2 ABDOMEN: soft, obese, distended, hypoactive bowel sounds. EXTREMITIES: positive pulses Laboratory Results - last 24 hr 08/08/18 08/08/18 08/09/18 18:14 21:27 05:30 WBC RBC Hgb Hct MCV MCH MCHC RDW Plt Count MPV Absolute Neuts (auto) Neutrophils % Neutrophils % (Manual) Band Neutrophils % Lymphocytes % Lymphocytes % (Manual) Monocytes % Monocytes % (Manual) Eosinophils % Eosinophils % (Manual) Basophils % Basophils % (Manual) Myelocytes % (Man) Promyelocytes % (Man) Blast Cells % (Manual) Nucleated RBC % Metamyelocytes Hypochromia Platelet Estimate Polychromasia Poikilocytosis Anisocytosis Microcytosis Macrocytosis Sodium Potassium Chloride Carbon Dioxide Anion Gap BUN Creatinine Creat Clearance w eGFR POC Glucometer 334 345 Random Glucose Calcium Phosphorus Magnesium Total Bilirubin AST ALT Alkaline Phosphatase Total Protein Albumin Random Vancomycin 8.8 L 08/09/18 08/09/18 08/09/18 05:30 05:30 11:26 WBC 22.3 H RBC 3.55 L Hgb 10.7 L Hct 34.6 L MCV 97.6 H MCH 30.1 MCHC 30.9 L RDW 17.4 H Plt Count 196 MPV 10.4 Absolute Neuts (auto) 19.1 H Neutrophils % 85.5 H Neutrophils % (Manual) 76.8 Band Neutrophils % 9.1 Lymphocytes % 5.3 L D Lymphocytes % (Manual) 5.0 L D Monocytes % 9.0 Monocytes % (Manual) 9 Eosinophils % 0.1 D Eosinophils % (Manual) 0.0 Basophils % 0.1 Basophils % (Manual) 0.0 Myelocytes % (Man) 0 D Promyelocytes % (Man) 0 Blast Cells % (Manual) 0 Nucleated RBC % 0 Metamyelocytes 0 Hypochromia 0 Platelet Estimate Normal Polychromasia 0 Poikilocytosis 0 Anisocytosis 1+ Microcytosis 0 Macrocytosis 1+ Sodium 131 L Potassium 5.2 H Chloride 93 L Carbon Dioxide 22 Anion Gap 15 BUN 53 H Creatinine 5.2 H Creat Clearance w eGFR 11.71 POC Glucometer 423 Random Glucose 414 H* Calcium 8.6 Phosphorus > 9.0 H* Magnesium 2.6 H Total Bilirubin 0.6 AST 244 H ALT 55 Alkaline Phosphatase 179 H Total Protein 6.0 L Albumin 2.2 L Random Vancomycin Microbiology 08/06/18 20:10 Blood - Peripheral Venous Blood Culture - Preliminary Staphylococcus Coagulase Neg 08/06/18 20:10 Blood - Peripheral Venous Blood Culture - Preliminary NO GROWTH OBTAINED AFTER 48 HOURS, INCUBATION TO CONTINUE FOR 3 DAYS. ASSESSMENT AND PLAN: 52 yom with PMhx of IDDM, diastolic CHF, pulmonary HTN, renal failure (on HD MWF ), sleep apnea, gout, recently advised midodrine with HD, admitted with cardiac arrest (s/p almost 1 hour of CPR) -Cardiac arrest -Acute hypoxic respiratory failure -Shock, r/o sepsis, unlikely cardiogenic -Suspected aspiration PNA -1/2 coag neg staph bacteremia -Hyperkalemia -Acute combined respiratory metabolic acidosis -Hyperglycemia -Hyperkalemia -Chronic diastolic CHF -IDDM -Pulmonary HTN -ESRD on HD -MJ -Gout Plan: Intubated. Off vasopressin. Titrate norepinephrine for MAP >65. s/p hypothermia protocol,s/p passive rewarming. occasional spontaneous breaths per ICU team but no mental status Neurology input noted. CT head. HD per renal. Monitor electrolytes. ID input noted. Cefepime/vanco/clindamycin. Blood cx noted Hold Anti-HTN. Discuss with ICU about tube feeds Levemir 10 units daily Pupils fixed and dilated. Prognosis grim. Palliative care consult. Ongoing discussion with family Code status: DNR, ongoing discussions about compassionate weaning, will follow up. DVTPPX Dispo ICU level of care. Plan discussed with nursing, care co-ordinated with ICU team. Total critical care time spent 36 min.
--- NOTE | 2018-08-09 16:14 | PN ---
Physical Exam: SUBJECTIVE: Patient seen and examined; intubated; mech vent; non responsive OBJECTIVE: Vital Signs Period Temp Pulse Resp BP Sys/[place] Pulse Ox Last 24 Hr 97.2 F-100.6 F 74-99 16-22 74-112/47-67 97 GENERAL: intubated; not responsive HEAD: Normal with no signs of trauma. EYES: pupil fixed; non reactive NO gag reflex LUNGS: Breath sounds equal, clear to auscultation bilaterally, no wheezes, no crackles, no accessory muscle use. HEART: Regular rate and rhythm, S1, S2 without murmur, rub or gallop. ABDOMEN: Soft, nontender, nondistended, normoactive bowel sounds, no guarding, no rebound, no hepatosplenomegaly, no masses. EXTREMITIES: 2+ pulses, warm, well-perfused, no edema. NEUROLOGICAL: non responsive; no gag reflex; PSYCH: Normal mood, normal affect. SKIN: Warm, dry, normal turgor, no rashes or lesions noted Laboratory Results - last 24 hr 08/08/18 08/08/18 08/09/18 18:14 21:27 05:30 WBC RBC Hgb Hct MCV MCH MCHC RDW Plt Count MPV Absolute Neuts (auto) Neutrophils % Neutrophils % (Manual) Band Neutrophils % Lymphocytes % Lymphocytes % (Manual) Monocytes % Monocytes % (Manual) Eosinophils % Eosinophils % (Manual) Basophils % Basophils % (Manual) Myelocytes % (Man) Promyelocytes % (Man) Blast Cells % (Manual) Nucleated RBC % Metamyelocytes Hypochromia Platelet Estimate Polychromasia Poikilocytosis Anisocytosis Microcytosis Macrocytosis Sodium Potassium Chloride Carbon Dioxide Anion Gap BUN Creatinine Creat Clearance w eGFR POC Glucometer 334 345 Random Glucose Calcium Phosphorus Magnesium Total Bilirubin AST ALT Alkaline Phosphatase Total Protein Albumin Random Vancomycin 8.8 L 08/09/18 08/09/18 08/09/18 05:30 05:30 11:26 WBC 22.3 H RBC 3.55 L Hgb 10.7 L Hct 34.6 L MCV 97.6 H MCH 30.1 MCHC 30.9 L RDW 17.4 H Plt Count 196 MPV 10.4 Absolute Neuts (auto) 19.1 H Neutrophils % 85.5 H Neutrophils % (Manual) 76.8 Band Neutrophils % 9.1 Lymphocytes % 5.3 L D Lymphocytes % (Manual) 5.0 L D Monocytes % 9.0 Monocytes % (Manual) 9 Eosinophils % 0.1 D Eosinophils % (Manual) 0.0 Basophils % 0.1 Basophils % (Manual) 0.0 Myelocytes % (Man) 0 D Promyelocytes % (Man) 0 Blast Cells % (Manual) 0 Nucleated RBC % 0 Metamyelocytes 0 Hypochromia 0 Platelet Estimate Normal Polychromasia 0 Poikilocytosis 0 Anisocytosis 1+ Microcytosis 0 Macrocytosis 1+ Sodium 131 L Potassium 5.2 H Chloride 93 L Carbon Dioxide 22 Anion Gap 15 BUN 53 H Creatinine 5.2 H Creat Clearance w eGFR 11.71 POC Glucometer 423 Random Glucose 414 H* Calcium 8.6 Phosphorus > 9.0 H* Magnesium 2.6 H Total Bilirubin 0.6 AST 244 H ALT 55 Alkaline Phosphatase 179 H Total Protein 6.0 L Albumin 2.2 L Random Vancomycin Active Medications Generic Name Dose Route Start Last Admin Trade Name Freq PRN Reason Stop Dose Admin Chlorhexidine Gluconate 1 applic 08/06/18 22:00 08/08/18 21:34 Hibiclens For Decolonization - TP 1 applic HS ELEONORA Administration Heparin Sodium (Porcine) 5,000 unit 08/09/18 14:00 08/09/18 13:37 Heparin - SQ 5,000 unit TID ELEONORA Administration Norepinephrine Bitartrate 4, 500 mls @ 37.5 mls/hr 08/06/18 19:30 08/09/18 09 :24 000 mcg/ Dextrose IV 10 mcg/min TITR ELEONORA 75 mls/hr Titration Protocol 5 MCG/MIN Vasopressin 50 units/ Sodium 100 mls @ 4 mls/hr 08/07/18 00:15 08/09/18 02:50 Chloride IVPB Not Given TITR ELEONORA Protocol 2 UNITS/HR Clindamycin Phosphate 600 mg in 50 mls @ 100 mls/hr 08/07/18 10:00 08/09/18 09:24 Cleocin 600 Mg Premix Ivpb - IVPB 100 mls/hr Q8H-IV ELEONORA Administration Protocol Cefepime HCl 1 gm/ Dextrose 100 mls @ 200 mls/hr 08/07/18 10:00 08/09/18 09: 24 IVPB 200 mls/hr DAILY ELEONORA Administration Insulin Aspart 1 vial 08/08/18 06:41 08/09/18 11:32 Novolog Vial Sliding Scale - SQ 14 unit ACHS ELEONORA Administration Protocol Insulin Detemir 10 units 08/08/18 16:00 08/09/18 09:51 Levemir Vial SQ 10 units DAILY ELEONORA Administration Mupirocin 1 applic 08/06/18 22:00 08/09/18 09:36 Bactroban Ointment (For Decolonization) - NS 08/11/18 21:59 1 applic BID ELEONORA Administration Pantoprazole Sodium 40 mg 08/07/18 10:00 08/09/18 09:24 Protonix Iv IVPUSH 40 mg DAILY ELEONORA Administration ASSESSMENT/PLAN: 52 yom with PMhx of IDDM, diastolic CHF, pulmonary HTN, renal failure (on HD MWF ), sleep apnea, gout, recently advised midodrine with HD, admitted with cardiac arrest while getting HD -Cardiac arrest -Acute hypoxic respiratory failure -Shock, r/o sepsis, unlikely cardiogenic -Suspected aspiration PNA -GPC bacteremia 1/2 -Hyperkalemia -Acute combined respiratory metabolic acidosis -Hyperglycemia -Hyperkalemia -Chronic diastolic CHF -IDDM -Pulmonary HTN -ESRD on HD -MJ -Gout -GOC discusses with family ; patient organ donor ; they are leaning toward compassionate wean Visit type - Emergency Visit Emergency Visit: Yes ED Registration Date: 08/06/18 Care time: The patient presented to the Emergency Department on the above date and was hospitalized for further evaluation of their emergent condition. - New Patient This patient is new to me today: Yes Date on this admission: 08/09/18 - Critical Care Critical Care patient: Yes Total Critical Care Time (in minutes): 35 Critical Care Statement: The care of this patient involved high complexity decision making to prevent further life threatening deterioration of the patient 's condition and/or to evaluate & treat vital organ system(s) failure or risk of failure.
[2018-08-09] MEDS: NOREPINEPHRINE BITARTRATE 4,000 MCG in DEXTROSE 5%-WATER - 496 ML IV SCH (17:37)
[2018-08-09 18:04] LABS: BASO % 0.6 % (0-2.0); EOS % 0.1 % (0-4.5); HEMATOCRIT 33.3 % (35.4-49); HEMOGLOBIN 10.3 GM/dL (11.7-16.9); MCH 31.1 pg (25.7-33.7); MEAN CELL VOLUME 100.2 fl (80-96); MONO % 7.1 % (3.8-10.2); NEUT % 90.2 % (42.8-82.8); RBC 3.33 M/mm3 (4.00-5.60); RDW 17.1 % (11.9-15.9)
[2018-08-09 18:51] LABS: INR 1.22 (0.83-1.09); PROTHROMBIN TIME (PATIENT) 14.4 SEC (9.7-13.0)
[2018-08-09 18:54] LABS: ACTIVATED PTT 28.3 SECONDS (25.2-36.5)
[2018-08-09 18:55] LABS: ARTERIAL BLD GAS O2 SATURATION 91.5 % (95-98); ARTERIAL BLOOD GAS BASE EXCESS -9.4 meq/l (-2-2); ARTERIAL BLOOD GAS PO2 79.5 mmHg (80-105)
[2018-08-09 18:58] LABS: WHITE BLOOD COUNT 35.1 K/mm3 (4.0-10.0)
[2018-08-09 18:58] LABS: ARTERIAL BLOOD GAS pH 7.08 (7.35-7.45)
[2018-08-09 18:59] LABS: ARTERIAL BLOOD GAS PCO2 74.3 mmHg (35-45)
[2018-08-09 19:04] LABS: ALBUMIN 2.1 g/dl (3.4-5.0); ALK PHOS 218 U/L (45-117); AMYLASE 113 U/L (25-115); ANION GAP 14 MMOL/L (8-16); BILIRUBIN,DIRECT 0.5 mg/dL (0.0-0.2); BILIRUBIN,TOTAL 0.8 mg/dL (0.2-1); BLOOD UREA NITROGEN 61 mg/dL (7-18); CALCIUM 8.7 mg/dL (8.5-10.1); CHLORIDE 93 mmol/L (98-107); CO2 24 mmol/L (21-32); CREATININE 5.8 mg/dL (0.55-1.3); LIPASE 391 U/L (73-393); MAGNESIUM 2.7 mg/dL (1.8-2.4); POTASSIUM 5.5 mmol/L (3.5-5.1); SGOT/AST 456 U/L (15-37); SGPT/ALT 66 U/L (13-61); SODIUM 130 mmol/L (136-145); TOT PROT 6.6 g/dl (6.4-8.2)
[2018-08-09 19:15] LABS: GLUCOSE,RANDOM 408 mg/dL (74-106); PHOSPHOROUS 9.3 mg/dL (2.5-4.9)
[2018-08-09] MEDS ORDERED: INSULIN REGULAR HUMAN 100 UNITS/ML *VIAL IVPUSH ONE (20:36)
[2018-08-09] MEDS ORDERED: NOREPINEPHRINE BITARTRATE 4 MG/4 ML ML IV ONE (20:44)
[2018-08-09] MEDS ORDERED: SODIUM POLYSTYRENE SULFONATE 15 GM/60 ML BOTTLE PO ONE (20:54)
[2018-08-09] MEDS ORDERED: CALCIUM GLUCONATE 10% - 1,000 MG/10 ML VIAL IVPB ONE (20:55)
[2018-08-09] MEDS ORDERED: SODIUM CHLORIDE IV SCH (21:15)
[2018-08-09] MEDS ORDERED: PHENYLEPHRINE HCL 20,000 MCG in SODIUM CHLORIDE 248 ML IVPB SCH (21:15)
[2018-08-09] MEDS ORDERED: NOREPINEPHRINE BITARTRATE IV SCH (21:15)
[2018-08-09] MEDS ORDERED: FLUDROCORTISONE ACETATE 0.1 MG TABLET (FP) PO SCH (21:45)
[2018-08-09 22:33] LABS: MEAN PLT VOLUME 10.7 fl (7.5-11.1); PLATELET COUNT 208 K/MM3 (134-434)
[2018-08-09] MEDS: ALBUTEROL SO4 0.083% IH SOL 2.5 MG/3 ML VIAL.NEB. NEB SCH (22:46)
--- NOTE | 2018-08-09 22:50 | PN ---
Progress Note (short form) - Note Progress Note: RN from [facility] present at bed side this evening. Labs noted for hyperkalemia of 5.5. Treated with IV Insulin, Sugar was 400 so dextrose not given, Kayexelate, albuterol and calcium gluconate given. Plan was to repeat BMP, Mg, phos every 6 hours. Patient was on 30 mcg of Levophed and 6 mcg of Vasopressin. IV Hydrocortisone and Fludrocortisone was added. MAP was < 65 even on two pressors. Phenylepherine was added but not started. Discussed with patient's , sister Princess and [place] Carlos from [facility] who were at bed side. [facility] [place] Carlos, reviewed the case, given the patient with ESRD, cardiac arrest and fatty liver, now requiring third pressor, not a candidate for organ donation. Family informed. 11:46 PM Patient's (Ms. Muñoz) decided to compassionately wean the patient. No IV antibiotics, no IV fluids, no pressors, no mechanical ventilation , no morphine drip. Comfort measures only with Nasal canula, IV Morphine pushes and IV Ativan pushes. Asystole on the monitor. No corneal reflex, no gag reflex, no spontaneous breath , no heart sounds. Patient pronounced at 08/10/2018 12:09 AM (Ms. Muñoz), sister Princess, at bed side.
[2018-08-09] MEDS: CHLORHEXIDINE GLUCONATE 4% CLEANSER FOR DECOLONIZATION TP SCH (23:17)
[2018-08-09] MEDS ORDERED: MORPHINE SULFATE 2 MG/ML VIAL IVPUSH PRN (23:51)
[2018-08-09] MEDS ORDERED: LORazepam 2 MG/ML SDV VIAL IVPUSH PRN (23:52)
[2018-08-10 00:14] VITALS: PULSE 105
[2018-08-10 01:26] VITALS: BP 0/0; TEMP 99.1
--- NOTE | 2018-08-10 14:55 | DS ---
Physical Exam: OBJECTIVE: Vital Signs Period Temp Pulse Resp BP Sys/[place] Pulse Ox Last 24 Hr 97.8 F-99.1 F 0-105 0-18 0-130/0-64 100 PHYSICAL EXAM I did not examine this patient LABS Laboratory Results - last 24 hr 08/09/18 08/09/18 08/09/18 17:00 17:00 17:00 WBC 35.1 H* RBC 3.33 L Hgb 10.3 L Hct 33.3 L MCV 100.2 H MCH 31.1 MCHC 31.0 L RDW 17.1 H Plt Count 208 MPV 10.7 Absolute Neuts (auto) 31.7 H Total Counted 100 Neutrophils % 90.2 H Neutrophils % (Manual) 83.0 H Band Neutrophils % 10.0 Lymphocytes % 2.0 L D Lymphocytes % (Manual) 2.0 L D Monocytes % 7.1 Monocytes % (Manual) 5 Eosinophils % 0.1 Basophils % 0.6 D Nucleated RBC % 0 PT with INR INR PTT (Actin FS) Fibrinogen Anticoagulation Therapy Puncture Site ABG pH ABG pCO2 at Pt Temp ABG pO2 at Pt Temp ABG HCO3 ABG O2 Sat (Measured) ABG O2 Content ABG Base Excess Get Test O2 Delivery Device Oxygen Flow Rate Vent Mode Vent Rate Mechanical Rate PEEP Pressure Support Vent Sodium 130 L Potassium 5.5 H Chloride 93 L Carbon Dioxide 24 Anion Gap 14 BUN 61 H Creatinine 5.8 H Creat Clearance w eGFR 10.32 POC Glucometer Random Glucose 408 H* Hemoglobin A1c % Calcium 8.7 Phosphorus 9.3 H* Magnesium 2.7 H Total Bilirubin 0.8 Direct Bilirubin 0.5 H Cancelled AST 456 H ALT 66 H Alkaline Phosphatase 218 H Creatine Kinase 2348 H Cancelled Creatine Kinase Index 0.4 CK-MB (CK-2) 10.8 H Troponin I 0.17 H Cancelled Total Protein 6.6 Albumin 2.1 L Total Amylase 113 Cancelled Lipase 391 Cancelled Blood Type Antibody Screen 08/09/18 08/09/18 08/09/18 17:00 17:00 17:00 WBC RBC Hgb Hct MCV MCH MCHC RDW Plt Count MPV Absolute Neuts (auto) Total Counted Neutrophils % Neutrophils % (Manual) Band Neutrophils % Lymphocytes % Lymphocytes % (Manual) Monocytes % Monocytes % (Manual) Eosinophils % Basophils % Nucleated RBC % PT with INR 14.40 H INR 1.22 H PTT (Actin FS) 28.3 Fibrinogen > 500.0 H Anticoagulation Therapy Puncture Site ABG pH ABG pCO2 at Pt Temp ABG pO2 at Pt Temp ABG HCO3 ABG O2 Sat (Measured) ABG O2 Content ABG Base Excess Get Test O2 Delivery Device Oxygen Flow Rate Vent Mode Vent Rate Mechanical Rate PEEP Pressure Support Vent Sodium Potassium Chloride Carbon Dioxide Anion Gap BUN Creatinine Creat Clearance w eGFR POC Glucometer Random Glucose Hemoglobin A1c % Calcium Phosphorus Magnesium Total Bilirubin Direct Bilirubin AST ALT Alkaline Phosphatase Creatine Kinase Creatine Kinase Index CK-MB (CK-2) Troponin I Total Protein Albumin Total Amylase Lipase Blood Type A POSITIVE Antibody Screen Negative 08/09/18 08/09/18 08/09/18 17:10 18:25 18:30 WBC RBC Hgb Hct MCV MCH MCHC RDW Plt Count MPV Absolute Neuts (auto) Total Counted Neutrophils % Neutrophils % (Manual) Band Neutrophils % Lymphocytes % Lymphocytes % (Manual) Monocytes % Monocytes % (Manual) Eosinophils % Basophils % Nucleated RBC % PT with INR INR PTT (Actin FS) Fibrinogen Anticoagulation Therapy No Result Required. Puncture Site Arterial line ABG pH 7.08 L* ABG pCO2 at Pt Temp 74.3 H* ABG pO2 at Pt Temp 79.5 L ABG HCO3 21.1 L ABG O2 Sat (Measured) 91.5 L ABG O2 Content 13.3 L ABG Base Excess -9.4 L Get Test No Result Required. O2 Delivery Device No Result Required. Oxygen Flow Rate No Result Required. Vent Mode No Result Required. Vent Rate No Result Required. Mechanical Rate No Result Required. PEEP 5.0 Pressure Support Vent No Result Required. Sodium Potassium Chloride Carbon Dioxide Anion Gap BUN Creatinine Creat Clearance w eGFR POC Glucometer 372 Random Glucose Hemoglobin A1c % 8.4 H Calcium Phosphorus Magnesium Total Bilirubin Direct Bilirubin AST ALT Alkaline Phosphatase Creatine Kinase Creatine Kinase Index CK-MB (CK-2) Troponin I Total Protein Albumin Total Amylase Lipase Blood Type Antibody Screen 08/09/18 18:30 WBC RBC Hgb Hct MCV MCH MCHC RDW Plt Count MPV Absolute Neuts (auto) Total Counted Neutrophils % Neutrophils % (Manual) Band Neutrophils % Lymphocytes % Lymphocytes % (Manual) Monocytes % Monocytes % (Manual) Eosinophils % Basophils % Nucleated RBC % PT with INR INR PTT (Actin FS) Fibrinogen Anticoagulation Therapy Puncture Site ABG pH ABG pCO2 at Pt Temp ABG pO2 at Pt Temp ABG HCO3 ABG O2 Sat (Measured) ABG O2 Content ABG Base Excess Get Test O2 Delivery Device Oxygen Flow Rate Vent Mode Vent Rate Mechanical Rate PEEP Pressure Support Vent Sodium Potassium Chloride Carbon Dioxide Anion Gap BUN Creatinine Creat Clearance w eGFR POC Glucometer Random Glucose Hemoglobin A1c % Calcium Phosphorus Magnesium Total Bilirubin Direct Bilirubin AST ALT Alkaline Phosphatase Creatine Kinase Creatine Kinase Index CK-MB (CK-2) Troponin I Total Protein Albumin Total Amylase Lipase Blood Type A POSITIVE Antibody Screen Negative HOSPITAL COURSE: Date of Admission:08/06/18 Date of Discharge: 08/10/18 52 yom with PMhx of IDDM, diastolic CHF, pulmonary HTN, renal failure (on HD MWF ), sleep apnea, gout, recently advised midodrine with HD, admitted with cardiac arrest while getting HD. Placed in ICU mechanically ventilated. Family decided to compassionately wean him. No IV antibiotics, no IV fluids, no pressors, no mechanical ventilation, no morphine drip. Comfort measures only with Nasal canula, IV Morphine pushes and IV Ativan pushes. Patient pronounced at 2018 12:09 AM Minutes to complete discharge: 35 Discharge Summary Reason For Visit: CARDIAC ARREST - Instructions Disposition: - Home Medications Comprehensive Discharge Medication List: Ambulatory Orders Aspirin [ASA -] 81 mg PO DAILY 02/14/16 Atorvastatin Ca [Lipitor] 10 mg PO HS 02/14/16 Gabapentin 400 mg PO DAILY 02/14/16 Sevelamer Carbonate [Renvela] 3,200 mg PO TID 01/05/18 Folic Acid/Vit B Complex and C [Dialyvite Tablet] 1 each PO 08/06/18 This patient is new to me today: Yes Date on this admission: 08/10/18 Emergency Visit: Yes ED Registration Date: 08/06/18 Care time: The patient presented to the Emergency Department on the above date and was hospitalized for further evaluation of their emergent condition. Critical Care patient: Yes Total Critical Care Time (in minutes): 35 Critical Care Statement: The care of this patient involved high complexity decision making to prevent further life threatening deterioration of the patient 's condition and/or to evaluate & treat vital organ system(s) failure or risk of failure. - Discharge Referral Referred to [facility] No
== END 2018-08-10 00:09 | disposition expired | DRG 208 ==
LOC: JER 18:42 → JERBED 20:40 → JICU 08-07 00:21
PROVIDERS: ADMIT Internal Medicine; ATTEND Hospitalist
PROC: 0D9670Z Drainage of Stomach with Drainage Device, Via Natural or Artificial Opening (ICD-10-PCS; principal; 2018-08-06)
PROC: 5A1945Z Respiratory Ventilation, 24-96 Consecutive Hours (ICD-10-PCS; 2018-08-06)
PROC: 0BH17EZ Insertion of Endotracheal Airway into Trachea, Via Natural or Artificial Opening (ICD-10-PCS; 2018-08-06)
PROC: 5A1D70Z Performance of Urinary Filtration, Intermittent, Less than 6 Hours Per Day (ICD-10-PCS; 2018-08-07)
DX: J96.01 Acute respiratory failure with hypoxia (principal); J69.0 Pneumonitis due to inhalation of food and vomit; I21.A1 Myocardial infarction type 2; N18.6 End stage renal disease; K72.00 Acute and subacute hepatic failure without coma; A41.1 Sepsis due to other specified staphylococcus; R65.21 Severe sepsis with septic shock; E46 Unspecified protein-calorie malnutrition; G93.1 Anoxic brain damage, not elsewhere classified; Z68.41 Body mass index [BMI] 40.0-44.9, adult; I13.2 Hypertensive heart and chronic kidney disease with heart failure and with stage 5 chronic kidney disease, or end stage renal disease; I50.32 Chronic diastolic (congestive) heart failure; E87.2 Acidosis; I46.9 Cardiac arrest, cause unspecified; E66.01 Morbid (severe) obesity due to excess calories; I27.20 Pulmonary hypertension, unspecified; E88.09 Other disorders of plasma-protein metabolism, not elsewhere classified; R68.0 Hypothermia, not associated with low environmental temperature; E87.5 Hyperkalemia; E11.22 Type 2 diabetes mellitus with diabetic chronic kidney disease; G47.33 Obstructive sleep apnea (adult) (pediatric); M10.9 Gout, unspecified; D63.8 Anemia in other chronic diseases classified elsewhere; Z79.4 Long term (current) use of insulin; Z99.2 Dependence on renal dialysis; D72.829 Elevated white blood cell count, unspecified; I49.8 Other specified cardiac arrhythmias; I95.3 Hypotension of hemodialysis; E11.65 Type 2 diabetes mellitus with hyperglycemia; E11.42 Type 2 diabetes mellitus with diabetic polyneuropathy; Z99.81 Dependence on supplemental oxygen; K59.09 Other constipation; R57.0 Cardiogenic shock; Z88.1 Allergy status to other antibiotic agents; Z88.0 Allergy status to penicillin
CPT/HCPCS: 36415; 36600; 71045-TC-FY; 76700-TC; 80048; 80053; 82150; 82248; 82375; 82550; 82553; 82803; 82962; 83036; 83050; 83605; 83690; 83735; 84100; 84484; 85025; 85027; 85384; 85610; 85730; 86704; 86706; 86708; 86803; 86850; 86900; 86901; 87040; 87186; 87340; 93005; 93010; 93306-TC; 94002; 94640; 99285-25; G0480; J0131; J1644; J7030